=== PATIENT | male | born 1940 | race Caucasian/White ===

== ENCOUNTER 2020-01-29 08:17 | Outpatient (CLI) | payer MEDICARE, SELFPAY ==
--- NOTE | 2020-01-29 09:50 | ONC FU_ITS ---
Dr. Atwood Patient Follow-Up Note Patient: Lawson Castaneda Unit #: [id number]: 1940 Dicatated By: Mayo Atwood M.D.Date of Visit:Jan 29, 2020 Onc Med Follow-up/Prog Note Chief Complaint: Colon cancer. 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 He had seen Dr. Brown for anemia in December 2015. His laboratory studies were consistent with iron deficiency. Following parenteral iron replacement with Injectafer his hemoglobin increased from 8.8 to 11.6 g. In January 2016 he underwent GI evaluation with EGD and colonoscopy. The upper endoscopy showed evidence of reflux esophagitis, gastritis, and Lepe's esophagitis, but without dysplasia. The colonoscopy showed evidence of multiple widemouth diverticula in the mid descending colon. There was noted to be dark altered blood, but no signs of active bleeding. There were no other abnormalities noted. Subsequent to that procedure, he developed problems with abdominal pain and gas . His symptoms gradually worsened, and in June 2016 he was admitted to [facility] with evidence of distal small bowel obstruction. By CT scan, it did appear that the obstruction may have been extending into the transverse colon, but it was not well defined. He initially underwent placement of a colonic stent. On 07/02/2016 he underwent laparoscopic subtotal colectomy with stapled ileocolic anastomosis. The resection included the terminal ileum through the descending colon. He also underwent repair of an umbilical hernia. Pathology showed invasive moderately differentiated adenocarcinoma with transmural invasion into surrounding pericolonic adipose tissue. Tumor was noted to involve the serosal surface. The specimen included four additional adenomatous polyps. There was no involvement in 14 lymph nodes. The pathologic staging was pT4a, pN0. I had seen him initially on 08/09/2016 for further discussion regarding adjuvant chemotherapy. Ultimately, he opted not to take treatment, and he was then followed on observation/expectant management. His other medical illnesses include hypertension, hyperlipidemia, and GERD/peptic ulcer disease. He underwent bioprosthetic aortic valve replacement in 2001, and he has chronic atrial fibrillation. He has never smoked cigarettes, but he does chew tobacco. He also has moderate alcohol use. INTERIM HISTORY: Surveillance CT scans of the chest, abdomen, and pelvis on 06/27/2018 showed no strong evidence for metastatic disease, but the study was limited due to lack of IV contrast. As of his follow-up visit in December 2018 he appeared stable clinically with no evidence of recurrence of the colon cancer. At that point he was scheduled to see Dr. Brizuela for surveillance endoscopy studies, but he opted to cancel it because of transportation issues. He has declined to have any further surveillance CT scanning because he developed significant neck pain from lying flat on the table with his last CT. He is seen for a follow-up visit. He has been feeling pretty good generally. His energy has been good. He is still going to cardiac rehab 3 days a week and he is doing light work at home. ECOG score is 1. He has good appetite. His weight is been stable. He has no fever or night sweats. He indicates that he had been having a problem with sleepwalking, but not as much after he cut back on his alcohol intake. He still takes sips of whiskey for about an hour or so before he goes to bed at night. He says his breathing has been good. He has just occasional cough. He does not complain of shortness of breath or chest pain. He has very little nausea. He occasionally has postprandial gas. Bowel function has been good. His voiding symptoms are improved with tamsulosin, but he is now taking doxazosin instead because he felt the tamsulosin made him feel too sleepy in the morning. He currently is not having any significant joint or bone pain. He has no focal neurologic symptoms. He has had ongoing problems with his venous stasis. Medications: Aspirin 1 Tablet (of 325 mg) Oral daily, C 1000 1 Tablet (of 1000 mg) Oral daily, CVS D3 1 Tablet (of 800 Units) Capsule Oral daily, Doxazosin Mesylate 1 Tablet (of 4 mg) Oral daily, Fish Oil 1 Capsule (of 1200 mg) Oral daily, K-Tab 1 Tablet (of 20 meq) Tablet, controlled release Oral q 2 days, Lasix 1 Tablet (of 40 mg) Oral q 2 days on Every Other Day, Levothroid 1 Tablet (of 112 mcg) Oral daily, Multivitamin Adults 50+ Tablet Oral daily Allergies: No Known Allergies. Review of Systems: Constitutional - His energy is pretty good. He is still doing cardiac rehab and he is doing light work at home. His appetite is good. His weight is stable. No fever or night sweats. ECOG score is 1, ENMT - No sinus congestion/drainage. No mouth sores. No sore throat or difficulty swallowing, Hematologic/Lymphatic - He bruises easily, Respiratory - No shortness of breath. No cough. No pleuritic pain or hemoptysis, Cardiovascular - No angina pain. No palpitations, Gastrointestinal - He has very little nausea. He occasionally has post prandial gas. No heartburn or acid reflux. No diarrhea or constipation. No blood in the stool or black stools, Genitourinary (M) - His bladder function improved with tamsulosin, though he is now taking doxazocin because the tamsulosin made him too sleepy in the morning. No dysuria or hematuria. No urgency or incontinence, Musculoskeletal - No joint or bone pain, Integumentary - He has venous stasis problems with both legs and he has some drainage with it, Neurologic - No headache or dizziness. No numbness/paresthesias or other focal neurologic symptoms, Psychiatric - No anxiety or depression. He sleeps OK, but he apparently was having some issues with sleep walking. He says this has improved since he cut back on his alcohol use. Vital Signs: Performed on Jan 29, 2020 08:27 Height - 65.00 in Weight - 173.6 lbs (HIGH) BSA - 1.86 sq.m BMI - 28.89 Temperature - 98.4 F Pulse - 96 /min Respiration - 20 /min BP - 152/64 mm(hg) (HIGH) O2 Sat - 97 % Pain - 0 Physical Examination: Constitutional - He looks pretty good generally, Eyes - Sclerae nonicteric. Conjunctivae clear, ENMT - No lesions noted in the oral cavity, Hematologic/Lymphatic - No cervical, clavicular, or axillary adenopathy, Respiratory - Lungs are clear with good air movement bilaterally, Cardiovascular - Heart rhythm appears to be regular but with a premature beat fairly consistently every 4th to 5th beat. There is a II/ systolic murmur. There is no gallop or rub noted, Abdomen - Mildly distended and tympanic. Liver and spleen are not enlarged. There is no abdominal mass or ascites noted and there is no inguinal adenopathy, Extremities - There are severe venous stasis changes in both legs. There is mild lower extremity edema. There is some recent drainage which appears to be worse on the left, Neurologic - No focal neurologic deficits noted. Lab/Imaging: Test performed on Jan 25, 2020 06:50 Glucose 96 mg/dL BUN 10 mg/dL Creatinine 0.95 mg/dL Cr Clearance (Est) 67.92 mL/min Sodium 141 mmol/L Potassium 4.4 mmol/L Chloride 104 mmol/L CO2 24 mmol/L Calcium 9.1 mg/dL Protein, Total 7.1 g/dL Albumin 4.3 g/dL Bilirubin, Total 0.4 mg/dL Alkaline Phosphatase 90 IU/L AST (SGOT) 18 IU/L ALT (SGPT) 7 IU/L WBC 2.9 10^9/L RBC 3.58 10^12/L HGB 12.5 g/dL HCT 38.0 % MCV 106.1 fl MCH 34.9 pg MCHC 32.9 g/dL RDW 13.7 % Platelet Count 132 10^9/L MPV 10.0 fL Neutrophils (Gran) 1.59 10^9/L Lymphocytes 0.82 10^9/L Monocytes 0.35 10^9/L Eosinophils 0.15 10^9/L Basophils 0.02 10^9/L Manual Lymphocytes 28 % Manual Monocytes 12 % Manual Eosinophils 5 % Manual Basophils 1 % CEA 4.0 ng/mL Impression: 1. 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 2. He underwent laparoscopic subtotal colectomy (terminal ileum through the ascending colon) on 07/02/2016. 3. He had initially presented with iron deficiency anemia. 4. He has mild pancytopenia, but that does appear to be chronic. His other medical illnesses include: 5. Hypertension. 6. Hyperlipidemia. 7. He underwent porcine aortic valve replacement in 2011. 8. He has chronic atrial fibrillation. 9. He also has GERD and history of peptic ulcer disease. In addition, there was evidence of Lepe's esophagus on his EGD in January 2016. 10. He has nicotine dependence (chewing tobacco). He was offered adjuvant chemotherapy with Xeloda, which he declined. He was then followed on observation/expectant management. He had surveillance CT scans in June 2018, which showed no evidence of recurrent or metastatic neoplasm. He reported having problems afterwards related to the oral contrast. He with scheduled for surveillance colonoscopy following his visit in December 2018, but he canceled that due to transportation issues, and he also has declined to have any further surveillance CT scanning. During follow-up he has had some ongoing problems associated with venous stasis of the lower extremities. His overall clinical status, though, appears stable with no obvious recurrence of his colon cancer. Plan: He remains on observation/expectant management. I will see him again in 6 months. Signed By: Mayo Atwood M.D. <<Signature on File>>
== END 2020-01-29 08:18 | disposition home or self-care (01) ==
LOC: ONCMED 08:17
PROVIDERS: Family Provider Family Medicine; PCP Family Medicine; Visit Provider Internal Medicine Medical Oncology
DX: Z08 Encounter for follow-up examination after completed treatment for malignant neoplasm (principal); Z85.038 Personal history of other malignant neoplasm of large intestine; I10 Essential (primary) hypertension; E78.5 Hyperlipidemia, unspecified; K21.9 Gastro-esophageal reflux disease without esophagitis; I48.20 Chronic atrial fibrillation, unspecified; F17.220 Nicotine dependence, chewing tobacco, uncomplicated; F10.10 Alcohol abuse, uncomplicated; I87.8 Other specified disorders of veins; Z90.49 Acquired absence of other specified parts of digestive tract; Z95.3 Presence of xenogenic heart valve; Z87.11 Personal history of peptic ulcer disease; Z79.899 Other long term (current) drug therapy
CPT/HCPCS: G0463

== ENCOUNTER 2020-02-24 07:57 | Outpatient (RCR) | payer MEDICARE, SELFPAY | END 2020-03-01 23:59 | disposition home or self-care (01) | LOC: WOUND 07:57 | PROVIDERS: Family Provider Family Medicine; PCP Family Medicine; Visit Provider Nurse Practitioner Family | DX: I87.2 Venous insufficiency (chronic) (peripheral) (principal); L97.822 Non-pressure chronic ulcer of other part of left lower leg with fat layer exposed; L97.812 Non-pressure chronic ulcer of other part of right lower leg with fat layer exposed | CPT/HCPCS: 11042; 87070; 87077; 87176; 87184; 87186; 87205; 99203 ==

== ENCOUNTER 2020-03-02 07:58 | Outpatient (RCR) | payer MEDICARE, SELFPAY | END 2020-03-31 23:59 | disposition home or self-care (01) | LOC: WOUND 07:58 | PROVIDERS: Family Provider Family Medicine; PCP Family Medicine; Visit Provider Thoracic Surgery (Cardiothoracic Vascular Surgery) | DX: I87.2 Venous insufficiency (chronic) (peripheral) (principal); L97.822 Non-pressure chronic ulcer of other part of left lower leg with fat layer exposed | CPT/HCPCS: 11042; A6545 ==

== ENCOUNTER 2020-05-10 07:49 | Outpatient (CLI) | payer MEDICARE, SELFPAY | END 2020-05-10 07:50 | disposition home or self-care (01) | LOC: WOUND 07:50 | PROVIDERS: Family Provider Family Medicine; PCP Family Medicine; Visit Provider Thoracic Surgery (Cardiothoracic Vascular Surgery) | DX: I87.2 Venous insufficiency (chronic) (peripheral) (principal); L97.322 Non-pressure chronic ulcer of left ankle with fat layer exposed | CPT/HCPCS: 11042; G0463 ==

== ENCOUNTER 2020-05-12 07:50 | Outpatient (RCR) | payer MEDICARE, SELFPAY | END 2020-05-31 23:59 | disposition home or self-care (01) | LOC: WOUND 07:50 | PROVIDERS: Family Provider Family Medicine; PCP Family Medicine; Visit Provider Nurse Practitioner Family | DX: Z51.89 Encounter for other specified aftercare (principal) | CPT/HCPCS: 29581 ==

== ENCOUNTER 2020-05-18 08:19 | Outpatient (CLI) | payer MEDICARE, SELFPAY | END 2020-05-18 08:20 | disposition home or self-care (01) | LOC: WOUND 08:20 | PROVIDERS: Family Provider Family Medicine; PCP Family Medicine; Visit Provider Thoracic Surgery (Cardiothoracic Vascular Surgery) | DX: Z09 Encounter for follow-up examination after completed treatment for conditions other than malignant neoplasm (principal) | CPT/HCPCS: 99212; A6530 ==

== ENCOUNTER 2020-07-13 07:54 | Outpatient (CLI) | payer MEDICARE, SELFPAY | END 2020-07-13 07:55 | disposition home or self-care (01) | LOC: WOUND 07:55 | PROVIDERS: Family Provider Family Medicine; PCP Family Medicine; Visit Provider Thoracic Surgery (Cardiothoracic Vascular Surgery) | DX: I89.0 Lymphedema, not elsewhere classified (principal) | CPT/HCPCS: 29581 ==

== ENCOUNTER 2020-07-15 08:43 | Outpatient (CLI) | payer MEDICARE, SELFPAY | END 2020-07-15 08:44 | disposition home or self-care (01) | LOC: WOUND 08:45 | PROVIDERS: Family Provider Family Medicine; PCP Family Medicine; Visit Provider Surgery | DX: I89.0 Lymphedema, not elsewhere classified (principal) | CPT/HCPCS: 29581 ==

== ENCOUNTER 2020-07-20 08:10 | Outpatient (CLI) | payer MEDICARE, SELFPAY | END 2020-07-20 08:11 | disposition home or self-care (01) | LOC: WOUND 08:11 | PROVIDERS: Family Provider Family Medicine; PCP Family Medicine; Visit Provider Nurse Practitioner Family | DX: I89.0 Lymphedema, not elsewhere classified (principal) | CPT/HCPCS: 29581 ==

== ENCOUNTER 2020-07-20 09:16 | Outpatient (CLI) | payer MEDICARE, SELFPAY ==
[2020-07-20 09:55] LABS: Basophils % 0.8 %; Eosinophils # 0.3 10^3/uL (0.0-0.8); Hematocrit 37.7 % (42.0-52.0); Hemoglobin 12.4 g/dL (11.7-16.6); Lymphocytes # 0.7 10^3/uL (0.8-4.8); Lymphocytes % 19.5 %; Mean Corpuscular HGB Conc 32.9 g/dL (30.0-36.0); Mean Corpuscular Hemoglobin 35.1 pg (28.0-34.0); Mean Corpuscular Volume 106.8 fL (80-94); Mean Platelet Volume 10.2 fL (7.4-10.4); Monocytes # 0.4 10^3/uL (0.2-0.9); Monocytes % 11.3 %; Neutrophils % 60.4 %; Nucleated Red Blood Cells % 0 %; Platelet Count 144 10^3/cmm (130-400); Red Blood Count 3.53 10^6/uL (4.1-5.3); Red Cell Distribution Width 13.1 % (12.1-15.1); White Blood Count 3.6 10^3/uL (4.0-10.0)
[2020-07-20 10:26] LABS: Carcinoembryonic Antigen 5.2 ng/mL (0.0-4.7)
[2020-07-20 10:44] LABS: Alanine Aminotransferase 22 U/L (0-41); Albumin Level 4.5 g/dL (3.5-5.2); Alkaline Phosphatase 87 IU/L (40-130); Anion Gap 17.4 (5-19); Aspartate Amino Transferase 42 U/L (0-40); Blood Urea Nitrogen 9 mg/dL (8-23); Calcium 9.1 mg/dL (8.5-10.5); Carbon Dioxide 26 mmol/L (22-29); Chloride 99 mmol/L (98-107); Globulin 3.4 g/dL (1.3-4.6); Glucose 107 mg/dL (65-115); Osmolality Calculated 282 mOsm/kg (285-295); Potassium 4.4 mmol/L (3.5-5.1); Sodium 138 mmol/L (136-145); Total Bilirubin 0.7 mg/dL (0.15-1.2); Total Protein 7.9 g/dL (6.6-8.7)
== END 2020-07-20 09:17 | disposition home or self-care (01) ==
LOC: ONCMED 09:22
PROVIDERS: PCP Family Medicine; Visit Provider Internal Medicine Medical Oncology
DX: C18.4 Malignant neoplasm of transverse colon (principal); D50.0 Iron deficiency anemia secondary to blood loss (chronic); I48.91 Unspecified atrial fibrillation; I87.2 Venous insufficiency (chronic) (peripheral); E03.9 Hypothyroidism, unspecified; Z79.01 Long term (current) use of anticoagulants; Z95.3 Presence of xenogenic heart valve
CPT/HCPCS: 80053; 82378; 85025

== ENCOUNTER 2020-07-22 07:51 | Outpatient (CLI) | payer MEDICARE, SELFPAY ==
--- NOTE | 2020-07-22 09:01 | ONC FU_ITS ---
Dr. Atwood Patient Follow-Up Note Patient: Lawson Castaneda Unit #: [id number]: 1940 Dicatated By: Mayo Atwood M.D.Date of Visit:Jul 22, 2020 Onc Med Follow-up/Prog Note Chief Complaint: Colon cancer. 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 He had seen Dr. Brown for anemia in December 2015. His laboratory studies were consistent with iron deficiency. Following parenteral iron replacement with Injectafer his hemoglobin increased from 8.8 to 11.6 g. In January 2016 he underwent GI evaluation with EGD and colonoscopy. The upper endoscopy showed evidence of reflux esophagitis, gastritis, and Lepe's esophagitis, but without dysplasia. The colonoscopy showed evidence of multiple widemouth diverticula in the mid descending colon. There was noted to be dark altered blood, but no signs of active bleeding. There were no other abnormalities noted. Subsequent to that procedure, he developed problems with abdominal pain and gas . His symptoms gradually worsened, and in June 2016 he was admitted to [facility] with evidence of distal small bowel obstruction. By CT scan, it did appear that the obstruction may have been extending into the transverse colon, but it was not well defined. He initially underwent placement of a colonic stent. On 07/02/2016 he underwent laparoscopic subtotal colectomy with stapled ileocolic anastomosis. The resection included the terminal ileum through the descending colon. He also underwent repair of an umbilical hernia. Pathology showed invasive moderately differentiated adenocarcinoma with transmural invasion into surrounding pericolonic adipose tissue. Tumor was noted to involve the serosal surface. The specimen included four additional adenomatous polyps. There was no involvement in 14 lymph nodes. The pathologic staging was pT4a, pN0. I had seen him initially on 08/09/2016 for further discussion regarding adjuvant chemotherapy. Ultimately, he opted not to take treatment, and he was then followed on observation/expectant management. Surveillance CT scans of the chest, abdomen, and pelvis on 06/27/2018 showed no strong evidence for metastatic disease, but the study was limited due to lack of IV contrast. As of his follow-up visit in December 2018 he appeared stable clinically with no evidence of recurrence of the colon cancer. At that point he was scheduled to see Dr. Brizuela for surveillance endoscopy studies, but he opted to cancel it because of transportation issues. He has declined to have any further surveillance CT scanning because he developed significant neck pain from lying flat on the table with his last CT. His other medical illnesses include hypertension, hyperlipidemia, and GERD/peptic ulcer disease. He underwent bioprosthetic aortic valve replacement in 2001, and he has chronic atrial fibrillation. He has never smoked cigarettes, but he does chew tobacco. He also has moderate alcohol use. INTERIM HISTORY: He is seen for a follow-up visit. He has been feeling pretty good generally. He has been going to wound care for treatment of venous stasis ulceration on the left leg, and he says it has now pretty much healed up. His energy is pretty good, though he says he does not walk very well outside, and his activity is limited. He is able to do light work at home. ECOG score is 1. He has good appetite. His weight is down 6 pounds from his last visit. He does not have fever or night sweats. He has just occasional cough. He does not complain of shortness of breath or chest pain. He has no GI complaints. Bladder function has been adequate with medication. Lately he has been alternating tamsulosin and doxazosin. He has no significant joint or bone pain. He does not complain of headache or dizziness. He has no focal neurologic symptoms. He does have some chronic anxiety, which he manages very well with extended release alprazolam, which he takes as needed. He also occasionally takes a 0.5 mg alprazolam at bedtime for insomnia. Medications: Aspirin 1 Tablet (of 325 mg) Oral daily, C 1000 1 Tablet (of 1000 mg) Oral daily, CVS D3 1 Tablet (of 800 Units) Capsule Oral daily, Doxazosin Mesylate 1 Tablet (of 4 mg) Oral daily, Fish Oil 1 Capsule (of 1200 mg) Oral daily, K-Tab 1 Tablet (of 20 meq) Tablet, controlled release Oral q 2 days, Lasix 1 Tablet (of 40 mg) Oral q 2 days on Every Other Day, Levothroid 1 Tablet (of 112 mcg) Oral daily, Multivitamin Adults 50+ Tablet Oral daily, Pantoprazole Sodium 1 Tablet (of 40 mg) Tablet, enteric coated Oral daily, Potassium Chloride ER Tablet, controlled release Oral, Tamsulosin HCl 1 (0.4 mg) Capsule Oral daily Allergies: No Known Allergies. Review of Systems: Constitutional - He has been feeling pretty good generally. His energy is good. He can do some light walking and house work. His appetite is good and his weight is down 6 pounds from last visit. No fever, night sweats, or hot flashes. ECOG score is 1, ENMT - No sinus congestion/drainage. No mouth sores. No sore throat or difficulty swallowing, Hematologic/Lymphatic - He bruises easily, Respiratory - No shortness of breath. No cough. No pleuritic pain or hemoptysis, Cardiovascular - No angina pain. No palpitations, Gastrointestinal - No nausea or vomiting. No heartburn or acid reflux. No diarrhea or constipation. No blood in the stool or black stools, Genitourinary (M) - No dysuria or hematuria. No urinary frequency. No urgency or incontinence. He is taking Flomax and doxazosin for urinary retention, Musculoskeletal - No joint or bone pain, Integumentary - He has been going to wound care for a venous stasis ulceration on the left leg. He says it is pretty well healed now, Neurologic - No headache. No numbness or tingling. No other focal neurologic symptoms. He has some difficulty with balance. He has had occasional falls, Psychiatric - He has some anxiety, and he is taking extended release alprazolam for it. No depression. He has some insomnia. Vital Signs: Performed on Jul 22, 2020 08:20 Height - 65.00 in Weight - 167 lbs (LOW) BSA - 1.83 sq.m BMI - 27.79 Temperature - 97.9 F (LOW) Pulse - 76 /min Respiration - 16 /min BP - 128/78 mm(hg) O2 Sat - 99 % Pain - 0 Physical Examination: Constitutional - He looks pretty good generally, Eyes - Sclerae nonicteric. Conjunctivae clear, ENMT - No lesions noted in the oral cavity, Hematologic/Lymphatic - No cervical, clavicular, or axillary adenopathy, Respiratory - Lungs are clear with good air movement bilaterally, Cardiovascular - Heart rhythm is regular with occasional premature beats. There is a II/ systolic murmur. There is no gallop or rub noted, Abdomen - Mildly distended and tympanic. Liver and spleen are not enlarged. There is no abdominal mass or ascites noted and there is no inguinal adenopathy, Extremities - There are severe venous stasis changes in both legs. There is mild lower extremity edema, Neurologic - No focal neurologic deficits noted. Lab/Imaging: CBC shows hemoglobin 12.4 g, white blood cell count 3600, and platelet count 144,000. Comprehensive metabolic profile is unremarkable except for minimally elevated SGOT at 42/40 U/L. The bilirubin and other liver enzymes are normal. The CEA level is slightly elevated at 5.2 ng/mL. Impression: 1. 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 2. He underwent laparoscopic subtotal colectomy (terminal ileum through the ascending colon) on 07/02/2016. 3. He had initially presented with iron deficiency anemia. 4. He has mild pancytopenia, but that does appear to be chronic. His other medical illnesses include: 5. Hypertension. 6. Hyperlipidemia. 7. He underwent porcine aortic valve replacement in 2011. 8. He has chronic atrial fibrillation. 9. He also has GERD and history of peptic ulcer disease. In addition, there was evidence of Lepe's esophagus on his EGD in January 2016. 10. He has nicotine dependence (chewing tobacco). He was offered adjuvant chemotherapy with Xeloda, which he declined. He was then followed on observation/expectant management. He had surveillance CT scans in June 2018, which showed no evidence of recurrent or metastatic neoplasm. He reported having problems afterwards related to the oral contrast. He was scheduled for surveillance colonoscopy following his visit in December 2018, but he canceled that due to transportation issues, and he also has declined to have any further surveillance CT scanning. During subsequent follow-up he has had a slightly elevated CEA level. The significance of this is uncertain. He is otherwise been stable clinically with no obvious recurrence of the colon cancer. During follow-up he has had some ongoing problems associated with venous stasis of the lower extremities. His overall clinical status, though, appears stable with no obvious recurrence of his colon cancer. Plan: He remains on observation/expectant management for the colon cancer. I will see him again in 6 months. Signed By: Mayo Atwood M.D. <<Signature on File>>
== END 2020-07-22 07:52 | disposition home or self-care (01) ==
LOC: ONCMED 07:55
PROVIDERS: PCP Family Medicine; Visit Provider Internal Medicine Medical Oncology
DX: Z08 Encounter for follow-up examination after completed treatment for malignant neoplasm (principal); Z85.038 Personal history of other malignant neoplasm of large intestine; D61.818 Other pancytopenia; I10 Essential (primary) hypertension; E78.5 Hyperlipidemia, unspecified; I48.19 Other persistent atrial fibrillation; K21.9 Gastro-esophageal reflux disease without esophagitis; F17.220 Nicotine dependence, chewing tobacco, uncomplicated
CPT/HCPCS: G0463

== ENCOUNTER 2020-07-27 07:44 | Outpatient (CLI) | payer MEDICARE, SELFPAY | END 2020-07-27 07:45 | disposition home or self-care (01) | LOC: WOUND 07:45 | PROVIDERS: PCP Family Medicine; Visit Provider Emergency Medicine | DX: I89.0 Lymphedema, not elsewhere classified (principal) | CPT/HCPCS: 29581 ==

== ENCOUNTER 2020-08-03 08:09 | Outpatient (CLI) | payer MEDICARE, SELFPAY | END 2020-08-03 08:10 | disposition home or self-care (01) | LOC: WOUND 08:10 | PROVIDERS: PCP Family Medicine; Visit Provider Emergency Medicine | DX: I89.0 Lymphedema, not elsewhere classified (principal); Z09 Encounter for follow-up examination after completed treatment for conditions other than malignant neoplasm | CPT/HCPCS: 99212; A6545 ==

== ENCOUNTER 2020-08-16 08:24 | Outpatient (CLI) | payer MEDICARE, SELFPAY ==
--- NOTE | 2020-08-16 08:45 | USCV_ITS ---
Lawson Castaneda Age: 79 Gender: M : 1940 Exam Date: 08/16/2020 08:35 Ordering Phys: Ponce Blanchard M.D ([email or web address]) Technologist: Teja Rosario Exam Location: [facility] – [place], [place] Indication: PROS AO BP: 124 / 72 HR: 92 Rhythm: Atrial fibrillation Technical Quality: Fair MEASUREMENTS (Male / Female) Normal Values 2D ECHO LV Diastolic Diameter PLAX 4.6 cm 4.2 - 5.9 / 3.9 - 5.3 cm LV Systolic Diameter PLAX 3.0 cm IVS Diastolic Thickness 1.1 cm 0.6 - 1.0 / 0.6 - 0.9 cm IVS Systolic Thickness 1.6 cm LVPW Diastolic Thickness 1.1 cm 0.6 - 1.0 / 0.6 - 0.9 cm LVPW Systolic Thickness 1.6 cm LVOT Diameter 2.0 cm LV Ejection Fraction 2D Teich 64.5 % LV Ejection Fraction MOD 2C 60.5 % LV Ejection Fraction 2C AL 59.5 % LA Diameter 5.8 cm LA Width 4.9 cm LA Height 6.2 cm RA Width 4.2 cm RA Height 4.2 cm Aorta at Sinotubular Diameter 1.0 cm M-MODE LV Diastolic Diameter MM 5.2 cm 4.2 - 5.9 / 3.9 - 5.3 cm LV Systolic Diameter MM 3.2 cm LV Ejection Fraction MM Teich 68.6 % IVS Diastolic Thickness MM 1.1 cm 0.6 - 1.0 / 0.6 - 0.9 cm IVS Systolic Thickness MM 1.5 cm LVPW Diastolic Thickness MM 1.1 cm 0.6 - 1.0 / 0.6 - 0.9 cm LVPW Systolic Thickness MM 2.1 cm RV Diastolic Diameter MM 2.4 cm Aortic Annulus Diameter 4.0 cm LA Ao Ratio MM 1.5 MV E Point Septal Separation 1.3 cm DOPPLER AV Peak Velocity 246.0 cm/s LVOT Peak Velocity 87.0 cm/s AV Area Cont Eq vti 1.4 cm squared AV Area Cont Eq pk 1.1 cm squared MV Area PHT 5.0 cm squared Mitral E to A Ratio 2.1 MV E' Velocity 18.0 cm/s Mitral E to MV E' Ratio 13.2 Mitral E to LV E' Lateral Ratio 9.9 Mitral E to LV E' Septal Ratio 19.9 TR Peak Velocity 249.0 cm/s TR Peak Gradient 24.8 mmHg TV Peak E Velocity 147.0 cm/s Right Atrial Pressure 3.0 mmHg Pulmonary Artery Systolic Pressu 27.8 mmHg PV Peak Velocity 136.0 cm/s FINDINGS Left Ventricle Normal left ventricular size and systolic function. No regional wall motion abnormalities are noted. LV systolic function is 55 to 60%. Mild LVH is noted. Diastolic function is indeterminate because of atrial fibrillation. Right Ventricle The right ventricle is normal in size and function. Right Atrium The right atrium is normal in size. Left Atrium The left atrium is normal in size. Mitral Valve Mitral annular calcification is noted. There is no significant stenosis. Mild mitral regurgitation is present. Aortic Valve Bioprosthetic aortic valve is in place. No significant stenosis is noted. Mean gradient across the valve is 9.7 mmHg. DVI is 0.35 which is normal Tricuspid Valve Structurally normal tricuspid valve without significant stenosis or regurgitation. Insufficient TR jet to calculate RVSP. Pulmonic Valve Structurally normal pulmonic valve without significant stenosis. There is no pulmonic regurgitation. Pericardium Normal pericardium without effusion. Aorta Normal ascending aorta dimension. CONCLUSIONS LV systolic function is normal with EF of 55 to 60%. Diastolic function is indeterminate because of atrial fibrillation. Bioprosthetic aortic valve is noted. DVI is 0.35 which is normal. No stenosis present. Compared with echocardiogram from 01/03/2016, no significant changes are noted. Ponce Blanchard MD (Electronically Signed) Final Date: 17 August 2020 09:28 S
== END 2020-08-16 08:25 | disposition home or self-care (01) ==
LOC: US 08:26
PROVIDERS: PCP Family Medicine; Visit Provider Internal Medicine
DX: R06.00 Dyspnea, unspecified (principal); I48.91 Unspecified atrial fibrillation; Z95.2 Presence of prosthetic heart valve
CPT/HCPCS: 93306

== ENCOUNTER 2021-01-27 08:01 | Outpatient (CLI) | payer MEDICARE, SELFPAY ==
--- NOTE | 2021-01-27 14:59 | ONC FU_ITS ---
Dr. Atwood Patient Follow-Up Note Patient: Lawson Castaneda Unit #: [id number]: 1940 Dicatated By: Mayo Atwood M.D.Date of Visit:Jan 27, 2021 Onc Med Follow-up/Prog Note Chief Complaint: Colon cancer. 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 He had seen Dr. Brown for anemia in December 2015. His laboratory studies were consistent with iron deficiency. Following parenteral iron replacement with Injectafer his hemoglobin increased from 8.8 to 11.6 g. In January 2016 he underwent GI evaluation with EGD and colonoscopy. The upper endoscopy showed evidence of reflux esophagitis, gastritis, and Lepe's esophagitis, but without dysplasia. The colonoscopy showed evidence of multiple widemouth diverticula in the mid descending colon. There was noted to be dark altered blood, but no signs of active bleeding. There were no other abnormalities noted. Subsequent to that procedure, he developed problems with abdominal pain and gas . His symptoms gradually worsened, and in June 2016 he was admitted to [facility] with evidence of distal small bowel obstruction. By CT scan, it did appear that the obstruction may have been extending into the transverse colon, but it was not well defined. He initially underwent placement of a colonic stent. On 07/02/2016 he underwent laparoscopic subtotal colectomy with stapled ileocolic anastomosis. The resection included the terminal ileum through the descending colon. He also underwent repair of an umbilical hernia. Pathology showed invasive moderately differentiated adenocarcinoma with transmural invasion into surrounding pericolonic adipose tissue. Tumor was noted to involve the serosal surface. The specimen included four additional adenomatous polyps. There was no involvement in 14 lymph nodes. The pathologic staging was pT4a, pN0. I had seen him initially on 08/09/2016 for further discussion regarding adjuvant chemotherapy. Ultimately, he opted not to take treatment, and he was then followed on observation/expectant management. Surveillance CT scans of the chest, abdomen, and pelvis on 06/27/2018 showed no strong evidence for metastatic disease, but the study was limited due to lack of IV contrast. As of his follow-up visit in December 2018 he appeared stable clinically with no evidence of recurrence of the colon cancer. At that point he was scheduled to see Dr. Brizuela for surveillance endoscopy studies, but he opted to cancel it because of transportation issues. He has declined to have any further surveillance CT scanning because he developed significant neck pain from lying flat on the table with his last CT. His other medical illnesses include hypertension, hyperlipidemia, and GERD/peptic ulcer disease. He underwent bioprosthetic aortic valve replacement in 2001, and he has chronic atrial fibrillation. He has never smoked cigarettes, but he does chew tobacco. He also has moderate alcohol use. INTERIM HISTORY: He is seen for a follow-up visit. He has been feeling pretty good generally. He does have somewhat limited activity, but he is able to do light work. ECOG score is 1. He has good appetite. He has no fever or night sweats. He does not complain of shortness of breath, cough, or chest pain. He has no GI complaints. Bladder function with medication. He now prefers to take doxazosin and tamsulosin on an alternating day schedule. He has no significant joint or bone pain. He does not complain of headache or dizziness. He has no focal neurologic symptoms. Medications: Aspirin 1 Tablet (of 325 mg) Oral daily, C 1000 1 Tablet (of 1000 mg) Oral daily, CVS D3 1 Tablet (of 800 Units) Capsule Oral daily, Doxazosin Mesylate 1 Tablet (of 4 mg) Oral daily, Fish Oil 1 Capsule (of 1200 mg) Oral daily, K-Tab 1 Tablet (of 20 meq) Tablet, controlled release Oral q 2 days, Lasix 1 Tablet (of 40 mg) Oral daily, Levothroid 1 Tablet (of 112 mcg) Oral daily, Multivitamin Adults 50+ Tablet Oral daily, Pantoprazole Sodium 1 Tablet (of 40 mg) Tablet, enteric coated Oral daily, Potassium Chloride ER Tablet, controlled release Oral, Tamsulosin HCl 1 (0.4 mg) Capsule Oral daily Allergies: No Known Allergies. Vital Signs: Performed on Jan 27, 2021 08:17 Height - 65.00 in Weight - 175.4 lbs (HIGH) BSA - 1.87 sq.m BMI - 29.19 Temperature - 97.5 F (LOW) Pulse - 71 /min Respiration - 18 /min BP - 140/80 mm(hg) O2 Sat - 97 % Pain - 0 Physical Examination: Constitutional - He looks pretty good generally, Eyes - Sclerae nonicteric. Conjunctivae clear, ENMT - No lesions noted in the oral cavity, Hematologic/Lymphatic - No cervical, clavicular, or axillary adenopathy, Respiratory - Lungs are clear with good air movement bilaterally, Cardiovascular - Heart rhythm is regular. There is a II/ systolic murmur. There is no gallop or rub noted, Abdomen - Mildly distended and tympanic. Liver and spleen are not enlarged. There is no abdominal mass or ascites noted and there is no inguinal adenopathy, Extremities - There are severe venous stasis changes in both legs. There is mild lower extremity edema, Neurologic - No focal neurologic deficits noted. Lab/Imaging: Test performed on Jan 24, 2021 08:06 Glucose 93 mg/dL BUN 9 mg/dL Creatinine 0.77 mg/dL Cr Clearance (Est) 79.25 mL/min Sodium 134 mmol/L Potassium 4.1 mmol/L Chloride 95 mmol/L CO2 25 mmol/L Calcium 9.7 mg/dL Protein, Total 7.4 g/dL Albumin 4.2 g/dL Bilirubin, Total 0.9 mg/dL Alkaline Phosphatase 88 IU/L AST (SGOT) 48 IU/L ALT (SGPT) 26 IU/L WBC 3.5 10^9/L RBC 3.67 10^12/L HGB 12.7 g/dL HCT 37.0 % MCV 100.8 fl MCH 34.6 pg MCHC 34.3 g/dL RDW 12.5 % Platelet Count 134 10^9/L MPV 10.2 fL Neutrophils (Gran) 2.06 10^9/L Lymphocytes 0.83 10^9/L Monocytes 0.47 10^9/L Eosinophils 0.12 10^9/L Basophils 0.03 10^9/L Manual Lymphocytes 24 % Manual Monocytes 13 % Manual Eosinophils 3 % Manual Basophils 1 % Problem List: 1. 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 He underwent laparoscopic subtotal colectomy (terminal ileum through the ascending colon) on 07/02/2016. 2. He has mild pancytopenia, but that does appear to be chronic. 3. Hypertension. 4. Hyperlipidemia. 5. He underwent porcine aortic valve replacement in 2011. 6. He has chronic atrial fibrillation. 7. He also has GERD and history of peptic ulcer disease. In addition, there was evidence of Lepe's esophagus on his EGD in January 2016. 8. He has nicotine dependence (chewing tobacco). Problems Addressed with this Encounter and Plan: 1. 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 He had iron deficiency anemia at initial presentation. He underwent laparoscopic subtotal colectomy (terminal ileum through the ascending colon) on 07/02/2016. He declined adjuvant chemotherapy. He has been monitored on observation/expectant management. He has had somewhat limited follow-up, as he refused to have further CT scans following the surveillance study in June 2018. He is also refused to have surveillance colonoscopy. His clinical status, though, appears stable. Thus far there has been no evidence of recurrence of the colon cancer. His current CEA level is still not available. Assuming it is stable, I will just plan to see him again in 6 months. 2. He has mild pancytopenia. A specific cause has not been determined, but it does appear to be chronic, and his blood counts have remained stable. Signed By: Mayo Atwood M.D. <<Signature on File>>
== END 2021-01-27 08:02 | disposition home or self-care (01) ==
LOC: ONCMED 08:04
PROVIDERS: PCP Family Medicine; Visit Provider Internal Medicine Medical Oncology
DX: Z08 Encounter for follow-up examination after completed treatment for malignant neoplasm (principal); Z85.038 Personal history of other malignant neoplasm of large intestine; D61.818 Other pancytopenia; Z90.49 Acquired absence of other specified parts of digestive tract
CPT/HCPCS: 99214

== ENCOUNTER 2021-07-28 08:01 | Outpatient (CLI) | payer MEDICARE, SELFPAY ==
[2021-07-28 08:51] LABS: Eosinophils # 0.2 10^3/uL (0.0-0.8); Eosinophils % 6.1 %; Hematocrit 38.7 % (42.0-52.0); Hemoglobin 13.1 g/dL (11.7-16.6); Lymphocytes % 32.8 %; Mean Corpuscular HGB Conc 33.9 g/dL (30.0-36.0); Mean Corpuscular Hemoglobin 35.1 pg (28.0-34.0); Mean Corpuscular Volume 103.8 fl (80-94); Mean Platelet Volume 10.5 fL (7.4-10.4); Monocytes # 0.4 10^3/uL (0.2-0.9); Monocytes % 14.1 %; Neutrophils # 1.41 10^3/uL (1.8-7.7); Neutrophils % 45.4 %; Nucleated Red Blood Cells % 0 %; Platelet Count 123 10^3/cmm (130-400); Red Blood Count 3.73 10^6/uL (4.1-5.3); Red Cell Distribution Width 12.8 % (12.1-15.1); White Blood Count 3.1 10^3/uL (4.0-10.0)
[2021-07-28 09:20] LABS: Alanine Aminotransferase 22 U/L (0-41); Albumin Level 4.4 g/dL (3.5-5.2); Alkaline Phosphatase 107 IU/L (40-130); Anion Gap 16.2 (5-19); Aspartate Amino Transferase 45 U/L (0-40); Blood Urea Nitrogen 6 mg/dL (8-23); Calcium 9.2 mg/dL (8.5-10.5); Carbon Dioxide 28 mmol/L (22-29); Chloride 96 mmol/L (98-107); Globulin 3.2 g/dL (1.3-4.6); Glucose 93 mg/dL (65-115); Osmolality Calculated 279 mOsm/kg (285-295); Potassium 4.2 mmol/L (3.5-5.1); Sodium 136 mmol/L (136-145); Total Bilirubin 0.9 mg/dL (0.15-1.2); Total Protein 7.6 g/dL (6.6-8.7)
[2021-07-28 13:01] LABS: Carcinoembryonic Antigen 3.9 ng/mL (0.0-4.7)
== END 2021-07-28 08:02 | disposition home or self-care (01) ==
LOC: ONCMED 08:05
PROVIDERS: PCP Family Medicine; Visit Provider Internal Medicine Medical Oncology
DX: C18.4 Malignant neoplasm of transverse colon (principal); R97.8 Other abnormal tumor markers; Z79.899 Other long term (current) drug therapy
CPT/HCPCS: 36415; 80053; 82378; 85025

== ENCOUNTER 2021-08-04 06:04 | Outpatient (CLI) | payer MEDICARE, SELFPAY ==
--- NOTE | 2021-08-04 08:29 | ONC FU_ITS ---
Dr. Atwood Patient Follow-Up Note Patient: Lawson Castaneda Unit #: [id number]: 1940 Dicatated By: Mayo Atwood M.D.Date of Visit:Aug 04, 2021 Onc Med Follow-up/Prog Note Chief Complaint: Colon cancer. 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 He had seen Dr. Brown for anemia in December 2015. His laboratory studies were consistent with iron deficiency. Following parenteral iron replacement with Injectafer his hemoglobin increased from 8.8 to 11.6 g. In January 2016 he underwent GI evaluation with EGD and colonoscopy. The upper endoscopy showed evidence of reflux esophagitis, gastritis, and Lepe's esophagitis, but without dysplasia. The colonoscopy showed evidence of multiple widemouth diverticula in the mid descending colon. There was noted to be dark altered blood, but no signs of active bleeding. There were no other abnormalities noted. Subsequent to that procedure, he developed problems with abdominal pain and gas . His symptoms gradually worsened, and in June 2016 he was admitted to [facility] with evidence of distal small bowel obstruction. By CT scan, it did appear that the obstruction may have been extending into the transverse colon, but it was not well defined. He initially underwent placement of a colonic stent. On 07/02/2016 he underwent laparoscopic subtotal colectomy with stapled ileocolic anastomosis. The resection included the terminal ileum through the descending colon. He also underwent repair of an umbilical hernia. Pathology showed invasive moderately differentiated adenocarcinoma with transmural invasion into surrounding pericolonic adipose tissue. Tumor was noted to involve the serosal surface. The specimen included four additional adenomatous polyps. There was no involvement in 14 lymph nodes. The pathologic staging was pT4a, pN0. I had seen him initially on 08/09/2016 for further discussion regarding adjuvant chemotherapy. Ultimately, he opted not to take treatment, and he was then followed on observation/expectant management. Surveillance CT scans of the chest, abdomen, and pelvis on 06/27/2018 showed no strong evidence for metastatic disease, but the study was limited due to lack of IV contrast. As of his follow-up visit in December 2018 he appeared stable clinically with no evidence of recurrence of the colon cancer. At that point he was scheduled to see Dr. Brizuela for surveillance endoscopy studies, but he opted to cancel it because of transportation issues. He then declined to have any further surveillance CT scanning because he developed significant neck pain from lying flat on the table with his last CT. His other medical illnesses include hypertension, hyperlipidemia, and GERD/peptic ulcer disease. He underwent bioprosthetic aortic valve replacement in 2001, and he has chronic atrial fibrillation. He has never smoked cigarettes, but he does chew tobacco. He also has moderate alcohol use. INTERIM HISTORY: He is seen for a follow-up visit. He has been feeling pretty good generally. His leg swelling had increased when he tried cutting his furosemide back to every other day. He is now taking it daily again, and the swelling is getting better. He says his energy is good. He does have limited mobility and activity, but he is able to do light work. ECOG score is 1. He has good appetite. He has no fever or night sweats. He has no shortness of breath, cough, or chest pain. He currently has no GI or complaints. He reports no significant joint or bone pain. He does not complain of headache or dizziness. He has no numbness/paresthesia or other focal neurologic symptoms. Medications: Aspirin 1 Tablet (of 325 mg) Oral daily, C 1000 1 Tablet (of 1000 mg) Oral daily, CVS D3 1 Tablet (of 800 Units) Capsule Oral daily, Doxazosin Mesylate 1 Tablet (of 4 mg) Oral daily, Fish Oil 1 Capsule (of 1200 mg) Oral daily, K-Tab 1 Tablet (of 20 meq) Tablet, controlled release Oral q 2 days, Lasix 1 Tablet (of 40 mg) Oral daily, Levothroid 1 Tablet (of 112 mcg) Oral daily, Multivitamin Adults 50+ Tablet Oral daily, Pantoprazole Sodium 1 Tablet (of 40 mg) Tablet, enteric coated Oral daily, Potassium Chloride ER Tablet, controlled release Oral, Tamsulosin HCl 1 (0.4 mg) Capsule Oral daily Allergies: No Known Allergies. Vital Signs: Performed on Aug 04, 2021 08:11 Height - 65.00 in Weight - 170.6 lbs (LOW) BSA - 1.85 sq.m BMI - 28.39 Temperature - 98.6 F Pulse - 87 /min Respiration - 18 /min BP - 170/78 mm(hg) (HIGH) O2 Sat - 96 % Pain - 0 Fatigue - 0 Physical Examination: Constitutional - He looks pretty good generally, Eyes - Sclerae nonicteric. Conjunctivae clear, ENMT - No lesions noted in the oral cavity, Hematologic/Lymphatic - No cervical, clavicular, or axillary adenopathy, Respiratory - Lungs are clear with good air movement bilaterally, Cardiovascular - Heart rhythm is regular. There is a II/ systolic murmur. There is no gallop or rub noted, Abdomen - Mildly distended and tympanic. Liver and spleen are not enlarged. There is no abdominal mass or ascites noted and there is no inguinal adenopathy, Extremities - There are venous stasis changes in both legs. There is mild lower extremity edema, worse on the right, Neurologic - No focal neurologic deficits noted. Lab/Imaging: Test performed on Jul 28, 2021 08:17 Sodium 136 mmol/L Potassium 4.2 mmol/L Chloride 96 mmol/L CO2 28 mmol/L Anion Gap 16.2 BUN 6 mg/dL Creatinine 0.6 mg/dL Cr Clearance (Est) 106.8200 mL/min Glucose 93 mg/dL Osmolality - Calculated 279 mOsm/kg Calcium 9.2 mg/dL Protein, Total 7.6 g/dL Albumin 4.4 g/dL Globulin 3.2 g/dL Bilirubin, Total 0.9 mg/dL ALT (SGPT) 22 U/L AST (SGOT) 45 U/L Alkaline Phosphatase 107 IU/L WBC 3.1 10 3/uL RBC 3.73 10 6/uL HGB 13.1 g/dL HCT 38.7 % MCV 103.8 fl MCH 35.1 pg MCHC 33.9 g/dL RDW 12.8 % Platelet Count 123 10 3/cmm MPV 10.5 fL Neutrophils 1.41 10 3/uL Lymphocytes 1.0 10 3/uL Monocytes 0.4 10 3/uL Eosinophils 0.2 10 3/uL Basophils 0.0 10 3/uL Neutrophil % 45.4 % Lymphocyte % 32.8 % Monocyte % 14.1 % Eosinophil % 6.1 % Basophils % 1.0 % NRBC % 0 % CEA 3.9 ng/mL Problem List: 1. 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 He underwent laparoscopic subtotal colectomy (terminal ileum through the ascending colon) on 07/02/2016. 2. He has mild pancytopenia, but that does appear to be chronic. 3. Hypertension. 4. Hyperlipidemia. 5. He underwent porcine aortic valve replacement in 2011. 6. He has chronic atrial fibrillation. 7. He also has GERD and history of peptic ulcer disease. In addition, there was evidence of Lepe's esophagus on his EGD in January 2016. 8. He has nicotine dependence (chewing tobacco). Problems Addressed with this Encounter and Plan: 1. 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 He had iron deficiency anemia at initial presentation. He underwent laparoscopic subtotal colectomy (terminal ileum through the ascending colon) on 07/02/2016. He declined adjuvant chemotherapy. He has been monitored on observation/expectant management. He has had somewhat limited follow-up, as he refused to have further CT scans following the surveillance study in June 2018. He also refused to have surveillance colonoscopy. His clinical status, though, has remained stable. He has had some ongoing issues associated with lower extremity venous stasis and edema, but there has been no evidence of recurrence of his colon cancer. He is now 5 years out from surgery. I will plan to see him again only as needed. 2. He has mild pancytopenia. A specific cause has not been determined, but it appears to be chronic, and his blood counts have remained stable. Signed By: Mayo Atwood M.D. <<Signature on File>>
== END 2021-08-04 06:05 | disposition home or self-care (01) ==
LOC: ONCMED 06:04
PROVIDERS: PCP Family Medicine; Visit Provider Internal Medicine Medical Oncology
DX: Z08 Encounter for follow-up examination after completed treatment for malignant neoplasm (principal); Z85.038 Personal history of other malignant neoplasm of large intestine; D61.818 Other pancytopenia; Z79.82 Long term (current) use of aspirin; Z79.899 Other long term (current) drug therapy
CPT/HCPCS: G0463

== ENCOUNTER 2021-08-28 07:53 | Outpatient (CLI) | payer MEDICARE, SELFPAY ==
--- NOTE | 2021-08-28 08:00 | CT_ITS ---
WS: [id number] CTA THORACIC TECHNIQUE: Contrast enhanced CTA of the thoracic aorta with coronal and sagittal reformatted images a nd maximum intensity projection (MIP) images. CLINICAL INFORMATION: thoracic aneurysm COMPARISON: CTA chest 2019 DLP: 932.[address] scans at [facility] use at least one of these dose optimization techniques: automated e xposure control; mA and/or kV adjustment per patient size (includes targeted exams where dose is matc hed to clinical indication); or iterative reconstruction. FINDINGS: Dilatation of the aortic root with ascending thoracic aorta measuring 4.4 CM. This is unchanged from July 08, 2020 by my measurements. No outside report available. Normal caliber descending thoracic aorta. Celiac and SMA are patent with moderate calcification at th e SMA origin. Adrenal glands are normal. Small esophageal hiatal hernia. Cardiomegaly. Coronary calcification. Ster notomy with CABG. Moderate thoracic kyphosis with ankylosis. No mediastinal or hilar lymphadenopathy. Subsegmental atelectasis in the lung bases. No focal pneumonia or pleural fluid. Lungs are well aera haley. CT/CT angio chest 21999 IMPRESSION: 1. Dilatation of the aortic root with descending thoracic aortic aneurysm nicholas uring 4.4 cm unchanged. 2. Cardiomegaly with sternotomy and coronary calcification. 3. Small esophageal hiatal hernia. 4. Both lungs are well aerated. No acute pulmonary infiltrates. 5. Moderate thoracic kyphosis with ankylosis.
[2021-08-28] MEDS: iohexol 350 mg/mL 100 mL Btl IV (08:39)
== END 2021-08-28 07:54 | disposition home or self-care (01) ==
PROVIDERS: PCP Family Medicine; Visit Provider Thoracic Surgery (Cardiothoracic Vascular Surgery)
DX: I71.2 Thoracic aortic aneurysm, without rupture (principal); I51.7 Cardiomegaly; I25.10 Atherosclerotic heart disease of native coronary artery without angina pectoris; K44.9 Diaphragmatic hernia without obstruction or gangrene; M40.204 Unspecified kyphosis, thoracic region; M43.24 Fusion of spine, thoracic region
CPT/HCPCS: 71275; Q9967

== ENCOUNTER → 2022-03-30 09:14 | Outpatient (BNVA) | payer MEDICARE, SELFPAY | PROVIDERS: PCP Family Medicine; Visit Provider Internal Medicine | DX: I48.91 Unspecified atrial fibrillation (principal); I87.8 Other specified disorders of veins; Z95.2 Presence of prosthetic heart valve | CPT/HCPCS: 99214 ==

== ENCOUNTER 2022-05-27 12:03 | Inpatient (IN) | payer MEDICARE, SELFPAY ==
[2022-05-27 12:58] VITALS: BP 169/79; PULSE 53; RESP 16; TEMP 36.7; O2SAT 95
--- NOTE | 2022-05-27 16:28 | ED_ITS ---
HPI - Fall General: Chief Complaint: Fall Stated Complaint: BACK PAIN Time Seen by Provider: 05[facility]27/22 16:05 [facility]: Medical History Aortic stenosis Ascending aortic aneurysm Atrial fibrillation Colon cancer Hypothyroidism Prostatic hypertrophy Pulmonary HTN Venous stasis Surgical History S/P AVR (aortic valve replacement) Bioprosthesis Family History Mother Cancer Father CAD (coronary artery disease) Myocardial infarction Brother Diabetes Social History Smoking and tobacco status: never smoked Alcohol intake: current Alcohol intake frequency: 3 or more drinks per day Alcohol type: beer and hard liquor Household members: spouse Marital status: Course Vital Signs: Vital signs: Vital Signs Temperature 98.0 F 05/27/22 12:58 Pulse Rate 53 L 05/27/22 12:58 Respiratory Rate 16 05/27/22 12:58 Blood Pressure 169/79 05/27/22 12:58 Pulse Oximetry 95 05/27/22 12:58 Discharge Plan Discharge Condition: Stable Prescriptions: No Action omega-3 fatty acids [Fish Oil Concentrate] 1,000 mg capsule 1,000 mg PO BID 0RF aspirin 325 mg tablet 325 mg PO DAILY 0RF tamsulosin 0.4 mg capsule 0.4 mg PO DAILY Qty: 90 2RF potassium chloride [Klor-Con M20] 20 mEq tablet,ER particles/crystals 20 meq PO DAILY Qty: 90 3RF furosemide 40 mg tablet 40 mg PO DAILY Qty: 90 3RF doxazosin 4 mg tablet 4 mg PO DAILY 90 Days Qty: 90 3RF metoprolol tartrate 25 mg tablet 25 mg PO BID Qty: 180 3RF pantoprazole 40 mg tablet,delayed release (DR/EC) 40 mg PO DAILY 0RF Xanax 0.5 mg Tablet 0.5 mg PO DAILY PRN (Reason: Anxiety) 0RF levothyroxine 125 mcg tablet 125 mcg PO DAILY 0RF Referrals: Sky Ramos [Primary Care Provider] - Coding Level of Care Code ED Cushion Assembler for Chg Fwd
--- NOTE | 2022-05-27 16:29 | ECG_ITS ---
[facility] Test Date: 2022-05-27 Pat Name: Lawson Castaneda Department: Room: Gender: Male [employer]: : 1940 Requested By: Ingrid Byers Order Number: [id number] Weston MD: Ponce Blanchard M.D. Measurements Intervals [place] Rate: 60 P: MA: QRS: 83 QRSD: 162 T: 42 QT: 450 QTc: 453 Interpretive Statements ATRIAL FIBRILLATION RIGHT BUNDLE BRANCH BLOCK [120+ ms QRS DURATION, UPRIGHT V1, 40+ ms S IN I/aVL/V4/V5/V6] Compared to ECG 05/04/2016 05:09:16 Sinus bradycardia no longer present First degree AV block no longer present Electronically Signed On 05-28-2022 17:35:07 CDT by Ponce Blanchard M.D. [email or web address]
--- NOTE | 2022-05-27 16:47 | PC.PHAR ---
pt unable to verify medications - verified by ext med history; [facility] - Xanax 0.5mg once daily PRN Anxiety added to home med list filled on 04/09/22 x 90 days
--- NOTE | 2022-05-27 17:11 | ED_ITS ---
HPI - General Adult General: Chief complaint: Fall Stated complaint: BACK PAIN Time Seen by Provider: 05/27/22 16:05 History of Present Illness: Patient is an 81-year-old male with a history of hypothyroidism, hypertension, atrial fibrillation not on anticoagulation, aortic aneurysm, pulmonary hypertension, AVR who presents the emergency room today for concerns of altered mental status after he was seen and evaluated 2 days ago was at [facility] from [facility]. Patient tells me that he had a CT scan that was done at that point time. Per patient's , she cannot take care of him at home. Patient has become increasingly more confused in the last few days. Patient was found aimlessly driving on streets. 2 days, patient was admitted to [facility] awaiting placement. However patient left AMA at [place]. He denies nauesea/vomiting, fever/chill, chest pain, shortness of breath, abdominal pain, dysuria/hematuria/polyuria, diarrhea/melena/hematochez ia. Onset:3 weeks Duration: ongoing Location: home Severity:moderate Associated symptoms: Deny chest pain, dyspnea, nausea, rash, palpitations or vomiting Review of Systems Const: Denies: fever(s) or chills Eyes: Denies: change in vision ENMT: Denies: mouth pain Card: Denies: chest pain or palpitations Resp: Denies: dyspnea or non-productive cough GI: Denies: abdominal pain, nausea, vomiting or diarrhea : Denies: dysuria Musc: Denies: extremity pain Skin/Breast: Denies: rash or new lesions Neuro: Reports: other (AMS); Denies: weakness in extremities Psych: Reports: other (Normal mood) Hung/Lymph: Denies: easy bruising PFSH ED PFSH: Medical History Aortic stenosis Ascending aortic aneurysm Atrial fibrillation Colon cancer Hypothyroidism Prostatic hypertrophy Pulmonary HTN Venous stasis Surgical History S/P AVR (aortic valve replacement) Bioprosthesis Family History Mother Cancer Father CAD (coronary artery disease) Myocardial infarction Brother Diabetes Social History Smoking and tobacco status: never smoked Alcohol intake: current Alcohol intake frequency: 3 or more drinks per day [place] type: beer and hard liquor Household members: spouse Marital status: Physical Exam Const: COMMON NORMALS: alert HENMT: COMMON NORMALS: atraumatic HEAD & SCALP: atraumatic MOUTH: moist mucous membranes not abnormal Eye: COMMON NORMALS: EOMs intact bilaterally and conjunctivae normal CONJUNCTIVA: Yes conjunctivae normal Neck/C-Spine: COMMON NORMALS: full ROM and supple Resp: COMMON NORMALS: normal respiratory effort and clear to auscultation bilaterally AUSCULTATION: clear to auscultation bilaterally Cardio: COMMON NORMALS: regular rate RATE: regular rate GI: COMMON NORMALS: Soft to palpation and non-tender PALPATION: Yes Soft to palpation OTHER: No focal TTP. NO guarding rebound, guarding, rigidity. No CVA tenderness to percussion. Neg Pérez/Neg McBurney's point tenderness, no suprabupic tenderness to palpation. Extremity: COMMON NORMALS: full ROM Neuro: SENSORIUM/ORIENTATION: Yes alert MOTOR EXAM: No Abnormal motor strength present and Other motor observations present (no focal motor deficits) OTHER: AAOx2 with mild confusion, moving all extremities, cranial nerves II to XII grossly intact Psych: COMMON NORMALS: speech normal SPEECH: Yes normal speech MOOD & AFFECT: Yes euthymic mood Course Vital Signs: Vital signs: Vital Signs Temperature 98.0 F 05/27/22 12:58 Pulse Rate 53 L 05/27/22 12:58 Respiratory Rate 16 05/27/22 12:58 Blood Pressure 169/79 05/27/22 12:58 Pulse Oximetry 95 05/27/22 12:58 [facility] - General Adult Medical Decision Making Patient is an 81-year-old male with a history of hypothyroidism, hypertension, atrial fibrillation not on anticoagulation, aortic aneurysm, pulmonary hypertension, AVR who presents the emergency room today for concerns for altered mental status. On physical dam, patient is AAO x2, moving all extremity, with no focal neurological deficits. Lab work-up largely within normal limit. UA pending. CT head negative for any acute findings. I discussed case with patient's who would like patient to be placed in she tells me that she is not able to take care of him. Patient has been noted to be driving aimlessly on the road in the last few days. Patient's is concerned about his safety and tells me she cannot take care of him at home. I discussed case with Dr. Garrett who recommend observation and placement at care home. Disposition: observation Lab Data : 05/27/22 17:20 05/27/22 17:20 Laboratory Results WBC 6.7 10^3/uL (4.0-10.0) 05/27/22 17:20 RBC 3.29 10^6/uL (4.1-5.3) L 05/27/22 17:20 Hgb 11.3 g/dL (11.7-16.6) L 05/27/22 17:20 Hct 32.6 % (42.0-52.0) L 05/27/22 17:20 MCV 99.1 fl (80-94) H 05/27/22 17:20 MCH 34.3 pg (28.0-34.0) H 05/27/22 17:20 MCHC 34.7 g/dL (30.0-36.0) 05/27/22 17:20 RDW 13.5 % (12.1-15.1) 05/27/22 17:20 Plt Count 129 10^3/cmm (130-400) L 05/27/22 17:20 MPV 10.2 fL (7.4-10.4) 05/27/22 17:20 Neut % (Auto) 76.7 % 05/27/22 17:20 Lymph % (Auto) 9.5 % 05/27/22 17:20 [place] % (Auto) 12.5 % 05/27/22 17:20 Eos % (Auto) 0.6 % 05/27/22 17:20 Baso % (Auto) 0.3 % 05/27/22 17:20 Neut # (Auto) 5.15 10^3/uL (1.8-7.7) 05/27/22 17:20 Lymph # (Auto) 0.6 10^3/uL (0.8-4.8) L 05/27/22 17:20 [place] # (Auto) 0.8 10^3/uL (0.2-0.9) 05/27/22 17:20 Eos # (Auto) 0.0 10^3/uL (0.0-0.8) 05/27/22 17:20 Baso # (Auto) 0.0 10^3/uL (0.0-0.1) 05/27/22 17:20 Nucleated RBC % (auto) 0 % 05/27/22 17:20 Nucleated RBCs # 0.0 /100WBC 05/27/22 17:20 Sodium 128 mmol/L (136-145) L 05/27/22 17:20 Potassium 4.3 mmol/L (3.5-5.1) 05/27/22 17:20 Chloride 91 mmol/L (98-107) L 05/27/22 17:20 Carbon Dioxide 21 mmol/L (22-29) L 05/27/22 17:20 Anion Gap 20.3 (5-19) H 05/27/22 17:20 BUN 11 mg/dL (8-23) 05/27/22 17:20 Creatinine 0.8 mg/dL (0.7-1.2) 05/27/22 17:20 GFR Calculation Not Reportable 05/27/22 17:20 Glucose 89 mg/dL (65-115) 05/27/22 17:20 Calculated Osmolality 265 mOsm/kg (285-295) L 05/27/22 17:20 Calcium 9.1 mg/dL (8.5-10.5) 05/27/22 17:20 Total Bilirubin 1.5 mg/dL (0.15-1.2) H 05/27/22 17:20 AST 128 U/L (0-40) H 05/27/22 17:20 ALT 42 U/L (0-41) H 05/27/22 17:20 Alkaline Phosphatase 137 IU/L (40-130) H 05/27/22 17:20 Ammonia 11 umol/L (16-60) L 05/27/22 17:20 Troponin T Baseline 26 ng/L (0-15) H 05/27/22 17:20 Total Protein 6.9 g/dL (6.6-8.7) 05/27/22 17:20 Albumin 3.9 g/dL (3.5-5.2) 05/27/22 17:20 Globulin 3.0 g/dL (1.3-4.6) 05/27/22 17:20 Lipase 27 U/L (13-60) 05/27/22 17:20 TSH 3.30 uIU/mL (0.27-4.20) 05/27/22 17:20 Salicylates < 0.3 mg/dL (3-10) L 05/27/22 17:20 Acetaminophen < 5.0 ug/mL (10-30) L 05/27/22 17:20 Discharge Plan Discharge Patient Disposition: Admitted As Inpatient Clinical Impression: Altered mental status Condition: Stable Discharge Diet: Advance as tolerated Discharge Activity: Increase activity as tolerated Coding Level of Care Code ED Trans Router for Sophia Fwd Exam Comprehensive
[2022-05-27 17:35] LABS: Basophils % 0.3 %; Eosinophils % 0.6 %; Hematocrit 32.6 % (42.0-52.0); Hemoglobin 11.3 g/dL (11.7-16.6); Lymphocytes # 0.6 10^3/uL (0.8-4.8); Lymphocytes % 9.5 %; Mean Corpuscular HGB Conc 34.7 g/dL (30.0-36.0); Mean Corpuscular Hemoglobin 34.3 pg (28.0-34.0); Mean Corpuscular Volume 99.1 fl (80-94); Mean Platelet Volume 10.2 fL (7.4-10.4); Monocytes # 0.8 10^3/uL (0.2-0.9); Monocytes % 12.5 %; Neutrophils # 5.15 10^3/uL (1.8-7.7); Neutrophils % 76.7 %; Nucleated Red Blood Cells % 0 %; Platelet Count 129 10^3/cmm (130-400); Red Blood Count 3.29 10^6/uL (4.1-5.3); Red Cell Distribution Width 13.5 % (12.1-15.1); White Blood Count 6.7 10^3/uL (4.0-10.0)
--- NOTE | 2022-05-27 18:02 | CTR_ITS ---
PROCEDURE INFORMATION: Exam: CT Head Without Contrast Exam date and time: 05/27/2022 6:30 PM Age: 81 years old Clinical indication: Altered mental status/memory loss; Confusion or disorientation; Patient HX: Confusion. Reported history of dementia. TECHNIQUE: Imaging protocol: Computed tomography of the head without contrast. Radiation optimization: All CT scans at this facility use at least one of these dose optimization techniques: automated exposure control; mA and/or kV adjustment per patient size (includes targeted exams where dose is matched to clinical indication); or iterative reconstruction. COMPARISON: No relevant prior studies available. RADIATION DOSE METRICS: Total DLP (mGy-cm): 683.96 FINDINGS: Brain: There is diffuse cerebral atrophy and chronic microvascular white matter disease. There is no acute intracranial hemorrhage. Cerebral ventricles: There is moderate ex vacuo dilation of the lateral ventricles. Basal cisterns are unremarkable. Paranasal sinuses: Right frontal sinus is opacified. Paranasal sinuses otherwise clear. Mastoid air cells: The mastoid air cells are clear. Bones/joints: The calvarium is intact. Soft tissues: The visible extracranial soft tissues are unremarkable. CT/CT head wo con* [id number] IMPRESSION: 1. No acute intracranial abnormality. 2. Opacification of the right frontal sinus. Probable chronic sinusitis.
[2022-05-27 18:05] LABS: Ammonia 11 umol/L (16-60)
[2022-05-27 18:10] LABS: Troponin(5th) Baseline 26 ng/L (0-15)
[2022-05-27 18:17] LABS: Alanine Aminotransferase 42 U/L (0-41); Albumin Level 3.9 g/dL (3.5-5.2); Alkaline Phosphatase 137 IU/L (40-130); Anion Gap 20.3 (5-19); Aspartate Amino Transferase 128 U/L (0-40); Blood Urea Nitrogen 11 mg/dL (8-23); Calcium 9.1 mg/dL (8.5-10.5); Carbon Dioxide 21 mmol/L (22-29); Chloride 91 mmol/L (98-107); Glucose 89 mg/dL (65-115); Lipase 27 U/L (13-60); Osmolality Calculated 265 mOsm/kg (285-295); Potassium 4.3 mmol/L (3.5-5.1); Sodium 128 mmol/L (136-145); Total Bilirubin 1.5 mg/dL (0.15-1.2); Total Protein 6.9 g/dL (6.6-8.7)
[2022-05-27 18:22] LABS: Acetaminophen < 5.0 ug/mL (10-30); Salicylate < 0.3 mg/dL (3-10)
--- NOTE | 2022-05-27 18:29 | ECG_ITS ---
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 Measurements Intervals [place] Rate: 78 P: MA: QRS: 92 QRSD: 146 T: 19 QT: 385 QTc: 441 Interpretive Statements ATRIAL FIBRILLATION RIGHT BUNDLE BRANCH BLOCK [120+ ms QRS DURATION, UPRIGHT V1, 40+ ms S IN I/aVL/V4/V5/V6] Compared to ECG 05/27/2022 16:54:31 Atrial flutter no longer present Electronically Signed On 05-28-2022 17:37:24 CDT by Ponce Blanchard M.D. [id number]
--- NOTE | 2022-05-27 20:00 | PM.HP ---
Providers/Chief Complaint Primary Care Provider: Sky Ramos Chief Complaint: BACK PAIN History of Present Illness 81-year-old gentleman with alcohol use disorder, history of colon cancer treated with palliative treatment, subsequent to monitoring, but with poor adherence with follow-up, bioprosthetic aortic valve, atrial fibrillation, pulmonary hypertension, hyponatremia, GERD, gait instability, senile debility and dementia, recently admitted at [facility] due to hyponatremia, alcohol intoxication with delirium, dehydration, admitted on 05/26, but was released AGAINST MEDICAL ADVICE after 23 hours of hospitalization, has been confused, per ER report driving around aimlessly, and per his confused and not amenable to taking directions, although did listen to her and called EMS. She states that he otherwise drinks heavily, he has had memory lapses for a while now, before hospitalization at [facility] as well. States that he is unable to take care of himself at home, but able to drive himself to the liquor store to get alcohol. She states she cannot take care of him at home. In ER here currently he tells me nothing is bothering him, when asked if he has recollection from the last several days says that he had fallen and broke his leg, hit his head, was just at [facility] but they fixed it . He says knows where he is, but asked where, states this place , I have been here before . When asked about what the year is tells me I forgot . When asked about his medical problems he tells me nothing major . Says he is doing pretty well, and as to use the phone to call for a ride because I do not have a car here . When asked if he has history of cancer, states no. When asked if he drinks alcohol he says no, tells me he chews tobacco. When asked if he drinks beer, states yes, 3 beers but has not done so in a while. When asked if he drinks whiskey, also says yes at night. Discussed with him regarding hyponatremia, liver primary abnormalities, discussed with him regarding additional work-up and management to which he is agreeable. Discussed recent memory issues. Not long after he asks again about getting home tonight. When reminded about medical problems including persistent metabolic abnormalities, needing additional assessment and management, says but you have done quite a bit today, and everything is good now . Discussed with him again regarding metabolic abnormalities and memory issues. In ER he felt like he needed to pee, but cannot urinate trying to go into the urinal. Review of Systems General: Reports: ROS unobtainable due to mental status Medications/Allergies Home Medications Medication Instructions Recorded Confirmed Last Taken Type aspirin 325 mg tablet 325 mg PO DAILY 01/27/20 05/27/22 Unknown History omega-3 fatty acids 1,000 mg 1,000 mg PO BID 01/27/20 05/27/22 Unknown History capsule (Fish Oil Concentrate) pantoprazole 40 mg tablet,delayed 40 mg PO DAILY 07/22/20 05/27/22 Unknown History release doxazosin 4 mg tablet 4 mg PO DAILY 90 Days #90 tab 03/30/22 05/27/22 Unknown Rx furosemide 40 mg tablet 40 mg PO DAILY #90 tab 03/30/22 05/27/22 Unknown Rx metoprolol tartrate 25 mg tablet 25 mg PO BID #180 tab 03/30/22 05/27/22 Unknown Rx potassium chloride 20 mEq 20 meq PO DAILY #90 tab 03/30/22 05/27/22 Unknown Rx tablet,extended release(part/cryst) (Klor-Con M) tamsulosin 0.4 mg capsule 0.4 mg PO DAILY #90 cap 03/30/22 05/27/22 Unknown Rx alprazolam 0.5 mg tablet (Xanax) 0.5 mg PO DAILY PRN 05/27/22 05/27/22 Unknown History levothyroxine 125 mcg tablet 125 mcg PO DAILY 05/27/22 05/27/22 Unknown History Allergies Allergy/AdvReac Type Severity Reaction Status Date / Time No Known Allergies Allergy Verified 03/30/22 09:37 PFSH Acute PFSH: Medical History (Updated 05/27/22 @ 20:09 by Fredi Caballero MD) Alcoholism Aortic stenosis Ascending aortic aneurysm Atrial fibrillation Colon cancer Hypothyroidism Prostatic hypertrophy Pulmonary HTN Venous stasis Surgical History S/P AVR (aortic valve replacement) Bioprosthesis Family History Mother Cancer Father CAD (coronary artery disease) Myocardial infarction Brother Diabetes Social History (Updated 05/27/22 @ 20:04 by Fredi Caballero MD) Smoking and tobacco status: never smoked Alcohol intake: current Alcohol intake frequency: 3 or more drinks per day Alcohol type: beer and hard liquor Alcohol use comment: Per drinks heavily every day. Household members: spouse Marital status: Vitals/I&O/Wt Last Vital Signs Temp 98.0 F 05/27/22 12:58 Pulse 53 L 05/27/22 12:58 Resp 16 05/27/22 12:58 BP 169/79 05/27/22 12:58 Pulse Ox 95 05/27/22 12:58 Weight last 48 hrs Weight 77.111 kg Physical Exam Const: COMMON NORMALS: alert GENERAL APPEARANCE: cooperative ORIENTATION/CONSCIOUSNESS: Yes awake and Yes oriented to person; not oriented to place and not oriented to time HENMT: COMMON NORMALS: normocephalic, EAC's normal, Normal external nose present and moist oral mucous membranes HEAD & SCALP: normocephalic NOSE: Normal external nose present EXTERNAL AUDITORY CANAL: EAC's normal OTHER: Bruise with some petechial ecchymosis over right side forehead. Neck/C-Spine: COMMON NORMALS: no meningeal signs Chest: CHEST: Yes Symmetrical chest wall rise Resp: COMMON NORMALS: clear to auscultation bilaterally AUSCULTATION: clear to auscultation bilaterally Cardio: COMMON NORMALS: regular rate, regular rhythm and No murmurs present (Cardio) RHYTHM: abnormal rhythm irregularly irregular GI: COMMON NORMALS: Normal to inspection, nondistended, normoactive bowel sounds present, Soft to palpation and non-tender PALPATION: Yes Soft to palpation Extremity: COMMON NORMALS: no pedal edema OTHER: Bilateral compression wraps and hose. 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 Discussed with his . He states that he drinks quite heavily, and otherwise functional decline, with frequent memory lapses, but has been able to drive himself to the hospital, although recently he been more confused. Per ER report driving aimlessly around town. At the current time he is not able to make safe decisions regarding his care or decision to leave the hospital. Will request one-to-one sitter as he is at risk of wandering or leaving in his confused state, with risk to himself and others if he leaves the hospital including getting lost or injured, or driving again with risk of MVA. Thiamine, folic acid, and VT replacement. Benzodiazepines with CICO protocol for possibility of withdrawal. PT, OT assessment Case management consultation. Status: Acute (2) Hyponatremia: Received IV hydration at [facility]. Here sodium is 128. Continue with NaCl tablets. Regular diet. Monitor sodium. Possible progression to liver cirrhosis. Assess hepatobiliary ultrasound. INR. TSH is normal. Status: Acute (3) Cholestasis: Possible progression to liver cirrhosis. Possible alcoholic hepatitis. Will check INR to allow Madrey discriminant calculation. Additional assessment by hepatobiliary ultrasound. No abdominal pain. He is afebrile, without leukocytosis or sign of infection. Status: Acute (4) Alcoholic hepatitis: With transaminitis into the 1 pattern. Hyperbilirubinemia, alk phos elevation. Per his drinks heavily. Check EtOH. Check INR to allow for calculation of MDF. Status: Acute (5) Alcoholism: With concern for progression to Warnicke encephalopathy. Status: Acute (6) Atrial fibrillation: Continue aspirin. Metoprolol. Status: Acute (7) S/P AVR (aortic valve replacement): Continue aspirin. Status: Acute (8) Hypothyroidism: TSH is normal. Levothyroxine. Status: Acute Plan Right forehead contusion: Denies pain. No acute intracranial abnormality on CT head. Opacification of the right frontal sinus. Probable chronic sinusitis. Lower extremity chronic venous stasis: Compression wraps bilateral lower extremities. He apparently goes to wound care clinic where these are managed for him. We do not have time at this time to unwrap them to more closely examine, please do so at next opportunity. History of colon cancer, previously on palliative treatment, then with just monitoring due to refusal of follow-up surveillance colonoscopy. BPH GERD Senile debility Gait instability Attestations Medical Necessity Statement*: Admission of over 2 midnights is anticipated for assessment of management of encephalopathy, acute on chronic versus progression of Warnicke encephalopathy, possible alcohol withdrawal, hyponatremia, alcoholic hepatitis. Coding Level of Care Code Acute Clerk Carrier for g Fwd Diagnoses Atrial fibrillation I48.91 S/P AVR (aortic valve replacement) Z95.2 Hypothyroidism E03.9 Wernickes encephalopathy E51.2 Hyponatremia E87.1 Cholestasis K83.1 Alcoholic hepatitis K70.10 Alcoholism F10.20
[2022-05-27 20:37] LABS: Bilirubin Urine 1+ (Negative); Blood Urine 2+ (Negative); Glucose Urine UA Norm (Normal); Ketones Urine 2+ (Negative); Leukocyte Esterase Urine Negative (Negative); Nitrate Urine Negative (Negative); Protein Urine Neg (Negative); Specific Gravity, Urine 1.015 (1.005-1.030); Urine Appearance Clear (CLEAR); Urine Color Yellow (Yellow); Urobilinogen Urine 1 mg/dL (Negative); pH Urine 5 (5-7)
[2022-05-27 20:38] LABS: Add Urine Microscopic? YES
[2022-05-27 20:57] VITALS: BP 176/83; PULSE 79; RESP 18; TEMP 36.7; O2SAT 99
--- NOTE | 2022-05-27 20:57 | USR_ITS ---
PROCEDURE INFORMATION: Exam: US Abdomen, Limited; Right Upper Quadrant Exam date and time: 05/27/2022 9:24 PM Age: 81 years old Clinical indication: Abnormal findings; Abnormal lab test; Abnormal function test of other organs/systems; Additional info: Hepatobiliary - abn labs. HX colon cancer TECHNIQUE: Imaging protocol: Real time ultrasound of the abdomen with image documentation. Limited exam focused on the right upper quadrant. COMPARISON: US Abdomen* [id number] 01/03/2016 7:34 AM FINDINGS: Liver: The liver is unremarkable. Gallbladder: The gallbladder is decompressed, preventing meaningful evaluation of wall thickness. No gallstones. Sonographic Pérez sign is negative. Biliary ducts: The common bile duct is nondilated measuring 5 mm. Pancreas: The pancreas is unremarkable. Right kidney: The right kidney is unremarkable. Aorta: The upper abdominal aorta is unremarkable. Inferior vena cava: The IVC is unremarkable. Portal venous: The portal vein is patent. US/US abdomen limited [id number] IMPRESSION: 1. No pathologic findings. 2. Decompressed gallbladder. No sign of cholecystitis.
[2022-05-27 21:00] LABS: Troponin 5 2HR 24.57 ng/L (0-15)
[2022-05-27 21:04] LABS: Alcohol Level < 10 mg/dL (0-10); Troponin 5 2HR Delta -1.43 ABS# (0-10)
[2022-05-27 21:08] LABS: Add Urine Culture? No; Amorphous Sediment Urine TRACE /hpf; Bacteria Urine TRACE /hpf; Mucus Urine 2+ /hpf; RBC Urine 0-4 /hpf (0-2); Squamous Epithelial Cell Urine 0-4 /hpf (0-5); WBC Urine 0-4 /hpf (0-5)
[2022-05-27 21:12] LABS: INR 1.13 (0.8-1.2)
[2022-05-27 21:20] VITALS: BMI 26.6
[2022-05-27 21:34] VITALS: BP 152/80; PULSE 101; RESP 18; TEMP 36.7; O2SAT 94
[2022-05-27] MEDS: nicotine 21 mg Patch 1 PATCH TRANSDERMA (22:03)
[2022-05-28 04:00] VITALS: BP 174/77; PULSE 91; RESP 19; TEMP 36.9; O2SAT 96
[2022-05-28 05:37] LABS: Basophils % 0.4 %; Eosinophils # 0.1 10^3/uL (0.0-0.8); Eosinophils % 0.9 %; Hemoglobin 10.9 g/dL (11.7-16.6); Lymphocytes # 0.4 10^3/uL (0.8-4.8); Lymphocytes % 5.5 %; Mean Corpuscular HGB Conc 36.3 g/dL (30.0-36.0); Mean Corpuscular Hemoglobin 34.9 pg (28.0-34.0); Mean Corpuscular Volume 96.2 fl (80-94); Mean Platelet Volume 10.2 fL (7.4-10.4); Monocytes # 0.8 10^3/uL (0.2-0.9); Monocytes % 9.9 %; Neutrophils % 82.7 %; Nucleated Red Blood Cells % 0 %; Platelet Count 130 10^3/cmm (130-400); Red Blood Count 3.12 10^6/uL (4.1-5.3); Red Cell Distribution Width 13.3 % (12.1-15.1); White Blood Count 7.9 10^3/uL (4.0-10.0)
[2022-05-28 06:02] LABS: Alanine Aminotransferase 39 U/L (0-41); Albumin Level 3.3 g/dL (3.5-5.2); Alkaline Phosphatase 123 IU/L (40-130); Anion Gap 25.4 (5-19); Aspartate Amino Transferase 110 U/L (0-40); Blood Urea Nitrogen 8 mg/dL (8-23); Calcium 8.8 mg/dL (8.5-10.5); Carbon Dioxide 16 mmol/L (22-29); Chloride 94 mmol/L (98-107); Globulin 2.9 g/dL (1.3-4.6); Glucose 79 mg/dL (65-115); Magnesium 1.7 mg/dL (1.7-2.3); Osmolality Calculated 269 mOsm/kg (285-295); Potassium 4.4 mmol/L (3.5-5.1); Sodium 131 mmol/L (136-145); Total Bilirubin 1.2 mg/dL (0.15-1.2); Total Protein 6.2 g/dL (6.6-8.7)
[2022-05-28 08:00] VITALS: BP 177/81; PULSE 84; RESP 14; TEMP 37.5; O2SAT 98
[2022-05-28] MEDS: levothyroxine 125 mcg Tablet PO (08:49)
[2022-05-28] MEDS: folic acid 1 mg Tablet PO (08:49)
[2022-05-28] MEDS: thiamine 100 mg Tablet PO (08:49)
[2022-05-28] MEDS: pantoprazole DR 40 mg Tablet PO (08:49)
[2022-05-28] MEDS: aspirin 325 mg Tablet PO (08:49)
[2022-05-28] MEDS: sodium chloride 1 gm Tablet PO ×2 (08:49→17:23)
[2022-05-28] MEDS: nicotine 21 mg Patch 1 PATCH TRANSDERMA (08:49)
[2022-05-28] MEDS: tamsulosin 0.4 mg Capsule PO (08:49)
--- NOTE | 2022-05-28 10:36 | PC.CHAP ---
Pastoral Care Encounter/Spiritual Assessment Type of Contact [] Declined digital asset coordinator visit [] Patient/Family/Request visit [] Outpatient visit [] Follow-up visit [] Physician referral [] Code/Alert [x] Routine visit [] Staff referral [] Actively dying [] Patient sleeping [] Family support [] [] Out of room [] Palliative care [] [x] Receiving care in room [] Pre-surgical visit [] Trauma [] Long length of stay [] ICU visit [] Other: Relational/Emotional Strength [] Patient feels connected with others/family/visitors/staff [] Distress [] Loneliness/isolation [] Abandonment Spirituality of Patient [] Person of Joyce [] Attends Denominational of their Joyce [] Believes in Prayer [] Reads Bible or Nondenominational materials [] There are Spiritual issues to be addressed Building Insulation Supervisor Interventions [] Prayer [] Active listening [] Non-anxious presence [] Spiritual/emotional support [] Crisis/trauma care [] Spiritual counseling [] Bereavement support [] Provided bereavement packet [] Provided Bible/devotional materials [] Provided toy/stuffed animal, coloring book to patient or family member [] Provided Communion [] Anointing/[place] [] Salvation [] Completed spiritual assessment [] Other: Impact on Illness or Injury [] Angry [] Fearful [] Anxious [] Often cries [] Exhaustion [] Unable to work [] Unable to attend hindu [] Unable to walk/stand [] Unable to read [] Unable to drive [] Unable to eat/drink [] Unable to sleep [] Unable to be with family [] Patient intubated [] Other: Summary Time spent with patient
[2022-05-28 12:00] VITALS: BP 170/81; PULSE 83; RESP 17; TEMP 36.3; O2SAT 97
[2022-05-28] MEDS: haloperidol inj 5 mg/mL INJ 1 mL 1 MG IVP (12:28)
--- NOTE | 2022-05-28 12:30 | PC.NURSE ---
Patient being uncooperative and more combative, refusing to get in bed and refusing medications. Remains disoriented and confused and impulsive. Continues to try and pull out catheter and demanding to go home. Physician notified and orders placed will revaluate again in half hour.
[2022-05-28] MEDS: LORazepam 2 mg/mL INJ 1 mL IVP ×3 (12:38→23:26)
--- NOTE | 2022-05-28 14:07 | P.PN_ITS ---
Subjective Subjective: Patient was seen this morning, he sitting up to the side of the bed, in a chair, he keeps pulling on his Asencio catheter, telling me that he wants it out, he tells me he is absolutely good to go home today, he is alert to person, not to place, not to time, he can follow commands, he has no complaints, he tells me that he will not drink alcohol, he has no pain complaints, no chest pain, no shortness of breath Vitals/I&O/Wt Last Vital Signs Temp 97.4 F L 05/28/22 12:00 Pulse 83 05/28/22 12:00 Resp 17 05/28/22 12:00 BP 170/81 05/28/22 12:00 Pulse Ox 97 05/28/22 12:00 05/27/22 05/28/22 05/28/22 22:59 06:59 14:59 Intake Total 120 / 120 240 / 240 Output Total 225 / 225 Balance 120 / 120 -225 / -105 240 / 240 Weight last 48 hrs Weight 77.111 kg Weight 77.111 kg Physical Exam Const: COMMON NORMALS: no acute distress OTHER: Alert to person, not to place, not to time, requires frequent redirection, is forgetful Resp: COMMON NORMALS: normal respiratory effort, No retractions, No use of accessory muscles and clear to auscultation bilaterally AUSCULTATION: clear to auscultation bilaterally Cardio: COMMON NORMALS: regular rate, regular rhythm, S1 normal heart sound present and S2 normal heart sound present RATE: regular rate RHYTHM: regular rhythm HEART SOUNDS: S1 normal heart sound present and S2 normal heart sound present GI: COMMON NORMALS: Normal to inspection, nondistended, normoactive bowel sounds present, Soft to palpation and non-tender PALPATION: Yes Soft to palpation Extremity: COMMON NORMALS: no pedal edema Urinary Catheter Management: Asencio: Cath Placed During This Visit: yes Reason for Continuing Indwelling Catheter: Acute Urinary Retention or Obstruction Urinary Catheter Date of Insertion: 05/27/22 Urinary Catheter Time of Insertion: 21:00 Data : 05/28/22 04:49 05/28/22 04:49 A&P Assessment and plan (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 Discussed with his . He states that he drinks quite heavily, and otherwise functional decline, with frequent memory lapses, b ut has been able to drive himself to the hospital, although recently he been more confused. Per ER report driving aimlessly around town. At the current time he is not able to make safe decisions regarding his care or decision to leave the hospital. Will request one-to-one sitter as he is at risk of wandering or leaving in his confused state, with risk to himself and others if he leaves the hospital including getting lost or injured, or driving again with risk of MVA. Thiamine, folic acid, and VT replacement. Benzodiazepines with CIVT protocol for possibility of withdrawal. PT, OT assessment Case management consultation. Status: Acute (2) Hyponatremia: Received IV hydration at [facility]. Here sodium is 131. Continue with NaCl tablets. Regular diet. Monitor sodium. Possible progression to liver cirrhosis. Assess hepatobiliary ultrasound. INR. TSH is normal. Status: Acute (3) Cholestasis: Possible progression to liver cirrhosis. Possible alcoholic hepatitis. Will check INR to allow Madrey discriminant calculation. Additional assessment by hepatobiliary ultrasound. No abdominal pain. He is afebrile, without leukocytosis or sign of infection. Status: Acute (4) Alcoholic hepatitis: With transaminitis into the 1 pattern. Hyperbilirubinemia, alk phos elevation. Per his drinks heavily. INR within normal limits Status: Acute (5) Alcoholism: With concern for progression to Warnicke encephalopathy. Status: Acute (6) Atrial fibrillation: Continue aspirin. Metoprolol. Status: Acute (7) S/P AVR (aortic valve replacement): Continue aspirin. Status: Acute (8) Hypothyroidism: TSH is normal. Levothyroxine. Status: Acute Plan Right forehead contusion: Denies pain. No acute intracranial abnormality on CT head. Opacification of the right frontal sinus. Probable chronic sinusitis. Lower extremity chronic venous stasis: Compression wraps bilateral lower extremities. He apparently goes to wound care clinic where these are managed for him. We do not have time at this time to unwrap them to more closely examine, please do so at next opportunity. History of colon cancer, previously on palliative treatment, then with just monitoring due to refusal of follow-up surveillance colonoscopy. Hematuria, likely traumatic, Asencio catheter in place, will start continuous bladder irrigation, needs 22 Pashto Asencio catheter, fix Asencio catheter to leg, precautions to avoid traumatic removal BPH GERD Senile debility Gait instability Attestations 2 Medical Necessity Statement*: Patient requires hospitalization for alcohol withdrawal, Warnicke encephalopathy, hematuria Coding Level of Care Code Acute Buying Intern for Chg Fwd Diagnoses Wernickes encephalopathy E51.2 Hyponatremia E87.1 Cholestasis K83.1 Alcoholic hepatitis K70.10 Alcoholism F10.20 Atrial fibrillation I48.91 S/P AVR (aortic valve replacement) Z95.2 Hypothyroidism E03.9
[2022-05-28 15:50] VITALS: BP 178/85; PULSE 73; RESP 16; TEMP 36.6; O2SAT 92
[2022-05-28 15:57] LABS: Hemoglobin 11.1 g/dL (11.7-16.6)
--- NOTE | 2022-05-28 18:10 | PC.NURSE ---
Patient oriented to self, uncooperative and impulsive pulling at light. Continues to require sitter and CIWA. Patient is currently resting. CBI started during shift with manual irrigation frequently and q15min rounding. Patient has very dark bloody hematuria and clots being irrigated. Physician aware. Patient turns self when needed, room clean and clutter free with call light in reach. Willl report to oncoming nurse at shift change at bedside.
[2022-05-28 19:19] LABS: Hematocrit 28.1 % (42.0-52.0); Hemoglobin 9.7 g/dL (11.7-16.6)
[2022-05-28 20:00] VITALS: BP 169/81; PULSE 81; RESP 18; TEMP 37; O2SAT 97
[2022-05-28] MEDS: chlordiazePOXIDE 10 mg Capsule PO (20:57)
[2022-05-29] VITALS (16 sets, daily range): BP systolic 137–181; BP diastolic 60–100; PULSE 62–112; RESP 12–20; TEMP 36.1–37.5; O2SAT 94–100
[2022-05-29] MEDS: metoprolol tartrate 25 mg Tablet PO (01:23)
[2022-05-29 05:00] LABS: Basophils % 0.4 %; Hematocrit 22.3 % (42.0-52.0); Hemoglobin 8.1 g/dL (11.7-16.6); Lymphocytes # 0.5 10^3/uL (0.8-4.8); Lymphocytes % 4.7 %; Mean Corpuscular HGB Conc 36.3 g/dL (30.0-36.0); Mean Corpuscular Hemoglobin 34.8 pg (28.0-34.0); Mean Corpuscular Volume 95.7 fl (80-94); Mean Platelet Volume 10.1 fL (7.4-10.4); Monocytes # 0.8 10^3/uL (0.2-0.9); Monocytes % 7.6 %; Neutrophils # 9.33 10^3/uL (1.8-7.7); Neutrophils % 86.4 %; Nucleated Red Blood Cells % 0 %; Platelet Count 124 10^3/cmm (130-400); Red Blood Count 2.33 10^6/uL (4.1-5.3); Red Cell Distribution Width 13.2 % (12.1-15.1); White Blood Count 10.8 10^3/uL (4.0-10.0)
[2022-05-29 05:05] LABS: INR 1.17 (0.8-1.2)
[2022-05-29 05:16] LABS: Alanine Aminotransferase 34 U/L (0-41); Alkaline Phosphatase 102 IU/L (40-130); Anion Gap 21.6 (5-19); Aspartate Amino Transferase 82 U/L (0-40); Blood Urea Nitrogen 7 mg/dL (8-23); C Reactive Protein 92.8 mg/L (0.0-4.9); Calcium 8.3 mg/dL (8.5-10.5); Carbon Dioxide 19 mmol/L (22-29); Chloride 98 mmol/L (98-107); Globulin 2.7 g/dL (1.3-4.6); Glucose 118 mg/dL (65-115); Magnesium 1.6 mg/dL (1.7-2.3); Osmolality Calculated 277 mOsm/kg (285-295); Phosphorus 3.7 mg/dL (2.5-4.5); Potassium 4.6 mmol/L (3.5-5.1); Sodium 134 mmol/L (136-145); Total Bilirubin 1.2 mg/dL (0.15-1.2); Total Protein 5.7 g/dL (6.6-8.7)
[2022-05-29 05:20] LABS: Creatine Phosphokinase 1174 U/L (39-308)
--- NOTE | 2022-05-29 06:36 | PM.CONSULT ---
Providers/Reason For Consult Consulting Physician/Specialty*: Urology/Carvalho Reason for Consult*: gross hematuria Requesting Physician: Dr. Wiggins Attending Physician: Gene Wiggins MD Primary Care Provider: Sky Ramos History of Present Illness History of Present Illness Lawson Castaneda is a 81 year old male with a history of alcohol abuse and apparently liver dysfunction related to that. Was hospitalized because of progressive debilitation confusion and poor performance at home. See H&P for details regarding that. Patient had a catheter placed upon admission and reportedly had no immediate gross blood. Later he apparently pulled the catheter out and tugged on it and since that time has experienced significant hematuria. Larger catheter replaced, aggressive manual irrigation instituted, and CBI running at a brisk pace was initiated. He has had a corresponding drop in his hemoglobin hematocrit from 11.3 at admission Down to 9.7 last night and 8.1 this morning. Overnight his urine cleared with manual and CBI irrigation has maintained that way this morning. CBI rate has been turned down substantially. He does not appear to be actively bleeding at this point catheter is functioning well. Patient was sedated when I examined him this morning. Given lack of his ability to relate significant medical details I think it is good to be important to work him up for hematuria even though apparently he has not had reports of it previously. Most likely this is related to the catheter trauma. Does have a history of colon cancer and at some point stop allowing CT scans. I did review Dr. Atwood's notes regarding his colon cancer in the past in the record. Also based on his liver function I am concerned about underlying coagulopathy although at this point with the conservative management alone of significant bleeding he is no longer bleeding which is good news. Follow-up: CT scan showed that the balloon was inflated in the bulbar urethra. Bladder was distended. PROCEDURE: Bedside flexible cystoscopy I recommended catheter removal under controlled circumstances with bedside flexible cystoscopy at the same time. Patient was prepped and draped in the usual sterile fashion. Asencio catheter was removed after prepping. 2% lidocaine jelly was gently infused into the urethra and then a flexible cystoscope was advanced into the urethra. As anticipated in the deep bulbar urethra there was a large cavity false passage posteriorly and the true lumen could not be clearly identified. Large amount of blood clot in this position. A significant amount of time was spent trying to look for the true lumen but it was unsuccessful. Recommended taking him to the operating room for suprapubic tube placement if reattempted cystoscopy under more controlled circumstances failed to show the appropriate path into the bladder. I reviewed with the patient's the findings and the recommendations for suprapubic tube placement if I could not find the true lumen. This still would be hazardous given his propensity to pull on tubes. It would unfortunately be necessary though given the condition of his urethra. Likely will be a permanent tube. I explained the benefits and risks. He is clearly not very healthy, anemic, has hepatic dysfunction and multiple other medical problems as outlined in the chart. He is receiving blood transfusion currently. She was able to give informed consent. She asked appropriate questions and seemed content with my answers. Consent was witnessed by nursing staff and consent form filled out. We will proceed emergently to the operating room tonight for the above cystoscopy suprapubic tube placement Review of Systems Narrative: I have reviewed his prior review of systems. Patient not able to contribute to that currently. Nursing staff test devices varying levels of confusion but apparently when not sedated he is responsive and correctly can recite a lot of details regarding his life but speaking in error on other details. Const: Reports: malaise; Denies: fever(s) or chills Eyes: Denies: eye discharge ENMT: Denies: hoarseness Card: Denies: chest pain or palpitations Resp: Denies: stridor or hemoptysis GI: Denies: nausea or hematemesis : Reports: hematuria; Denies: flank pain Musc: Reports: muscle weakness and decrease in muscle mass; Denies: joint redness Skin/Breast: Denies: skin tenderness or sores Neuro: Reports: confusion, behavioral changes and difficulty communicating thoughts; Denies: seizure-like activity Psych: Reports: anxiety and memory loss Hung/Lymph: Reports: easy bruising All/Imm: Reports: acute wheezing Medications/Allergies Home Medications Medication Instructions Recorded Confirmed Last Taken Type aspirin 325 mg tablet 325 mg PO DAILY 01/27/20 05/27/22 Unknown History omega-3 fatty acids 1,000 mg 1,000 mg PO BID 01/27/20 05/27/22 Unknown History capsule (Fish Oil Concentrate) pantoprazole 40 mg tablet,delayed 40 mg PO DAILY 07/22/20 05/27/22 Unknown History release doxazosin 4 mg tablet 4 mg PO DAILY 90 Days #90 tab 03/30/22 05/27/22 Unknown Rx furosemide 40 mg tablet 40 mg PO DAILY #90 tab 03/30/22 05/27/22 Unknown Rx metoprolol tartrate 25 mg tablet 25 mg PO BID #180 tab 03/30/22 05/27/22 Unknown Rx potassium chloride 20 mEq 20 meq PO DAILY #90 tab 03/30/22 05/27/22 Unknown Rx tablet,extended release(part/cryst) (Klor-Con M) tamsulosin 0.4 mg capsule 0.4 mg PO DAILY #90 cap 03/30/22 05/27/22 Unknown Rx alprazolam 0.5 mg tablet (Xanax) 0.5 mg PO DAILY PRN 05/27/22 05/27/22 Unknown History levothyroxine 125 mcg tablet 125 mcg PO DAILY 05/27/22 05/27/22 Unknown History Allergies Allergy/AdvReac Type Severity Reaction Status Date / Time No Known Allergies Allergy Verified 03/30/22 09:37 Current Medications Generic Name Dose Route Start Last Admin Trade Name Freq PRN Reason Stop Dose Admin Aspirin 325 mg 05/28/22 09:00 05/28/22 08:49 Aspirin 325 Mg Tablet PO 325 mg DAILY ABBY Administration Chlordiazepoxide 10 mg 05/28/22 15:30 05/29/22 04:50 Chlordiazepoxide 10 Mg Capsule PO Not Given Q6H ABBY Folic Acid 1 mg 05/28/22 09:00 05/28/22 08:49 Folic Acid 1 Mg Tablet PO 1 mg DAILY ABBY Administration Levothyroxine Sodium 125 mcg 05/28/22 09:00 05/28/22 08:49 Levothyroxine 125 Mcg Tablet PO 125 mcg DAILY ABBY Administration Lorazepam 2 mg 05/27/22 20:57 05/28/22 23:26 Lorazepam 2 Mg/Ml Inj 1 Ml IVP 2 mg PRN PRN Administration WITHDRAWAL Protocol Metoprolol Tartrate 25 mg 05/29/22 01:07 05/29/22 01:23 Metoprolol Tartrate 25 Mg Tablet PO 25 mg BID@0900,2100 ABBY Administration Multivitamins Therapeutic 1 tab 05/28/22 09:00 05/28/22 08:57 Multivitamin Therapeutic Tablet PO Not Given DAILY ABBY Nicotine 1 patch 05/27/22 20:57 05/28/22 08:49 Nicotine 21 Mg Patch TRANSDERMA 1 patch DAILY ABBY Administration Pantoprazole Sodium 40 mg 05/28/22 09:00 05/28/22 08:[address] 40 Mg Tablet PO 40 mg DAILY ABBY Administration Sodium Chloride 1 gm 05/28/22 09:00 05/28/22 17:23 Sodium Chloride 1 Gm Tablet PO 1 gm BID ABBY Administration Tamsulosin HCl 0.4 mg 05/28/22 09:00 05/28/22 08:49 Tamsulosin 0.4 Mg Capsule PO 0.4 mg DAILY ABBY Administration Thiamine Mononitrate 100 mg 05/28/22 09:00 05/28/22 08:49 Thiamine 100 Mg Tablet PO 100 mg DAILY ABBY Administration PFSH Acute PFSH: Medical History Alcoholism Aortic stenosis Ascending aortic aneurysm Atrial fibrillation Colon cancer Hypothyroidism Prostatic hypertrophy Pulmonary HTN Venous stasis Surgical History S/P AVR (aortic valve replacement) Bioprosthesis Family History Mother Cancer Father CAD (coronary artery disease) Myocardial infarction Brother Diabetes Social History Smoking and tobacco status: never smoked Alcohol intake: current Alcohol intake frequency: 3 or more drinks per day Alcohol type: beer and hard liquor Alcohol use comment: Per drinks heavily every day. Household members: spouse Marital status: Vitals/I&O/Wt Last Vital Signs Temp 98.3 F 05/29/22 04:00 Pulse 92 05/29/22 04:00 Resp 18 05/29/22 04:00 BP 148/95 05/29/22 04:00 Pulse Ox 95 05/29/22 04:00 05/28/22 05/28/22 05/29/22 14:59 22:59 06:59 Intake Total 240 / 240 200 / 440 Output Total 1100 / 1100 Balance 240 / 240 -900 / -660 Weight last 48 hrs Weight 170 lb Weight 170 lb Physical Exam Narrative: Arousable. Not completely lucid. No acute distress. Respiratory: No labored respiration or audible wheezes Cardiovascular: Irregular rhythm Abdomen is soft. No lower abdominal incisions. Skin multiple bruises Neck and range of motion Eyes, no discharge Psychiatric: Confusion Normal male genitalia. Normal meatus except for blood. Scrotum grossly normal. Testicles descended bilaterally. Neurologic: Confusion. Could not elicit unilateral or local deficit No palpable lymphadenopathy Chest status post median sternotomy well-healed Urinary Catheter Management: Asencio: Cath Placed During This Visit: yes Reason for Continuing Indwelling Catheter: Acute Urinary Retention or Obstruction Urinary Catheter Date of Insertion: 05/27/22 Urinary Catheter Time of Insertion: 21:00 Data : 05/29/22 12:55 05/29/22 04:42 Other Labs: PT 15.2, INR 1.17 CT Abd/Pel: My impression: Bulbar urethral location of Asencio catheter balloon. Bladder is distended. No bowel malpositioned over the bladder A&P Assessment and plan (1) Urethral trauma: Inability to bypass bulbar urethral false passage with bedside flexible cystoscopy. Original injury from catheter being pulled out by patient. Status: Acute (2) Alcoholic hepatitis: Status: Acute (3) Alcoholism: Status: Acute (4) Urine retention: Status: Acute (5) Wernickes encephalopathy: Status: Acute (6) S/P AVR (aortic valve replacement): Status: Acute (7) Altered mental status: Status: Acute (8) Atrial fibrillation: Chronic Status: Acute (9) Anemia: Acute blood loss anemia on chronic anemia Status: Acute Plan To the operating room tonight for reattempt at cystoscopy to establish continuity of urethra to bladder. If unsuccessful then suprapubic tube, open placement Consult Attestations Medical Necessity Statement: See attending Coding Level of Care Code Acute Social Work Assistant for [facility] Fwd Diagnoses Alcoholic hepatitis K70.10 Alcoholism F10.20 Urethral trauma S37.30XA Urine retention R33.9 Wernickes encephalopathy E51.2 S/P AVR (aortic valve replacement) Z95.2 Altered mental status R41.82 Atrial fibrillation I48.91 Anemia D64.9 Time Spent (min) 70 Comment Film and chart review, interview, physical exam, documentation, discussion with physician
--- NOTE | 2022-05-29 06:47 | CT_ITS ---
WS: [id number] CT ABDOMEN AND PELVIS WITH AND WITHOUT CONTRAST HISTORY: Severe gross hematuria TECHNIQUE: Unenhanced 5 mm axial imaging first performed through the abdomen. Post contrast imaging t hrough the abdomen and pelvis. Oral contrast has not been provided. Sagittal and coronal reformats a re submitted. All CT scans at [facility] use at least one of these dose optimization techniqu es: automated exposure control; mA and/or kV adjustment per patient size (includes targeted exams whe re dose is matched to clinical indication); or iterative reconstruction. CONTRAST: Omnipaque 350; 85 mL IV. DLP: 3267.0 mGy.cm COMPARISON: 07/08/2020 Very small bilateral pleural effusions. Mild cardiomegaly. RIGHT kidney: Mild diffuse perinephric stranding with no obstruction. No stone or enhancing masses. N o uroepithelial filling defect. LEFT kidney: Mild diffuse perinephric stranding with no obstruction. No calcification or mass. No uro epithelial filling defect. Motion beam hardening artifact through the abdomen and pelvis. The liver, spleen, pancreas, adrenals and gallbladder are negative for acute abnormalities. No bile duct dilatation. No ascites or adenopat hy. Mild distention of the colon with air. No colonic obstruction. No ascites or adenopathy. Ventral abdo rick wall hernia. Urinary bladder is moderately well distended. There is air in the urinary bladder. No enhancing sujatha s. There is a Asencio catheter present but is abnormally positioned. The balloon of the Asencio catheter is distended at the junction of the bulbous and penile urethra. Asencio catheter balloon is distended t o 3.8 x 3.2 cm and needs to be repositioned. Bilateral inguinal canals are patent with fat only. Osteoblastic and osteolytic bone disease. CT/CT abdomen pelvis wo/w [id number] IMPRESSION: 1. Abnormally positioned Asencio catheter. Asencio catheter balloon is distended a t the junction of the bulbous and penile urethra. Recommend decompression of th e balloon before repositioning. Asencio catheter needs to be advanced into the ur inary bladder. 2. Urinary bladder continues to be distended with urine and now has air which is probably related to the insertion of the Asencio catheter. 3. Perinephric renal stranding with no renal obstruction, calcification or mas s. 4. Atherosclerosis aorta.
[2022-05-29] MEDS: nicotine 21 mg Patch 1 PATCH TRANSDERMA (08:33)
[2022-05-29] MEDS: sodium chloride 1 gm Tablet PO (08:39)
[2022-05-29] MEDS: sodium chloride 0.9% 1,000 ML 125 ML IV ×2 (08:43→17:32)
[2022-05-29] MEDS: magnesium sulfate premix 4 GM/100 ML PREMIX IV (08:52)
[2022-05-29 08:53] LABS: Lactate Dehydrogenase 288 U/L (135-225)
[2022-05-29] MEDS: iohexol 350 mg/mL 100 mL Btl IV (09:27)
[2022-05-29] MEDS: piperacillin-tazobactam 3.375 GM in sodium chloride 0.9% (plus) 50 ML IV (11:30)
[2022-05-29 13:43] LABS: Hemoglobin 7.5 g/dL (11.7-16.6)
[2022-05-29 13:47] LABS: Hematocrit 20.6 % (42.0-52.0)
--- NOTE | 2022-05-29 14:35 | PC.OT ---
HOLD OT TREATMENT PER NURSING DUE TO DROWSINESS AT THIS TIME. WILL ATTEMPT AGAIN TOMORROW.
[2022-05-29] MEDS: sodium chloride 0.9% (100 ml) 100 ML 75 ML (15:49)
[2022-05-29] MEDS: LORazepam 2 mg/mL INJ 1 mL IVP (17:10)
[2022-05-29] MEDS: sodium chloride 0.9% 1,000 ML 50 ML IV (17:38)
--- NOTE | 2022-05-29 18:02 | P.PN_ITS ---
Subjective Subjective: Patient was seen this morning, he was seen right after CT scan, he does awaken, alert to his name, but falls back asleep, he remains confused, does not follow commands, according to nursing staff he had episodes of agitation overnight, he did have episodes of bradycardia heart rates as low as 30, but was asymptomatic, lasting for a few seconds, now in A. fib, 70s to 80s, he is bloody urine output has significantly declined Vitals/I&O/Wt Last Vital Signs Temp 98.6 F 05/29/22 17:29 Pulse 66 05/29/22 17:29 Resp 20 H 05/29/22 17:29 BP 143/66 05/29/22 17:29 Pulse Ox 96 05/29/22 17:29 05/29/22 05/29/22 05/29/22 06:59 14:59 22:59 Intake Total 200 / 200 1157.917 / 1357.917 Output Total 550 / 550 750 / 1300 Balance -350 / -350 407.917 / 57.917 Weight last 48 hrs Weight 77.111 kg Physical Exam Const: COMMON NORMALS: no acute distress OTHER: Alert to person, not to place, not to time, falls back asleep Resp: COMMON NORMALS: normal respiratory effort, No retractions, No use of a ccessory muscles and clear to auscultation bilaterally AUSCULTATION: clear to auscultation bilaterally Cardio: COMMON NORMALS: regular rate, S1 normal heart sound present and S2 normal heart sound present RATE: regular rate RHYTHM: abnormal rhythm irregularly irregular HEART SOUNDS: S1 normal heart sound present and S2 normal heart sound present GI: COMMON NORMALS: Normal to inspection, nondistended, normoactive bowel sounds present, Soft to palpation, non-tender and No hepatosplenomegaly present PALPATION: Yes Soft to palpation and Yes No hepatosplenomegaly present Extremity: COMMON NORMALS: no pedal edema Urinary Catheter Management: Asencio: Cath Placed During This Visit: yes Reason for Continuing Indwelling Catheter: Acute Urinary Retention or Obstruction Urinary Catheter Date of Insertion: 05/27/22 Urinary Catheter Time of Insertion: 21:00 Data : 05/29/22 12:55 05/29/22 04:42 A&P Assessment and plan (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 Discussed with his . He states that he drinks quite heavily, and otherwise functional decline, with frequent memory lapses, but has been able to drive himself to the hospital, although recently he been more confused. Per ER report driving aimlessly around town. At the current time he is not able to make safe decisions regarding his care or decision to leave the hospital. Will request one-to-one sitter as he is at risk of wandering or leaving in his confused state, with risk to himself and others if he leaves the hospital including getting lost or injured, or driving again with risk of MVA. Thiamine, folic acid, and VT replacement. Benzodiazepines with CIMI protocol for possibility of withdrawal. Monitor mentation, currently alert to person, not to place, not to time PT, OT assessment Case management consultation. Status: Acute (2) Hyponatremia: Received IV hydration at [facility]. Here sodium is 134. Continue with NaCl tablets. Regular diet. Monitor sodium. Possible progression to liver cirrhosis. TSH is normal. Status: Acute (3) Cholestasis: Possible progression to liver cirrhosis. Possible alcoholic hepatitis. Will check INR to allow Madrey discriminant calculation. Additional assessment by hepatobiliary ultrasound. No abdominal pain. He is afebrile, without leukocytosis or sign of infection. Status: Acute (4) Alcoholic hepatitis: Hyperbilirubinemia, alk phos elevation. Per his drinks heavily. INR within normal limits Status: Acute (5) Alcoholism: With concern for progression to Warnicke encephalopathy. Status: Acute (6) Atrial fibrillation: Continue metoprolol metoprolol. Status: Acute (7) S/P AVR (aortic valve replacement): Aspirin currently on hold Status: Acute (8) Hypothyroidism: TSH is normal. Levothyroxine. Status: Acute (9) Hematuria: Status: Acute (10) Bradycardia: Status: Acute (11) Alcohol withdrawal delirium: - CIWA protocol as above Status: Acute Plan Hematuria -Patient was pulling on his Asencio catheter 05/28/2022 -Developed hematuria, aspirin held, has not received anticoagulants, INR within normal limits -Started on continuous bladder irrigation -Continue to have bloody urine output -ct scan shows -1.? Abnormally positioned Asencio catheter. Asencio catheter balloon is distended at the junction of the bulbous and penile urethra. Recommend decompression of the balloon before repositioning. Asencio catheter needs to be advanced into the urinary bladder. 2.? Urinary bladder continues to be distended with urine and now has air which is probably related to the insertion of the Asencio catheter. 3.? Perinephric renal stranding with no renal obstruction, calcification or mass. 4.? Atherosclerosis aorta. -Asencio catheter was repositioned by nursing staff -Urology on consult Bradycardia -Has atrial fibrillation -Beta-shayne held -Serial EKGs, serial troponins, telemetry monitoring -Possible sinus node dysfunction related to alcoholism -We will continue to monitor Right forehead contusion: Denies pain. No acute intracranial abnormality on CT head. Opacification of the right frontal sinus. Probable chronic sinusitis. Lower extremity chronic venous stasis: Compression wraps bilateral lower extremities. He apparently goes to wound care clinic where these are managed for him. We do not have time at this time to unwrap them to more closely examin e, please do so at next opportunity. History of colon cancer, previously on palliative treatment, then with just monitoring due to refusal of follow-up surveillance colonoscopy. Hematuria, likely traumatic, Asencio catheter in place, will start continuous bladder irrigation, needs 22 Ukrainian Asencio catheter, fix Asencio catheter to leg, precautions to avoid traumatic removal BPH GERD Senile debility Gait instability Attestations Medical Necessity Statement*: Patient requires hospitalization due to alcohol withdrawal, hematuria, Warnicke's encephalopathy, bradycardia, Coding Level of Care Code Acute Server Service Assistant for g Fwd Diagnoses Wernickes encephalopathy E51.2 Hyponatremia E87.1 Cholestasis K83.1 Alcoholic hepatitis K70.10 Alcoholism F10.20 Atrial fibrillation I48.91 S/P AVR (aortic valve replacement) Z95.2 Hypothyroidism E03.9 Hematuria R31.9 Bradycardia R00.1 Alcohol withdrawal delirium F10.231
--- NOTE | 2022-05-29 18:09 | PC.NURSE ---
Patient resting in bed, CIWA conditions better during shift, continues to pull on tubes and sitter at bedside. Adament on leaving and going home, had beed AAOx1 in the AM but in afternoon was able to answer all orientation questions accurately even knowing the date. Patient still wants lines out of him. I want those scissors on you to cut this off my domingo. Patient educated on importance of tubes and lines. Was agreeable and understanding of need for blood. Asked questions about blood and blood products, how much he was receiving and how much it will help. Patient has wet lungs during auscultation and physician notified with orders given and placed and performed. HR has been low and high throughout shift with physician notified of those heart rates. Remaining VSS, family updated, patient prepped for OR, transfusion running. Will report to oncoming nurse at bedside at shift change. Room clean and clutter free with call light in reach and sitter at bedside.
--- NOTE | 2022-05-29 18:20 | P.ANESASSM_ITS ---
Pre-Anesthetic Assessment Height/Weight: Height 1.7 m Weight 77.111 kg Temp Pulse Resp BP Pulse Ox 98.6 F 66 20 H 143/66 96 05/29/22 17:29 05/29/22 17:29 05/29/22 17:29 05/29/22 17:29 05/29/22 17:29 Operation Date: 05/29/22 18:30 Proposed Procedures s Cystoscopy(Not Applicable) - Konrad Carvalho MD p Suprapubic Catheter Placement(Not Applicable) - Konrad Carvalho MD Familial anesthetic complications: Hx per patient's . No complications with anesthesia. Social Alcohol (Hx of DTs) Exam alert, clear to auscultation bilaterally and regular rate & rhythm follows commands CV/HEM Atrial Fibrillation, Anemia, Myocardial Infarction and Murmur () Hx of ascending aortic aneurysm Pulmonary HTN hx S/P AVR Hx of venous stasis Thrombocytopenia TTE 2019 ?CONCLUSIONS ?LV systolic function is normal with EF of 55 to 60%. ?Diastolic function is indeterminate because of atrial ?fibrillation. ?Bioprosthetic aortic valve is noted.? DVI is 0.35 which is ?normal.? No stenosis present. ?Compared with echocardiogram from 01/03/2016, no significant ?changes are noted. Chest CTA 08/2021 CT/CT angio chest [id number] IMPRESSION: ? 1.? Dilatation of the aortic root with descending thoracic aortic aneurysm measuring 4.4 cm unchanged. 2.? Cardiomegaly with sternotomy and coronary calcification. 3.? Small esophageal hiatal hernia. 4.? Both lungs are well aerated. No acute pulmonary infiltrates. 5.? Moderate thoracic kyphosis with ankylosis. ? Hyponatremia hematuria Hepatic Hepatitis GI CT abd/pelvis CT/CT abdomen pelvis wo/w [id number] IMPRESSION: ? 1.? Abnormally positioned Asencio catheter. Asencio catheter balloon is distended at the junction of the bulbous and penile urethra. Recommend decompression of the balloon before repositioning. Asencio catheter needs to be advanced into the urinary bladder. 2.? Urinary bladder continues to be distended with urine and now has air which is probably related to the insertion of the Asencio catheter. 3.? Perinephric renal stranding with no renal obstruction, calcification or mass. 4.? Atherosclerosis aorta. ? Metabolic Thyroid Disease Neuropsych Hx of wernickes encephalpathy Head CT negative Anesthetic Plan ASA status: 4E (81 year old w/ hx of ETOH with w/drawl DTs, wernicke's encephalopathy, s/p AVR, afib, htn, pulm htn, alcholic liver disease now with acute urethral trauma, hematuria w/ anemia) Anesthesia: Anesthesia Evaluation and General Other: Consent obtained from . We discussed risk and benefits of general anesthesia including PONV, sore throat (sometimes severe), corneal abrasion, positioning and peripheral nerve injuries, life threatening allergic reaction, post operative ICU admission requiring prolonged intubation, aspiration, stroke, heart attack, , and rare incidences of recall. Spouse consents to proceed with general anesthesia. Risk of > 500 ml blood loss (7ml/kg in children): No Other Pertinent Information Refusing oral meds on floor today. Medications/Allergies Home Medications Medication Instructions Recorded Confirmed Last Taken Type aspirin 325 mg tablet 325 mg PO DAILY 01/27/20 05/27/22 Unknown History omega-3 fatty acids 1,000 mg 1,000 mg PO BID 01/27/20 05/27/22 Unknown History capsule (Fish Oil Concentrate) pantoprazole 40 mg tablet,delayed 40 mg PO DAILY 07/22/20 05/27/22 Unknown History release doxazosin 4 mg tablet 4 mg PO DAILY 90 Days #90 tab 03/30/22 05/27/22 Unknown Rx furosemide 40 mg tablet 40 mg PO DAILY #90 tab 03/30/22 05/27/22 Unknown Rx metoprolol tartrate 25 mg tablet 25 mg PO BID #180 tab 03/30/22 05/27/22 Unknown Rx potassium chloride 20 mEq 20 meq PO DAILY #90 tab 03/30/22 05/27/22 Unknown Rx tablet,extended release(part/cryst) (Klor-Con M) tamsulosin 0.4 mg capsule 0.4 mg PO DAILY #90 cap 03/30/22 05/27/22 Unknown Rx alprazolam 0.5 mg tablet (Xanax) 0.5 mg PO DAILY PRN 05/27/22 05/27/22 Unknown History levothyroxine 125 mcg tablet 125 mcg PO DAILY 05/27/22 05/27/22 Unknown History Allergies Allergy/AdvReac Type Severity Reaction Status Date / Time No Known Allergies Allergy Verified 03/30/22 09:37 Current Medications Generic Name Dose Route Start Last Admin Trade Name Abel PRN Reason Stop Dose Admin Aspirin 325 mg 05/28/22 09:00 05/28/22 08:49 Aspirin 325 Mg Tablet PO 325 mg DAILY ABBY Administration Chlordiazepoxide 10 mg 05/28/22 15:30 05/29/22 14:35 Chlordiazepoxide 10 Mg Capsule PO Not Given Q6H ABBY Folic Acid 1 mg 05/28/22 09:00 05/29/22 08:39 Folic Acid 1 Mg Tablet PO Not Given DAILY ABBY Piperacillin Sod/Tazobactam 50 mls @ 12.5 mls/hr 05/29/22 11:30 05/29/22 15:47 Sod 3.375 gm/ Sodium Chloride IV Infused Q8H ABBY Infusion Protocol Sodium Chloride 1,000 mls @ 50 mls/hr 05/29/22 17:45 05/29/22 17:38 Sodium Chloride 0.9% IV 50 mls/hr .Q20H ABBY Administration Levothyroxine Sodium 125 mcg 05/28/22 09:00 05/29/22 08:39 Levothyroxine 125 Mcg Tablet PO Not Given DAILY ABBY Lorazepam 2 mg 05/27/22 20:57 05/29/22 17:10 Lorazepam 2 Mg/Ml Inj 1 Ml IVP 2 mg PRN PRN Administration WITHDRAWAL Protocol Multivitamins Therapeutic 1 tab 05/28/22 09:00 05/29/22 08:39 Multivitamin Therapeutic Tablet PO Not Given DAILY ABBY Nicotine 1 patch 05/27/22 20:57 05/29/22 08:33 Nicotine 21 Mg Patch TRANSDERMA 1 patch DAILY ABBY Administration Pantoprazole Sodium 40 mg 05/28/22 09:00 05/29/22 08:[address] 40 Mg Tablet PO Not Given DAILY ABBY Sodium Chloride 1 gm 05/28/22 09:00 05/29/22 17:35 Sodium Chloride 1 Gm Tablet PO Not Given BID ABBY Tamsulosin HCl 0.4 mg 05/28/22 09:00 05/29/22 08:40 Tamsulosin 0.4 Mg Capsule PO Not Given DAILY ABBY Thiamine Mononitrate 100 mg 05/28/22 09:00 05/29/22 08:40 Thiamine 100 Mg Tablet PO Not Given DAILY ABBY PFSH Anesthesia Medical History Alcoholism Aortic stenosis Ascending aortic aneurysm Atrial fibrillation Colon cancer Hypothyroidism Prostatic hypertrophy Pulmonary HTN Venous stasis Surgical History S/P AVR (aortic valve replacement) Bioprosthesis Family History Mother Cancer Father CAD (coronary artery disease) Myocardial infarction Brother Diabetes Social History Smoking and tobacco status: never smoked Alcohol intake: current Alcohol intake frequency: 3 or more drinks per day Alcohol type: beer and hard liquor Alcohol use comment: Per drinks heavily every day. Household members: spouse Marital status: Data Anesthesia : 05/29/22 12:55 05/29/22 04:42 Short CBC 05/28/22 05/28/22 05/28/22 Range/Units 04:49 15:45 19:08 WBC 7.9 (4.0-10.0) 10^3/uL Hgb 10.9 L 11.1 L 9.7 L (11.7-16.6) g/dL Hct 30.0 L 31.0 L 28.1 L (42.0-52.0) % MCV 96.2 H (80-94) fl Plt Count 130 (130-400) 10^3/cmm Neut % (Auto) 82.7 % Neut # (Auto) 6.50 (1.8-7.7) 10^3/uL 05/29/22 05/29/22 Range/Units 04:42 12:55 WBC 10.8 H (4.0-10.0) 10^3/uL Hgb 8.1 L 7.5 L (11.7-16.6) g/dL Hct 22.3 L 20.6 L* (42.0-52.0) % MCV 95.7 H (80-94) fl Plt Count 124 L (130-400) 10^3/cmm Neut % (Auto) 86.4 % Neut # (Auto) 9.33 H (1.8-7.7) 10^3/uL BMP 05/27/22 05/28/22 05/29/22 17:20 04:49 04:42 Sodium 128 L 131 L 134 L Potassium 4.4 4.6 Chloride 91 L 94 L 98 Carbon Dioxide 21 L 16 L 19 L BUN 8 7 L Creatinine 0.6 L 0.8 Glucose 79 118 H Calcium 8.8 8.3 L Cardiac Enzymes 05/27/22 05/27/22 05/29/22 Range/Units 17:20 20:20 04:42 Creatine Kinase 1174 H* (39-308) U/L Troponin T Baseline 26 H (0-15) ng/L Troponin T 120 Minute 24.57 H (0-15) ng/L Delta Troponin T -1.43 L (0-10) ABS# Liver Function 05/27/22 05/28/22 05/29/22 Range/Units 17:20 04:49 04:42 Total Bilirubin 1.5 H 1.2 1.2 (0.15-1.2) mg/dL AST 128 H 110 H 82 H (0-40) U/L ALT 42 H 39 34 (0-41) U/L Alkaline Phosphatase 137 H 123 102 (40-130) IU/L Albumin 3.3 L 3.0 L (3.5-5.2) g/dL Urine 05/27/22 Range/Units 20:22 Urine Color Yellow (Yellow) Urine Appearance Clear (CLEAR) Urine pH 5 (5-7) Ur Specific [place] 1.015 (1.005-1.030) Urine Protein Neg (Negative) Urine Glucose (UA) Norm (Normal) Urine Ketones 2+ H (Negative) Urine Nitrate Negative (Negative) Urine Bilirubin 1+ H (Negative) Ur Leukocyte Esterase Negative (Negative) Urine RBC 0-4 H (0-2) /hpf Urine WBC 0-4 H (0-5) /hpf Blood Bank 05/29/22 12:55 Blood Type AB Negative Rho(D) Type Negative Antibody Screen Negative Coags 05/27/22 05/29/22 05/29/22 20:20 04:42 04:42 PT 14.80 15.20 H INR 1.13 1.17 C-Reactive Protein 92.8 H Cardiac Studies: Echocardiogram Ultrasound 08/16/20
--- NOTE | 2022-05-29 19:52 | PM.OP ---
Operative Report Date of procedure: May 29, 2022 Pre-op diagnosis: Catheter related urethral trauma Post-op diagnosis: Same Procedure done: 1. Cystoscopy 2. Open cystotomy with suprapubic tube placement Implants: Asencio catheter (24 [place] two-way with 30 cc balloon as suprapubic catheter) Specimens removed/disposition: None Pathology: None Surgeon: Deven Anesthesia: General Estimated blood loss: Less than 10 cc Urine output: Not measured Complications: None Findings: Bladder easily identified Tube with good function at completion of procedure Brief History: Mr. Grimm is an 81-year-old white male admitted for generalized deterioration and increasing confusion related to alcoholism and alcoholic liver dysfunction. He pulled out his Asencio catheter with significant trauma. Attempts at catheter replacement ultimately were proven to be unsuccessful with CT scan demonstrating catheter in the bulbar urethra. Bedside cystoscopy earlier today showed impassable urethral trauma with at least 1 significant posterior false passage. It was decided to take him to the operating room emergently for suprapubic tube placement if brief cystoscopy failed to show the true lumen. Procedure: After emergent evaluation examination and obtaining of informed consent he was taken to the operating suite on 05/29/2022 where general anesthesia was administered without difficulty after appropriate timeout was performed, SCDs confirmed to be functioning, preoperative antibiotics administered, beta-shayne protocol confirmed. Prepped and draped in usual sterile fashion in dorsolithotomy position paying careful attention to avoiding pressure points. The abdomen was prepped well above the umbilicus. The suprapubic area was prepped and draped into the field A 17 [place]'s cystoscope was advanced into the urethra and into the proximal urethra where a large clot was identified. The posterior false passage had been seen at bedside was identified. Careful inspection failed to reveal a true lumen or a flap of mucosa that could be possibly true lumen. This was a brief procedure and it was abandoned quickly when it was clear that there was no easy pathway into the bladder. Attention was then directed to the suprapubic operative field. A horizontal lower abdominal incision was made several fingerbreadths above the crease. Incision was taken down to the rectus fascia which was then opened in a vertical fashion down to the symphysis pubis. The peritoneum was swept in a cephalad direction exposing the bladder. Confirmation of bladder was made with a spinal needle and aspiration of urine. A puncture incision was made on the distal flap below the incision but above the horizontal crease. A 24 [place] two-way 30 cc balloon catheter was then advanced into the puncture incision into the wound and set aside. Allis clamps were used to secure the anterior bladder wall and a incision was made into the bladder with electrocautery. A pursestring suture was then placed circumferentially around the bladder perforation and the catheter was advanced into the bladder and the balloon was inflated with 30 cc. A couple more superficial sutures in the adventitial muscularis layers were made to further secure the catheter to the bladder wall. The wound was then copiously irrigated with normal saline solution. Hemostasis was visually confirmed. The fascia was then closed with a running 0 PDS suture. Fascia was confirmed to be tightly closed. The subcutaneous tissue was then loosely approximated with running 3-0 Vicryl and then frank were applied to the skin. Irrigation was conducted at each layer of closure. The suprapubic tube was then secured to the skin with 2 heavy nylon sutures. Catheter was then irrigated and confirmed good function. Sterile dressings were applied. The catheter secured with a StatLock. He tolerated the procedure well without complications and was awakened in the operating room and returned to the recovery room in stable condition.
--- NOTE | 2022-05-29 20:02 | ECG_ITS ---
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 Measurements Intervals [place] Rate: 90 P: CT: QRS: 82 QRSD: 149 T: -38 QT: 403 QTc: 496 Interpretive Statements ATRIAL FIBRILLATION RIGHT BUNDLE BRANCH BLOCK [120+ ms QRS DURATION, UPRIGHT V1, 40+ ms S IN I/aVL/V4/V5/V6] MODERATE T-WAVE ABNORMALITY, CONSIDER LATERAL ISCHEMIA [-0.1+ mV T WAVE IN I/aVL/V5/V6] MODERATE T-WAVE ABNORMALITY, CONSIDER INFERIOR ISCHEMIA [-0.1+ mV T WAVE IN II/aVF] Compared to ECG 05/27/2022 21:16:49 T-wave abnormality now present Possible ischemia now present Electronically Signed On 05-30-2022 10:26:42 CDT by Dhiraj Laura M.D. [id number]
--- NOTE | 2022-05-29 20:36 | ANE.PACU2 ---
Inpatient post-anesthesia follow up: Airway intact: Yes Vital signs: Temperature 97.0 F Pulse Rate 91 Respiratory Rate 18 Blood Pressure 175/75 Pulse Oximetry 94 Oxygen Delivery Me thod Room Air Oxygen Flow Rate 6 Fraction of Inspir ed Oxygen Hydration adequate: Yes Nausea and vomiting: No Pain level: 1 Mental status: Baseline
[2022-05-29 21:22] LABS: Hematocrit 26.7 % (42.0-52.0); Hemoglobin 9.3 g/dL (11.7-16.6); Reticulocyte % 2.5 % (0.5-2.0)
[2022-05-29] MEDS: pantoprazole 40 mg SDV IVP (21:30)
[2022-05-29 21:39] LABS: Troponin(5th) Baseline 19 ng/L (0-15)
[2022-05-29 22:09] LABS: LAB Peripheral Smear Sent for Review
[2022-05-29 23:21] LABS: Troponin 5 2HR 18.36 ng/L (0-15)
[2022-05-29 23:25] LABS: Troponin 5 2HR Delta -0.64 ABS# (0-10)
[2022-05-29 23:51] LABS: Ferritin 329 ng/mL (30-400); Iron 194 ug/dL (59-158)
[2022-05-30] VITALS (9 sets, daily range): BP systolic 129–169; BP diastolic 68–78; PULSE 74–97; RESP 17–18; TEMP 36.7–37.6; O2SAT 89–94
--- NOTE | 2022-05-30 00:02 | ECG_ITS ---
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 Measurements Intervals [place] Rate: 92 P: 88 MA: 166 QRS: 83 QRSD: 152 T: 21 QT: 382 QTc: 475 Interpretive Statements Atrial fibrillation WITH OCCASIONAL VENTRICULAR PREMATURE COMPLEXES RIGHT BUNDLE BRANCH BLOCK [120+ ms QRS DURATION, UPRIGHT V1, 40+ ms S IN I/aVL/V4/V5/V6] MODERATE T-WAVE ABNORMALITY, CONSIDER LATERAL ISCHEMIA [-0.1+ mV T WAVE IN I/aVL/V5/V6] MODERATE T-WAVE ABNORMALITY, CONSIDER INFERIOR ISCHEMIA [-0.1+ mV T WAVE IN II/aVF] Compared to ECG 05/29/2022 20:46:11 Ventricular premature complex(es) now present T-wave abnormality still present Possible ischemia still present Electronically Signed On 05-30-2022 10:28:21 CDT by Dhiraj Laura M.D. [email or web address] Networkturning point mature adult care unitPya Analyticskettering health [facility].[id number]
[2022-05-30] MEDS: haloperidol inj 5 mg/mL INJ 1 mL 1 MG IVP (00:27)
[2022-05-30] MEDS: piperacillin-tazobactam 3.375 GM in sodium chloride 0.9% (plus) 50 ML IV ×3 (04:03→21:22)
[2022-05-30 04:29] LABS: Basophils % 0.2 %; Hemoglobin 8.3 g/dL (11.7-16.6); Lymphocytes # 0.2 10^3/uL (0.8-4.8); Lymphocytes % 2.1 %; Mean Corpuscular HGB Conc 34.6 g/dL (30.0-36.0); Mean Corpuscular Hemoglobin 33.6 pg (28.0-34.0); Mean Corpuscular Volume 97.2 fl (80-94); Mean Platelet Volume 10.4 fL (7.4-10.4); Monocytes # 0.3 10^3/uL (0.2-0.9); Monocytes % 2.6 %; Neutrophils # 10.26 10^3/uL (1.8-7.7); Neutrophils % 93.5 %; Nucleated Red Blood Cells % 0 %; Platelet Count 137 10^3/cmm (130-400); Red Blood Count 2.47 10^6/uL (4.1-5.3); Red Cell Distribution Width 16.3 % (12.1-15.1)
[2022-05-30 04:42] LABS: INR 1.13 (0.8-1.2)
[2022-05-30 04:52] LABS: Ammonia 18 umol/L (16-60)
[2022-05-30 04:55] LABS: Alanine Aminotransferase 33 U/L (0-41); Alkaline Phosphatase 103 IU/L (40-130); Anion Gap 17.7 (5-19); Aspartate Amino Transferase 61 U/L (0-40); Blood Urea Nitrogen 10 mg/dL (8-23); C Reactive Protein 117.2 mg/L (0.0-4.9); Calcium 8.3 mg/dL (8.5-10.5); Carbon Dioxide 23 mmol/L (22-29); Chloride 104 mmol/L (98-107); Ferritin 336 ng/mL (30-400); Globulin 2.7 g/dL (1.3-4.6); Glucose 154 mg/dL (65-115); Osmolality Calculated 292 mOsm/kg (285-295); Potassium 4.7 mmol/L (3.5-5.1); Sodium 140 mmol/L (136-145); Total Bilirubin 1.1 mg/dL (0.15-1.2); Total Protein 5.7 g/dL (6.6-8.7); Troponin 5 6HR 18.24 ng/L (0-15)
[2022-05-30 04:58] LABS: Troponin 5 6HR Delta -0.76 ng/L (0-12)
[2022-05-30 05:01] LABS: Creatine Phosphokinase 706 U/L (39-308)
[2022-05-30] MEDS: pantoprazole 40 mg SDV IVP ×2 (09:19→17:43)
[2022-05-30] MEDS: folic acid 1 mg Tablet PO (09:20)
[2022-05-30] MEDS: levothyroxine 125 mcg Tablet PO (09:20)
[2022-05-30] MEDS: sucralfate 1 gm Tablet PO ×4 (09:20→21:22)
[2022-05-30] MEDS: thiamine 100 mg Tablet PO (09:20)
[2022-05-30] MEDS: aspirin 325 mg Tablet PO (09:20)
[2022-05-30] MEDS: multivitamin therapeutic Tablet 1 TAB PO (09:20)
[2022-05-30] MEDS: sodium chloride 1 gm Tablet PO (09:20)
[2022-05-30] MEDS: nicotine 21 mg Patch 1 PATCH TRANSDERMA (09:21)
--- NOTE | 2022-05-30 09:25 | PC.SOCIAL ---
IMM update IMM updated with patient. Copy Pg 2 provided. Initialled, dated, timed, and placed in chart.
[2022-05-30] MEDS: FUROsemide 10 mg/mL SDV 4mL 40 MG IVP (10:53)
--- NOTE | 2022-05-30 15:06 | PM.PN ---
Subjective Subjective: Patient was seen this morning he is much more alert and awake, alert to person, to place, not to time, follows commands, he did have 1 episode of agitation overnight requiring Haldol, afebrile overnight, normotensive, on room air, Vitals/I&O/Wt Last Vital Signs Temp 98.1 F 05/30/22 11:49 Pulse 74 05/30/22 11:49 Resp 17 05/30/22 11:49 BP 132/68 05/30/22 11:49 Pulse Ox 93 05/30/22 11:49 05/30/22 05/30/22 05/30/22 06:59 14:59 22:59 Intake Total 170 / 170 Output Total 430 / 2690 150 / 150 Balance -430 / -982.083 Physical Exam Const: COMMON NORMALS: no acute distress and patient oriented x3 Neck/C-Spine: COMMON NORMALS: no JVD Resp: COMMON NORMALS: normal respiratory effort, No retractions, No use of accessory muscles and clear to auscultation bilaterally AUSCULTATION: clear to auscultation bilaterally OTHER: Crackles in lung de [place] present Cardio: COMMON NORMALS: no JVD, regular rate, regular rhythm, S1 normal heart sound present and S2 normal heart sound present RATE: regular rate RHYTHM: regular rhythm HEART SOUNDS: S1 normal heart sound present and S2 normal heart sound present GI: COMMON NORMALS: Normal to inspection, nondistended, normoactive bowel sounds present, Soft to palpation, non-tender and No hepatosplenomegaly present PALPATION: Yes Soft to palpation and Yes No hepatosplenomegaly present Extremity: COMMON NORMALS: no pedal edema Neuro: COMMON NORMALS: patient oriented x3 Psych: COMMON NORMALS: mental status grossly normal Urinary Catheter Management: Asencio: Cath Placed During This Visit: yes, but has since been removed by the nurse Reason for Continuing Indwelling Catheter: Acute Urinary Retention or Obstruction Urinary Catheter Date of Insertion: 05/27/22 Urinary Catheter Time of Insertion: 21:00 Date Urinary Catheter Removed: 05/29/22 Time Urinary Catheter Discontinued: 17:35 Suprapubic: Cath Placed During This Visit: yes Reason for Continuing Indwelling Catheter: Acute Urinary Retention or Obstruction Urinary Catheter Date of Insertion: 05/29/22 Data : 05/30/22 03:44 06/29/22 03:44 A&P Assessment and plan (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 Discussed with his . He states that he drinks quite heavily, and otherwise functional decline, with frequent memory lapses, but has been able to drive himself to the hospital, although recently he been more confused. Per ER report driving aimlessly around town. At the current time he is not able to make safe decisions regarding his care or decision to leave the hospital. Will request one-to-one sitter as he is at risk of wandering or leaving in his confused state, with risk to himself and others if he leaves the hospital including getting lost or injured, or driving again with risk of MVA. Thiamine, folic acid, and VT replacement. Benzodiazepines with CIWA protocol for possibility of withdrawal. Monitor mentation, currently alert to person, not to place, not to time PT, OT assessment Case management consultation. Status: Acute (2) Hyponatremia: Received IV hydration at [facility]. Here sodium is 134. Continue with NaCl tablets. Regular diet. Monitor sodium. Possible progression to liver cirrhosis. TSH is normal. Status: Acute (3) Cholestasis: Possible progression to liver cirrhosis. Possible alcoholic hepatitis. Will check INR to allow Madrey discriminant calculation. Additional assessment by hepatobiliary ultrasound. No abdominal pain. He is afebrile, without leukocytosis or sign of infection. Status: Acute (4) Alcoholic hepatitis: Hyperbilirubinemia, alk phos elevation. Per his drinks heavily. INR within normal limits Status: Acute (5) Alcoholism: With concern for progression to Warnicke encephalopathy. Status: Acute (6) Atrial fibrillation: Metoprolol held Status: Acute (7) S/P AVR (aortic valve replacement): Aspirin currently on hold Status: Acute (8) Hypothyroidism: TSH is normal. Levothyroxine. Status: Acute (9) Hematuria: Status: Acute (10) Bradycardia: Status: Acute (11) Alcohol withdrawal delirium: - CIWA protocol as above Status: Acute Plan Hematuria -Patient was pulling on his Asencio catheter 05/28/2022 -Developed hematuria, aspirin held, has not received anticoagulants, INR within normal limits -Started on continuous bladder irrigation, continue to have bloody urine output -Status post suprapubic catheter placement -ct scan shows -1.? Abnormally positioned Asencio catheter. Asencio catheter balloon is distended at the junction of the bulbous and penile urethra. Recommend decompression of the balloon before repositioning. Asencio catheter needs to be advanced into the urinary bladder. 2.? Urinary bladder continues to be distended with urine and now has air which is probably related to the insertion of the Asencio catheter. 3.? Perinephric renal stranding with no renal obstruction, calcification or mass. 4.? Atherosclerosis aorta. -Monitor suprapubic catheter -Urology on consult Bradycardia -Has atrial fibrillation -Beta-shayne held -Serial EKGs, serial troponins, telemetry monitoring -Possible sinus node dysfunction related to alcoholism -We will continue to monitor Right forehead contusion: Denies pain. No acute intracranial abnormality on CT head. Opacification of the right frontal sinus. Probable chronic sinusitis. Lower extremity chronic venous stasis: Compression wraps bilateral lower extremities. He apparently goes to wound care clinic where these are managed for him. We do not have time at this time to unwrap them to more closely examine, please do so at next opportunity. History of colon cancer, previously on palliative treatment, then with just monitoring due to refusal of follow-up surveillance colonoscopy. 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
[2022-05-31] VITALS (10 sets, daily range): BP systolic 152–178; BP diastolic 54–83; PULSE 63–95; RESP 16–20; TEMP 36.6–37.9; O2SAT 90–97; BMI 26.6
--- NOTE | 2022-05-31 00:58 | PC.NURSE ---
i reported high temp 100.2 to nurse
[2022-05-31] MEDS: piperacillin-tazobactam 3.375 GM in sodium chloride 0.9% (plus) 50 ML IV ×3 (03:29→21:13)
[2022-05-31 03:43] LABS: Basophils % 0.1 %; Hemoglobin 7.5 g/dL (11.7-16.6); Lymphocytes # 0.6 10^3/uL (0.8-4.8); Lymphocytes % 6.3 %; Mean Corpuscular HGB Conc 35.7 g/dL (30.0-36.0); Mean Corpuscular Hemoglobin 34.2 pg (28.0-34.0); Mean Corpuscular Volume 95.9 fl (80-94); Mean Platelet Volume 10.2 fL (7.4-10.4); Monocytes # 1.1 10^3/uL (0.2-0.9); Monocytes % 10.9 %; Neutrophils # 8.22 10^3/uL (1.8-7.7); Neutrophils % 81.1 %; Nucleated Red Blood Cells % 0.3 %; Platelet Count 156 10^3/cmm (130-400); Red Blood Count 2.19 10^6/uL (4.1-5.3); Red Cell Distribution Width 15.9 % (12.1-15.1); White Blood Count 10.1 10^3/uL (4.0-10.0)
[2022-05-31 03:52] LABS: INR 1.14 (0.8-1.2)
[2022-05-31 03:58] LABS: Ammonia 24 umol/L (16-60); Lactate (Lactic Acid level) 0.8 mmol/L (0.5-2.2)
[2022-05-31 04:02] LABS: Alanine Aminotransferase 28 U/L (0-41); Albumin Level 2.9 g/dL (3.5-5.2); Alkaline Phosphatase 91 IU/L (40-130); Anion Gap 13.2 (5-19); Aspartate Amino Transferase 41 U/L (0-40); Blood Urea Nitrogen 15 mg/dL (8-23); C Reactive Protein 78.5 mg/L (0.0-4.9); Calcium 8.4 mg/dL (8.5-10.5); Carbon Dioxide 26 mmol/L (22-29); Chloride 107 mmol/L (98-107); Ferritin 309 ng/mL (30-400); Globulin 2.7 g/dL (1.3-4.6); Glucose 135 mg/dL (65-115); Osmolality Calculated 297 mOsm/kg (285-295); Potassium 4.2 mmol/L (3.5-5.1); Sodium 142 mmol/L (136-145); Total Bilirubin 0.7 mg/dL (0.15-1.2); Total Protein 5.6 g/dL (6.6-8.7)
[2022-05-31 04:12] LABS: Creatine Phosphokinase 360 U/L (39-308)
[2022-05-31] MEDS: pantoprazole 40 mg SDV IVP ×2 (05:59→18:35)
[2022-05-31] MEDS: sucralfate 1 gm Tablet PO ×3 (06:22→21:13)
[2022-05-31] MEDS: aspirin 325 mg Tablet PO (09:17)
[2022-05-31] MEDS: folic acid 1 mg Tablet PO (09:17)
[2022-05-31] MEDS: levothyroxine 125 mcg Tablet PO (09:17)
[2022-05-31] MEDS: thiamine 100 mg Tablet PO (09:18)
[2022-05-31] MEDS: nicotine 21 mg Patch 1 PATCH TRANSDERMA (09:18)
[2022-05-31] MEDS: multivitamin therapeutic Tablet 1 TAB PO (09:18)
--- NOTE | 2022-05-31 15:32 | PM.PN ---
Subjective Subjective: Patient was seen this morning, according to nursing staff, he has been asking for me the entire morning, he asked me if I am the doctor, he is seeing me for the entire week, he does not remember me, he is alert to person, but does not remember his birthdate, does not remember where he was born, he does not remember where he lives, does not he has a , tells me his son is somewhere in somewhere [facility], does not know the year, does not know the president, does not know the month, he can follow commands, he is primary concerns that he needs to go home, as tomorrow he needs to have lymphedema wraps at [facility], he can follow commands, remains quite weak, generalized weakness Vitals/I&O/Wt Last Vital Signs Temp 97.8 F 05/31/22 11:40 Pulse 63 05/31/22 11:40 Resp 20 H 05/31/22 11:40 BP 168/63 05/31/22 11:40 Pulse Ox 96 05/31/22 11:40 05/31/22 05/31/22 05/31/22 06:59 14:59 22:59 Intake Total 50 / 1510 290 / 290 Output Total 880 / 1030 350 / 350 Balance -830 / 480 -60 / -60 Physical Exam Const: COMMON NORMALS: no acute distress OTHER: Alert to person, not to place, not to time, can follow commands, Does seem to be quite forgetful, has evidence of short-term memory loss, long-term memory loss Does seem to confabulate, make up stories due to losses of timeframe of his memory, Resp: COMMON NORMALS: normal respiratory effort, No retractions, No use of accessory muscles and clear to auscultation bilaterally AUSCULTATION: clear to auscultation bilaterally Cardio: COMMON NORMALS: regular rate, regular rhythm, S1 normal heart sound present and S2 normal heart sound present RATE: regular rate RHYTHM: regular rhythm HEART SOUNDS: S1 normal heart sound present and S2 normal heart sound present GI: COMMON NORMALS: Normal to inspection, nondistended, normoactive bowel sounds present, Soft to palpation and non-tender PALPATION: Yes Soft to palpation Extremity: COMMON NORMALS: no pedal edema Urinary Catheter Management: Asencio: Cath Placed During This Visit: yes, but has since been removed by the nurse Reason for Continuing Indwelling Catheter: Acute Urinary Retention or Obstruction Urinary Catheter Date of Insertion: 05/27/22 Urinary Catheter Time of Insertion: 21:00 Date Urinary Catheter Removed: 05/29/22 Time Urinary Catheter Discontinued: 17:35 Suprapubic: Cath Placed During This Visit: yes Reason for Continuing Indwelling Catheter: Required Immobilization for Trauma or Surgery or Anesthesia Urinary Catheter Date of Insertion: 05/29/22 Data : 05/31/22 03:09 05/31/22 03:09 A&P Assessment and plan (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 Discussed with his . He states that he drinks quite heavily, and otherwise functional decline, with frequent memory lapses, but has been able to drive himself to the hospital, although recently he been more confused. Per ER report driving aimlessly around town. At the current time he is not able to make safe decisions regarding his care or decision to leave the hospital. Will request one-to-one sitter as he is at risk of wandering or leaving in his confused state, with risk to himself and others if he leaves the hospital including getting lost or injured, or driving again with risk of MVA. Thiamine, folic acid, and VT replacement. Benzodiazepines with CIWA protocol for possibility of withdrawal. Monitor mentation, currently alert to person, not to place, not to time PT, OT assessment Case management consultation. Status: Acute (2) Hyponatremia: Received IV hydration at [facility]. Here sodium is 134. Continue with NaCl tablets. Regular diet. Monitor sodium. Possible progression to liver cirrhosis. TSH is normal. Status: Acute (3) Cholestasis: Possible progression to liver cirrhosis. Possible alcoholic hepatitis. Will check INR to allow Madrey discriminant calculation. Additional assessment by hepatobiliary ultrasound. No abdominal pain. He is afebrile, without leukocytosis or sign of infection. Status: Acute (4) Alcoholic hepatitis: Hyperbilirubinemia, alk phos elevation. Per his drinks heavily. INR within normal limits Status: Acute (5) Alcoholism: With concern for progression to Warnicke encephalopathy. Status: Acute (6) Atrial fibrillation: Metoprolol held Status: Acute (7) S/P AVR (aortic valve replacement): Aspirin currently on hold Status: Acute (8) Hypothyroidism: TSH is normal. Levothyroxine. Status: Acute (9) Hematuria: Status: Acute (10) Bradycardia: Status: Acute (11) Alcohol withdrawal delirium: - [facility] protocol as above Status: Acute Plan Alcohol withdrawal, with delirium, out of alcohol withdrawal window Warnicke's encephalopathy/Korsakoff syndrome -Alert to person, not to place, not to time, does not know his birthdate, does not know where he was born, -Has short-term memory loss, long-term memory loss -Also seems to confabulate, coming up with stories due to gaps in his memory -Given his current condition, I am concerned about him going home without appropriate assistance -Patient wants to go home -He has a history of leaving AGAINST MEDICAL ADVICE -Patient's wants him at a usp, they want to pursue guardianship if possible -Currently on concerned that he does not have capacity to make decisions -I Have Consulted Psychiatry, to aid in capacity decision evaluation Acute anemia -Hemoglobin 7.5 -Has received 1 unit PRBC -He does not have any blood or black stools, does have some left flank, and left thigh bruising from fall -Abdominal CT negative for any significant retroperitoneal bleed -Likely multifactorial from alcoholism, hematuria from pulling his Asencio catheter, possible slow GI bleed -We will transfuse 1 unit PRBC -Protonix, Carafate -Monitor hemoglobin Hematuria -Patient was pulling on his Asencio catheter 05/28/2022 -Developed hematuria, aspirin held, has not received anticoagulants, INR within normal limits -Started on continuous bladder irrigation, continue to have bloody urine output -Status post suprapubic catheter placement -ct scan shows -1.? Abnormally positioned Asencio catheter. Asencio catheter balloon is distended at the junction of the bulbous and penile urethra. Recommend decompression of the balloon before repositioning. Asencio catheter needs to be advanced into the urinary bladder. 2.? Urinary bladder continues to be distended with urine and now has air which is probably related to the insertion of the Asencio catheter. 3.? Perinephric renal stranding with no renal obstruction, calcification or mass. 4.? Atherosclerosis aorta. -Monitor suprapubic catheter -Urology on consult Bradycardia -Has atrial fibrillation -Beta-shayne held -Serial EKGs, serial troponins, telemetry monitoring -Possible sinus node dysfunction related to alcoholism -We will continue to monitor Right forehead contusion: Denies pain. No acute intracranial abnormality on CT head. Opacification of the right frontal sinus. Probable chronic sinusitis. Lower extremity chronic venous stasis: Compression wraps bilateral lower extremities. He apparently goes to wound care clinic where these are managed for him. We do not have time at this time to unwrap them to more closely examine, please do so at next opportunity. History of colon cancer, previously on palliative treatment, then with just monitoring due to refusal of follow-up surveillance colonoscopy. BPH GERD Senile debility Gait instability DVT prophylaxis held due to hematuria, anemia Full code Attestations Medical Necessity Statement*: Patient requires hospitalization due to Wernicke's encephalopathy, acute anemia, bradycardia, Coding Level of Care Code Acute [employer] Head for [facility] Diagnoses Wernickes encephalopathy E51.2 Hyponatremia E87.1 Cholestasis K83.1 Alcoholic hepatitis K70.10 Alcoholism F10.20 Atrial fibrillation I48.91 S/P AVR (aortic valve replacement) Z95.2 Hypothyroidism E03.9 Hematuria R31.9 Bradycardia R00.1 Alcohol withdrawal delirium F10.231
[2022-05-31] MEDS: sodium chloride 0.9% (100 ml) 100 ML (16:11)
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
[2022-06-01] VITALS: BP 157/70; PULSE 48; RESP 16; TEMP 37.2; O2SAT 94
[2022-06-01 04:00] VITALS: BP 170/67; PULSE 73; RESP 16; TEMP 36.8; O2SAT 92
[2022-06-01] MEDS: piperacillin-tazobactam 3.375 GM in sodium chloride 0.9% (plus) 50 ML IV ×3 (04:02→21:59)
[2022-06-01 05:19] LABS: Basophils % 0.3 %; Eosinophils % 0.5 %; Hematocrit 23.2 % (42.0-52.0); Hemoglobin 8.4 g/dL (11.7-16.6); Lymphocytes # 0.6 10^3/uL (0.8-4.8); Mean Corpuscular HGB Conc 36.2 g/dL (30.0-36.0); Mean Corpuscular Hemoglobin 34.1 pg (28.0-34.0); Mean Corpuscular Volume 94.3 fl (80-94); Monocytes # 0.7 10^3/uL (0.2-0.9); Monocytes % 10.9 %; Neutrophils # 4.86 10^3/uL (1.8-7.7); Neutrophils % 75.8 %; Nucleated Red Blood Cells # 0.1 /100WBC; Nucleated Red Blood Cells % 1.2 %; Platelet Count 156 10^3/cmm (130-400); Red Blood Count 2.46 10^6/uL (4.1-5.3); Red Cell Distribution Width 15.1 % (12.1-15.1); White Blood Count 6.4 10^3/uL (4.0-10.0)
[2022-06-01 05:31] LABS: Alanine Aminotransferase 26 U/L (0-41); Albumin Level 2.8 g/dL (3.5-5.2); Alkaline Phosphatase 88 IU/L (40-130); Anion Gap 12.7 (5-19); Aspartate Amino Transferase 42 U/L (0-40); Blood Urea Nitrogen 14 mg/dL (8-23); Calcium 8.4 mg/dL (8.5-10.5); Carbon Dioxide 26 mmol/L (22-29); Chloride 107 mmol/L (98-107); Globulin 2.8 g/dL (1.3-4.6); Glucose 104 mg/dL (65-115); Magnesium 1.9 mg/dL (1.7-2.3); Osmolality Calculated 295 mOsm/kg (285-295); Phosphorus 2.6 mg/dL (2.5-4.5); Potassium 3.7 mmol/L (3.5-5.1); Sodium 142 mmol/L (136-145); Total Bilirubin 0.9 mg/dL (0.15-1.2); Total Protein 5.6 g/dL (6.6-8.7)
[2022-06-01] MEDS: sucralfate 1 gm Tablet PO ×4 (06:32→21:59)
[2022-06-01] MEDS: pantoprazole 40 mg SDV IVP ×2 (06:53→17:54)
[2022-06-01 07:16] VITALS: BP 169/69; PULSE 56; RESP 17; TEMP 36.6; O2SAT 96
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
[2022-06-01] MEDS: nicotine 21 mg Patch 1 PATCH TRANSDERMA (10:33)
[2022-06-01] MEDS: folic acid 1 mg Tablet PO (10:34)
[2022-06-01] MEDS: levothyroxine 125 mcg Tablet PO (10:34)
[2022-06-01] MEDS: thiamine 100 mg Tablet PO (10:34)
[2022-06-01] MEDS: aspirin 325 mg Tablet PO (10:34)
[2022-06-01] MEDS: multivitamin therapeutic Tablet 1 TAB PO (10:34)
[2022-06-01 11:12] VITALS: BP 173/69; PULSE 65; RESP 16; TEMP 36.7; O2SAT 97
--- NOTE | 2022-06-01 11:39 | PC.SOCIAL ---
IMM update IMM updated with patient. Copy Pg 2 provided. Initialled, dated, timed, and placed in chart.
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
[2022-06-01 15:30] VITALS: BP 158/63; PULSE 49; RESP 16; O2SAT 96
[2022-06-01 20:00] VITALS: BP 143/64; PULSE 85; RESP 19; TEMP 36.9; O2SAT 97
[2022-06-02] VITALS (8 sets, daily range): BP systolic 147–192; BP diastolic 59–78; PULSE 63–75; RESP 16–18; TEMP 36.6–36.8; O2SAT 91–98
[2022-06-02] MEDS: piperacillin-tazobactam 3.375 GM in sodium chloride 0.9% (plus) 50 ML IV (04:07)
[2022-06-02 05:34] LABS: Basophils % 0.2 %; Eosinophils # 0.1 10^3/uL (0.0-0.8); Eosinophils % 2.5 %; Hematocrit 24.5 % (42.0-52.0); Hemoglobin 8.7 g/dL (11.7-16.6); Lymphocytes # 0.7 10^3/uL (0.8-4.8); Lymphocytes % 13.9 %; Mean Corpuscular HGB Conc 35.5 g/dL (30.0-36.0); Mean Corpuscular Hemoglobin 34.5 pg (28.0-34.0); Mean Corpuscular Volume 97.2 fl (80-94); Mean Platelet Volume 10.2 fL (7.4-10.4); Monocytes # 0.7 10^3/uL (0.2-0.9); Monocytes % 12.9 %; Neutrophils # 3.46 10^3/uL (1.8-7.7); Neutrophils % 67.6 %; Nucleated Red Blood Cells % 0.4 %; Platelet Count 170 10^3/cmm (130-400); Red Blood Count 2.52 10^6/uL (4.1-5.3); Red Cell Distribution Width 15.7 % (12.1-15.1); White Blood Count 5.1 10^3/uL (4.0-10.0)
[2022-06-02 05:54] LABS: Alanine Aminotransferase 25 U/L (0-41); Alkaline Phosphatase 85 IU/L (40-130); Anion Gap 11.8 (5-19); Aspartate Amino Transferase 37 U/L (0-40); Blood Urea Nitrogen 13 mg/dL (8-23); Calcium 8.7 mg/dL (8.5-10.5); Carbon Dioxide 28 mmol/L (22-29); Chloride 109 mmol/L (98-107); Globulin 2.5 g/dL (1.3-4.6); Glucose 97 mg/dL (65-115); Magnesium 1.9 mg/dL (1.7-2.3); Osmolality Calculated 300 mOsm/kg (285-295); Phosphorus 3.3 mg/dL (2.5-4.5); Potassium 3.8 mmol/L (3.5-5.1); Sodium 145 mmol/L (136-145); Total Bilirubin 0.8 mg/dL (0.15-1.2); Total Protein 5.5 g/dL (6.6-8.7)
[2022-06-02] MEDS: pantoprazole 40 mg SDV IVP ×2 (06:26→18:14)
[2022-06-02] MEDS: sucralfate 1 gm Tablet PO ×4 (07:14→20:17)
[2022-06-02] MEDS: cloNIDine 0.1 mg Tablet PO ×2 (09:13→18:14)
[2022-06-02] MEDS: levothyroxine 125 mcg Tablet PO (09:13)
[2022-06-02] MEDS: nicotine 21 mg Patch 1 PATCH TRANSDERMA (09:13)
[2022-06-02] MEDS: folic acid 1 mg Tablet PO (09:13)
[2022-06-02] MEDS: multivitamin therapeutic Tablet 1 TAB PO (09:14)
[2022-06-02] MEDS: thiamine 100 mg Tablet PO (09:14)
[2022-06-02] MEDS: aspirin 325 mg Tablet PO (09:14)
--- NOTE | 2022-06-02 14:04 | P.PN_ITS ---
Subjective Subjective: Patient was seen this morning he is alert to person, not to place, not to time, he wants to get up out of bed, nursing staff have advised that he did not eat much of his breakfast this morning, nor did eat breakfast yesterday, he did have dinner Vitals/I&O/Wt Last Vital Signs Temp 97.9 F 06/02/22 12:00 Pulse 67 06/02/22 12:00 Resp 17 06/02/22 12:00 BP 189/68 06/02/22 12:00 Pulse Ox 95 06/02/22 12:00 06/01/22 06/02/22 06/02/22 22:59 06:59 14:59 Intake Total 50 / 100 50 / 150 50 / 50 Balance 50 / 100 50 / 150 50 / 50 Physical Exam Const: COMMON NORMALS: no acute distress EXAM LIMITATIONS: altered mental status ORIENTATION/CONSCIOUSNESS: Yes awake and Yes oriented to person; not oriented to place and not oriented to time Resp: COMMON NORMALS: normal respiratory effort, No retractions, No use of accessory muscles and clear to auscultation bilaterally AUSCULTATION: clear to auscultation bilaterally Cardio: COMMON NORMALS: regular rate, regular rhythm, S1 normal heart sound present and S2 normal heart sound present RATE: regular rate RHYTHM: regular rhythm HEART SOUNDS: S1 normal heart sound present and S2 normal heart sound present GI: COMMON NORMALS: Normal to inspection, nondistended, normoactive bowel so unds present, Soft to palpation and non-tender PALPATION: Yes Soft to pal pation Extremity: COMMON NORMALS: no pedal edema Neuro: SENSORIUM/ORIENTATION: Yes oriented to person, No oriented to place and No oriented to time Psych: COMMON NORMALS: mental status grossly normal Urinary Catheter Management: Asencio: Cath Placed During This Visit: yes, but has since been removed by the nurse Reason for Continuing Indwelling Catheter: Acute Urinary Retention or Obstruction Urinary Catheter Date of Insertion: 05/27/22 Urinary Catheter Time of Insertion: 21:00 Date Urinary Catheter Removed: 05/29/22 Time Urinary Catheter Discontinued: 17:35 Suprapubic: Cath Placed During This Visit: yes Reason for Continuing Indwelling Catheter: Required Immobilization for Trauma or Surgery or Anesthesia Urinary Catheter Date of Insertion: 05/29/22 Data : 06/02/22 04:26 07/02/22 04:26 A&P Assessment and plan (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 Discussed with his . He states that he drinks quite heavily, and otherwise functional decline, with frequent memory lapses, but has been able to drive himself to the hospital, although recently he been more confused. Per ER report driving aimlessly around town. At the current time he is not able to make safe decisions regarding his care or decision to leave the hospital. Will request one-to-one sitter as he is at risk of wandering or leaving in his confused state, with risk to himself and others if he leaves the hospital including getting lost or injured, or driving again with risk of MVA. Thiamine, folic acid, and VT replacement. Benzodiazepines with [facility] protocol for possibility of withdrawal. Monitor mentation, currently alert to person, not to place, not to time PT, OT assessment Case management consultation. Status: Acute (2) Hyponatremia: Received IV hydration at [facility]. Here sodium is 134. Continue with NaCl tablets. Regular diet. Monitor sodium. Possible progression to liver cirrhosis. TSH is normal. Status: Acute (3) Cholestasis: Possible progression to liver cirrhosis. Possible alcoholic hepatitis. Will check INR to allow Madrey discriminant calculation. Additional assessment by hepatobiliary ultrasound. No abdominal pain. He is afebrile, without leukocytosis or sign of infection. Status: Acute (4) Alcoholic hepatitis: Hyperbilirubinemia, alk phos elevation. Per his drinks heavily. INR within normal limits Status: Acute (5) Alcoholism: With concern for progression to Warnicke encephalopathy. Status: Acute (6) Atrial fibrillation: Metoprolol held Status: Acute (7) S/P AVR (aortic valve replacement): Aspirin currently on hold Status: Acute (8) Hypothyroidism: TSH is normal. Levothyroxine. Status: Acute (9) Hematuria: Status: Acute (10) Bradycardia: Status: Acute (11) Alcohol withdrawal delirium: - [facility] protocol as above Status: Acute Plan Alcohol withdrawal, with delirium, out of alcohol withdrawal window Warnicke's encephalopathy/Korsakoff syndrome CT of the head shows -Brain: There is diffuse cerebral atrophy and chronic microvascular white matter disease. There is no acute intracranial hemorrhage. Cerebral ventricles: There is moderate ex vacuo dilation of the lateral ventricles. Basal cisterns are unremarkable. Paranasal sinuses: Right frontal sinus is opacified. Paranasal sinuses otherwise clear. Mastoid air cells: The mastoid air cells are clear. Bones/joints: The calvarium is intact. Soft tissues: The visible extracranial soft tissues are unremarkable. -MRI brain ordered -Alert to person, not to place, not to time, does not know his birthdate, does not know where he was born, -Has short-term memory loss, long-term memory loss -Also seems to confabulate, coming up with stories due to gaps in his memory -Given his current condition, I am concerned about him going home without appropriate assistance -Patient wants to go home -He has a history of leaving AGAINST MEDICAL ADVICE -Patient's wants him at a [facility], they want to pursue guardianship if possible -Currently on concerned that he does not have capacity to make decisions -I Have Consulted Psychiatry, 96-hour hold ordered -Family is working on guardianship through external vice president of talent management Acute anemia -Hemoglobin 8.7 -Has received 2 unit PRBC -He does not have any blood or black stools, does have some left flank, and left thigh bruising from fall -Abdominal CT negative for any significant retroperitoneal bleed -Likely multifactorial from alcoholism, hematuria from pulling his Asencio catheter, possible slow GI bleed -Protonix, Carafate -Monitor hemoglobin Hematuria -Patient was pulling on his Asencio catheter 05/28/2022 -Developed hematuria, aspirin held, has not received anticoagulants, INR within normal limits -Started on continuous bladder irrigation, continue to have bloody urine output -Traumatic hematuria, urethral trauma -Status post suprapubic catheter placement for urethral trauma -ct scan shows -1.? Abnormally positioned Asencio catheter. Asencio catheter balloon is distended at the junction of the bulbous and penile urethra. Recommend decompression of the balloon before repositioning. Asencio catheter needs to be advanced into the urinary bladder. 2.? Urinary bladder continues to be distended with urine and now has air which is probably related to the insertion of the Asencio catheter. 3.? Perinephric renal stranding with no renal obstruction, calcification or mass. 4.? Atherosclerosis aorta. -Monitor suprapubic catheter -Urology on consult Bradycardia -Has atrial fibrillation -Beta-shayne held -Serial EKGs, serial troponins, telemetry monitoring -Possible sinus node dysfunction related to alcoholism -We will continue to monitor Right forehead contusion: Denies pain. No acute intracranial abnormality on CT head. Opacification of the right frontal sinus. Probable chronic sinusitis. Lower extremity chronic venous stasis: Compression wraps bilateral lower extremities. He apparently goes to wound care clinic where these are managed for him. We do not have time at this time to unwrap them to more closely exami ne, please do so at next opportunity. History of colon cancer, previously on palliative treatment, then with just monitoring due to refusal of follow-up surveillance colonoscopy. 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
[2022-06-02] MEDS: dextrose 5%-sod chloride 0.9% 1,000 ML 75 ML IV (16:16)
[2022-06-03] VITALS (9 sets, daily range): BP systolic 111–169; BP diastolic 58–77; PULSE 51–70; RESP 14–17; TEMP 36.6–37.3; O2SAT 93–97
[2022-06-03 05:28] LABS: Basophils % 0.4 %; Eosinophils # 0.2 10^3/uL (0.0-0.8); Eosinophils % 3.5 %; Hematocrit 24.6 % (42.0-52.0); Hemoglobin 8.5 g/dL (11.7-16.6); Lymphocytes # 0.9 10^3/uL (0.8-4.8); Lymphocytes % 15.7 %; Mean Corpuscular HGB Conc 34.6 g/dL (30.0-36.0); Mean Corpuscular Hemoglobin 33.9 pg (28.0-34.0); Mean Platelet Volume 10.6 fL (7.4-10.4); Monocytes # 0.6 10^3/uL (0.2-0.9); Monocytes % 10.4 %; Neutrophils # 3.71 10^3/uL (1.8-7.7); Neutrophils % 67.6 %; Nucleated Red Blood Cells % 0 %; Platelet Count 179 10^3/cmm (130-400); Red Blood Count 2.51 10^6/uL (4.1-5.3); Red Cell Distribution Width 15.8 % (12.1-15.1); White Blood Count 5.5 10^3/uL (4.0-10.0)
[2022-06-03 05:53] LABS: Alanine Aminotransferase 23 U/L (0-41); Albumin Level 3.1 g/dL (3.5-5.2); Alkaline Phosphatase 77 IU/L (40-130); Anion Gap 13.4 (5-19); Aspartate Amino Transferase 31 U/L (0-40); Blood Urea Nitrogen 12 mg/dL (8-23); Calcium 8.6 mg/dL (8.5-10.5); Carbon Dioxide 25 mmol/L (22-29); Chloride 109 mmol/L (98-107); Globulin 2.4 g/dL (1.3-4.6); Glucose 121 mg/dL (65-115); Magnesium 1.7 mg/dL (1.7-2.3); Osmolality Calculated 299 mOsm/kg (285-295); Phosphorus 3.2 mg/dL (2.5-4.5); Potassium 3.4 mmol/L (3.5-5.1); Sodium 144 mmol/L (136-145); Total Bilirubin 0.5 mg/dL (0.15-1.2); Total Protein 5.5 g/dL (6.6-8.7)
[2022-06-03] MEDS: sucralfate 1 gm Tablet PO ×3 (06:36→20:55)
[2022-06-03] MEDS: pantoprazole 40 mg SDV IVP ×2 (06:36→17:59)
[2022-06-03] MEDS: dextrose 5%-sod chloride 0.9% 1,000 ML 75 ML IV ×2 (06:37→20:55)
[2022-06-03] MEDS: nicotine 21 mg Patch 1 PATCH TRANSDERMA (09:49)
[2022-06-03] MEDS: cloNIDine 0.1 mg Tablet PO ×2 (09:49→17:58)
[2022-06-03] MEDS: multivitamin therapeutic Tablet 1 TAB PO (09:49)
[2022-06-03] MEDS: thiamine 100 mg Tablet PO (09:50)
[2022-06-03] MEDS: folic acid 1 mg Tablet PO (09:50)
[2022-06-03] MEDS: levothyroxine 125 mcg Tablet PO (09:51)
[2022-06-03] MEDS: potassium chloride ER 20 mEq Tablet 40 MEQ PO (09:51)
[2022-06-03] MEDS: magnesium sulfate premix 2 GM/50 ML PIGGYBACK IV (09:51)
[2022-06-03] MEDS: phosphorus 250 mg Tablet PO ×2 (09:51→17:59)
[2022-06-03] MEDS: lisinopril 10 mg Tablet PO (09:51)
[2022-06-03] MEDS: aspirin 81 mg EC Tablet PO (09:51)
--- NOTE | 2022-06-03 14:55 | PM.PN ---
Subjective Subjective: Patient was seen this morning, he is much more alert, awake, is alert to person, to place, not to time, he is able to follow commands, he according to nursing staff he did eat dinner last night, had breakfast this morning, his appetite is improving Vitals/I&O/Wt Last Vital Signs Temp 99.2 F 06/03/22 11:45 Pulse 70 06/03/22 11:45 Resp 14 06/03/22 11:45 BP 111/58 06/03/22 11:45 Pulse Ox 95 06/03/22 11:45 06/02/22 06/03/22 06/03/22 22:59 06:59 14:59 Intake Total 480 / 850 1000 / 1850 410 / 410 Output Total 300 / 300 250 / 550 Balance 180 / 550 750 / 1300 410 / 410 Physical Exam Const: COMMON NORMALS: no acute distress OTHER: Alert to person, to place, not to time Resp: COMMON NORMALS: normal respiratory effort, No retractions, No use of accessory muscles and clear to auscultation bilaterally AUSCULTATION: clear to auscultation bilaterally Cardio: COMMON NORMALS: regular rate, regular rhythm, S1 normal heart sound present and S2 normal heart sound present RATE: regular rate RHYTHM: regular rhythm HEART SOUNDS: S1 normal heart sound present and S2 normal heart sound present GI: COMMON NORMALS: Normal to inspection, nondistended, normoactive bowel sounds present, Soft to palpation and non-tender PALPATION: Yes Soft to palpation Extremity: COMMON NORMALS: no clubbing, cyanosis or edema and no pedal edema Urinary Catheter Management: Asencio: Cath Placed During This Visit: yes, but has since been removed by the nurse Reason for Continuing Indwelling Catheter: Acute Urinary Retention or Obstruction Urinary Catheter Date of Insertion: 05/27/22 Urinary Catheter Time of Insertion: 21:00 Date Urinary Catheter Removed: 05/29/22 Time Urinary Catheter Discontinued: 17:35 Suprapubic: Cath Placed During This Visit: yes Reason for Continuing Indwelling Catheter: Other Urinary Catheter Date of Insertion: 05/29/22 Data : 06/03/22 04:22 06/03/22 04:22 A&P Assessment and plan (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 Discussed with his . He states that he drinks quite heavily, and otherwise functional decline, with frequent memory lapses, but has been able to drive himself to the hospital, although recently he been more confused. Per ER report driving aimlessly around town. At the current time he is not able to make safe decisions regarding his care or decision to leave the hospital. Will request one-to-one sitter as he is at risk of wandering or leaving in his confused state, with risk to himself and others if he leaves the hospital including getting lost or injured, or driving again with risk of MVA. Thiamine, folic acid, and VT replacement. Benzodiazepines with [facility] protocol for possibility of withdrawal. Monitor mentation, currently alert to person, not to place, not to time PT, OT assessment Case management consultation. Status: Acute (2) Hyponatremia: Received IV hydration at [facility]. Here sodium is 134. Continue with NaCl tablets. Regular diet. Monitor sodium. Possible progression to liver cirrhosis. TSH is normal. Status: Acute (3) Cholestasis: Possible progression to liver cirrhosis. Possible alcoholic hepatitis. Will check INR to allow Madrey discriminant calculation. Additional assessment by hepatobiliary ultrasound. No abdominal pain. He is afebrile, without leukocytosis or sign of infection. Status: Acute (4) Alcoholic hepatitis: Hyperbilirubinemia, alk phos elevation. Per his drinks heavily. INR within normal limits Status: Acute (5) Alcoholism: With concern for progression to Warnicke encephalopathy. Status: Acute (6) Atrial fibrillation: Metoprolol held Status: Acute (7) S/P AVR (aortic valve replacement): Aspirin currently on hold Status: Acute (8) Hypothyroidism: TSH is normal. Levothyroxine. Status: Acute (9) Hematuria: Status: Acute (10) Bradycardia: Status: Acute (11) Alcohol withdrawal delirium: - [facility] protocol as above Status: Acute Plan Alcohol withdrawal, with delirium, out of alcohol withdrawal window Warnicke's encephalopathy/Korsakoff syndrome CT of the head shows -Brain: There is diffuse cerebral atrophy and chronic microvascular white matter disease. There is no acute intracranial hemorrhage. Cerebral ventricles: There is moderate ex vacuo dilation of the lateral ventricles. Basal cisterns are unremarkable. Paranasal sinuses: Right frontal sinus is opacified. Paranasal sinuses otherwise clear. Mastoid air cells: The mastoid air cells are clear. Bones/joints: The calvarium is intact. Soft tissues: The visible extracranial soft tissues are unremarkable. -MRI brain ordered -Alert to person, not to place, not to time, does not know his birthdate, does not know where he was born, -Has short-term memory loss, long-term memory loss -Also seems to confabulate, coming up with stories due to gaps in his memory -Given his current condition, I am concerned about him going home without appropriate assistance -Patient wants to go home -He has a history of leaving AGAINST MEDICAL ADVICE -Patient's wants him at a intermediate, they want to pursue guardianship if possible -Currently on concerned that he does not have capacity to make decisions -I Have Consulted Psychiatry, 96-hour hold ordered -Family is working on guardianship through external broommaking supervisor Acute anemia -Hemoglobin 8.5 -Has received 2 unit PRBC -He does not have any blood or black stools, does have some left flank, and left thigh bruising from fall -Abdominal CT negative for any significant retroperitoneal bleed -Likely multifactorial from alcoholism, hematuria from pulling his Asencio catheter, possible slow GI bleed -Protonix, Carafate -Monitor hemoglobin Hematuria -Patient was pulling on his Asencio catheter 05/28/2022 -Developed hematuria, aspirin held, has not received anticoagulants, INR within normal limits -Started on continuous bladder irrigation, continue to have bloody urine output -Traumatic hematuria, urethral trauma -Status post suprapubic catheter placement for urethral trauma -ct scan shows -1.? Abnormally positioned Asencio catheter. Asencio catheter balloon is distended at the junction of the bulbous and penile urethra. Recommend decompression of the balloon before repositioning. Asencio catheter needs to be advanced into the urinary bladder. 2.? Urinary bladder continues to be distended with urine and now has air which is probably related to the insertion of the Asencio catheter. 3.? Perinephric renal stranding with no renal obstruction, calcification or mass. 4.? Atherosclerosis aorta. -Monitor suprapubic catheter -Urology on consult Bradycardia -Has atrial fibrillation -Beta-shayne held -Serial EKGs, serial troponins, telemetry monitoring -Possible sinus node dysfunction related to alcoholism -We will continue to monitor Right forehead contusion: Denies pain. No acute intracranial abnormality on CT head. Opacification of the right frontal sinus. Probable chronic sinusitis. Lower extremity chronic venous stasis: Compression wraps bilateral lower extremities. He apparently goes to wound care clinic where these are managed for him. We will unwrap History of colon cancer, previously on palliative treatment, then with just monitoring due to refusal of follow-up surveillance colonoscopy. Poor appetite, consult nutrition, dysphagia diet, protein shakes BPH GERD Senile debility Gait instability DVT prophylaxis held due to hematuria, anemia Full code Will replace electrolytes today, encourage p.o. 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
--- NOTE | 2022-06-03 15:42 | PC.SOCIAL ---
IMM UPDATED IMM dated and initialed and copy left in patients room
[2022-06-04 04:00] VITALS: BP 150/70; PULSE 60; RESP 17; TEMP 37; O2SAT 97
[2022-06-04 04:34] LABS: Basophils % 0.2 %; Eosinophils # 0.2 10^3/uL (0.0-0.8); Eosinophils % 2.7 %; Hematocrit 26.1 % (42.0-52.0); Hemoglobin 8.8 g/dL (11.7-16.6); Lymphocytes # 0.9 10^3/uL (0.8-4.8); Lymphocytes % 14.2 %; Mean Corpuscular HGB Conc 33.7 g/dL (30.0-36.0); Mean Corpuscular Hemoglobin 34.6 pg (28.0-34.0); Mean Corpuscular Volume 102.8 fl (80-94); Mean Platelet Volume 10.6 fL (7.4-10.4); Monocytes # 0.7 10^3/uL (0.2-0.9); Monocytes % 11.8 %; Neutrophils # 4.34 10^3/uL (1.8-7.7); Neutrophils % 69.8 %; Nucleated Red Blood Cells % 0 %; Platelet Count 172 10^3/cmm (130-400); Red Blood Count 2.54 10^6/uL (4.1-5.3); Red Cell Distribution Width 16.6 % (12.1-15.1); White Blood Count 6.2 10^3/uL (4.0-10.0)
[2022-06-04 05:04] LABS: Alanine Aminotransferase 18 U/L (0-41); Albumin Level 2.9 g/dL (3.5-5.2); Alkaline Phosphatase 76 IU/L (40-130); Anion Gap 9.9 (5-19); Aspartate Amino Transferase 24 U/L (0-40); Blood Urea Nitrogen 10 mg/dL (8-23); Calcium 8.5 mg/dL (8.5-10.5); Carbon Dioxide 27 mmol/L (22-29); Chloride 113 mmol/L (98-107); Globulin 2.5 g/dL (1.3-4.6); Glucose 125 mg/dL (65-115); Magnesium 1.9 mg/dL (1.7-2.3); Osmolality Calculated 303 mOsm/kg (285-295); Phosphorus 3.5 mg/dL (2.5-4.5); Potassium 3.9 mmol/L (3.5-5.1); Sodium 146 mmol/L (136-145); Total Bilirubin 0.4 mg/dL (0.15-1.2); Total Protein 5.4 g/dL (6.6-8.7)
[2022-06-04] MEDS: pantoprazole 40 mg SDV IVP ×2 (06:11→17:44)
[2022-06-04] MEDS: sucralfate 1 gm Tablet PO ×4 (06:11→20:29)
[2022-06-04 07:33] VITALS: BP 154/70; PULSE 59; RESP 18; O2SAT 94
[2022-06-04] MEDS: levothyroxine 125 mcg Tablet PO (08:34)
[2022-06-04] MEDS: cloNIDine 0.1 mg Tablet PO ×2 (08:34→17:44)
[2022-06-04] MEDS: thiamine 100 mg Tablet PO (08:34)
[2022-06-04] MEDS: multivitamin therapeutic Tablet 1 TAB PO (08:35)
[2022-06-04] MEDS: folic acid 1 mg Tablet PO (08:35)
[2022-06-04] MEDS: aspirin 81 mg EC Tablet PO (08:35)
[2022-06-04] MEDS: lisinopril 10 mg Tablet PO (08:36)
[2022-06-04] MEDS: nicotine 21 mg Patch 1 PATCH TRANSDERMA ×2 (08:47)
--- NOTE | 2022-06-04 10:54 | PM.PN ---
Subjective Subjective: Patient was seen this morning, he is alert to person, to place, he follows commands, he did not have much of his breakfast this morning, afebrile overnight, Vitals/I&O/Wt Last Vital Signs Temp 98.6 F 06/04/22 04:00 Pulse 59 L 06/04/22 07:33 Resp 18 06/04/22 07:33 BP 154/70 06/04/22 07:33 Pulse Ox 94 06/04/22 07:33 06/03/22 06/04/22 06/04/22 22:59 06:59 14:59 Intake Total 1120 / 1770 120 / 120 Output Total 450 / 450 Balance 1120 / 1770 -450 / 1320 120 / 120 Physical Exam Const: COMMON NORMALS: no acute distress EXAM LIMITATIONS: altered mental status ORIENTATION/CONSCIOUSNESS: Yes awake and Yes oriented to person Resp: COMMON NORMALS: normal respiratory effort, No retractions, No use of accessory muscles and clear to auscultation bilaterally AUSCULTATION: clear to auscultation bilaterally Cardio: COMMON NORMALS: regular rate, regular rhythm, S1 normal heart sound present and S2 normal heart sound present RATE: regular rate RHYTHM: regular rhythm HEART SOUNDS: S1 normal heart sound present and S2 normal heart sound present GI: COMMON NORMALS: Normal to inspection, nondistended, normoactive bowel sounds present, Soft to palpation and non-tender PALPATION: Yes Soft to palpation Extremity: COMMON NORMALS: no pedal edema Neuro: SENSORIUM/ORIENTATION: Yes oriented to person Urinary Catheter Management: Asencio: Cath Placed During This Visit: yes, but has since been removed by the nurse Reason for Continuing Indwelling Catheter: Acute Urinary Retention or Obstruction Urinary Catheter Date of Insertion: 05/27/22 Urinary Catheter Time of Insertion: 21:00 Date Urinary Catheter Removed: 05/29/22 Time Urinary Catheter Discontinued: 17:35 Suprapubic: Cath Placed During This Visit: yes Reason for Continuing Indwelling Catheter: Other Urinary Catheter Date of Insertion: 05/29/22 Data : 06/04/22 04:00 06/04/22 04:00 A&P Assessment and plan (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 Discussed with his . He states that he drinks quite heavily, and otherwise functional decline, with frequent memory lapses, but has been able to drive himself to the hospital, although recently he been more confused. Per ER report driving aimlessly around town. At the current time he is not able to make safe decisions regarding his care or decision to leave the hospital. Will request one-to-one sitter as he is at risk of wandering or leaving in his confused state, with risk to himself and others if he leaves the hospital including getting lost or injured, or driving again with risk of MVA. Thiamine, folic acid, and VT replacement. Benzodiazepines with [facility] protocol for possibility of withdrawal. Monitor mentation, currently alert to person, not to place, not to time PT, OT assessment Case management consultation. Status: Acute (2) Hyponatremia: Received IV hydration at [facility]. Here sodium is 134. Continue with NaCl tablets. Regular diet. Monitor sodium. Possible progression to liver cirrhosis. TSH is normal. Status: Acute (3) Cholestasis: Possible progression to liver cirrhosis. Possible alcoholic hepatitis. Will check INR to allow Madrey discriminant calculation. Additional assessment by hepatobiliary ultrasound. No abdominal pain. He is afebrile, without leukocytosis or sign of infection. Status: Acute (4) Alcoholic hepatitis: Hyperbilirubinemia, alk phos elevation. Per his drinks heavily. INR within normal limits Status: Acute (5) Alcoholism: With concern for progression to Warnicke encephalopathy. Status: Acute (6) Atrial fibrillation: Metoprolol held Status: Acute (7) S/P AVR (aortic valve replacement): Aspirin currently on hold Status: Acute (8) Hypothyroidism: TSH is normal. Levothyroxine. Status: Acute (9) Hematuria: Status: Acute (10) Bradycardia: Status: Acute (11) Alcohol withdrawal delirium: - CIWA protocol as above Status: Acute Plan Alcohol withdrawal, with delirium, out of alcohol withdrawal window Warnicke's encephalopathy/Korsakoff syndrome CT of the head shows -Brain: There is diffuse cerebral atrophy and chronic microvascular white matter disease. There is no acute intracranial hemorrhage. Cerebral ventricles: There is moderate ex vacuo dilation of the lateral ventricles. Basal cisterns are unremarkable. Paranasal sinuses: Right frontal sinus is opacified. Paranasal sinuses otherwise clear. Mastoid air cells: The mastoid air cells are clear. Bones/joints: The calvarium is intact. Soft tissues: The visible extracranial soft tissues are unremarkable. -MRI brain ordered -Alert to person, not to place, not to time, does not know his birthdate, does not know where he was born, -Has short-term memory loss, long-term memory loss -Also seems to confabulate, coming up with stories due to gaps in his memory -Given his current condition, I am concerned about him going home without appropriate assistance -Patient wants to go home -He has a history of leaving AGAINST MEDICAL ADVICE -Patient's wants him at a detention, they want to pursue guardianship if possible -Currently on concerned that he does not have capacity to make decisions -I Have Consulted Psychiatry, 96-hour hold ordered -Family is working on guardianship through external property disposal manager Acute anemia -Hemoglobin 8.8 -Has received 2 unit PRBC -He does not have any blood or black stools, does have some left flank, and left thigh bruising from fall -Abdominal CT negative for any significant retroperitoneal bleed -Likely multifactorial from alcoholism, hematuria from pulling his Asencio catheter, possible slow GI bleed -Protonix, Carafate -Monitor hemoglobin Hematuria -Patient was pulling on his Asencio catheter 05/28/2022 -Developed hematuria, aspirin held, has not received anticoagulants, INR within normal limits -Started on continuous bladder irrigation, continue to have bloody urine output -Traumatic hematuria, urethral trauma -Status post suprapubic catheter placement for urethral trauma -ct scan shows -1.? Abnormally positioned Asencio catheter. Asencio catheter balloon is distended at the junction of the bulbous and penile urethra. Recommend decompression of the balloon before repositioning. Asencio catheter needs to be advanced into the urinary bladder. 2.? Urinary bladder continues to be distended with urine and now has air which is probably related to the insertion of the Asencio catheter. 3.? Perinephric renal stranding with no renal obstruction, calcification or mass. 4.? Atherosclerosis aorta. -Monitor suprapubic catheter -Urology on consult Bradycardia -Has atrial fibrillation -Beta-shayne held -Serial EKGs, serial troponins, telemetry monitoring -Possible sinus node dysfunction related to alcoholism -We will continue to monitor Right forehead contusion: Denies pain. No acute intracranial abnormality on CT head. Opacification of the right frontal sinus. Probable chronic sinusitis. Lower extremity chronic venous stasis: Compression wraps bilateral lower extremities. He apparently goes to wound care clinic where these are managed for him. We will unwrap History of colon cancer, previously on palliative treatment, then with just monitoring due to refusal of follow-up surveillance colonoscopy. Poor appetite, consult nutrition, dysphagia diet, protein shakes BPH GERD Senile debility Gait instability DVT prophylaxis held due to hematuria, anemia Full code Will replace electrolytes today, encourage p.o. intake Attestations Medical Necessity Statement*: Patient requires hospitalization for Warnicke's encephalopathy Coding Level of Care Code Acute Leather Grainer for [facility] Fwd Diagnoses Wernickes encephalopathy E51.2 Hyponatremia E87.1 Cholestasis K83.1 Alcoholic hepatitis K70.10 Alcoholism F10.20 Atrial fibrillation I48.91 S/P AVR (aortic valve replacement) Z95.2 Hypothyroidism E03.9 Hematuria R31.9 Bradycardia R00.1 Alcohol withdrawal delirium F10.231
[2022-06-04] MEDS: dextrose 5%-sod chloride 0.9% 1,000 ML 75 ML IV (11:06)
[2022-06-04 11:44] VITALS: BP 143/72; PULSE 62; RESP 18; TEMP 36.7; O2SAT 95
[2022-06-04 15:31] VITALS: BP 142/80; PULSE 63; RESP 18; TEMP 36.7; O2SAT 96
[2022-06-04 17:44] VITALS: BP 142/80
[2022-06-04 19:46] VITALS: BP 136/78; PULSE 60; RESP 17; TEMP 36.6; O2SAT 94
[2022-06-05] VITALS (7 sets, daily range): BP systolic 124–147; BP diastolic 67–85; PULSE 59–79; RESP 16–18; TEMP 36.5–37.1; O2SAT 92–96
[2022-06-05 02:57] LABS: Basophils % 0.5 %; Eosinophils # 0.1 10^3/uL (0.0-0.8); Eosinophils % 2.2 %; Hematocrit 24.9 % (42.0-52.0); Hemoglobin 8.2 g/dL (11.7-16.6); Lymphocytes # 0.8 10^3/uL (0.8-4.8); Lymphocytes % 12.9 %; Mean Corpuscular HGB Conc 32.9 g/dL (30.0-36.0); Mean Corpuscular Hemoglobin 33.6 pg (28.0-34.0); Mean Platelet Volume 10.8 fL (7.4-10.4); Monocytes # 0.6 10^3/uL (0.2-0.9); Monocytes % 9.9 %; Neutrophils # 4.57 10^3/uL (1.8-7.7); Neutrophils % 73.1 %; Nucleated Red Blood Cells % 0 %; Platelet Count 161 10^3/cmm (130-400); Red Blood Count 2.44 10^6/uL (4.1-5.3); Red Cell Distribution Width 16.7 % (12.1-15.1); White Blood Count 6.3 10^3/uL (4.0-10.0)
[2022-06-05 03:17] LABS: Alanine Aminotransferase 15 U/L (0-41); Albumin Level 2.9 g/dL (3.5-5.2); Alkaline Phosphatase 83 IU/L (40-130); Anion Gap 11.5 (5-19); Aspartate Amino Transferase 24 U/L (0-40); Blood Urea Nitrogen 9 mg/dL (8-23); Calcium 8.4 mg/dL (8.5-10.5); Carbon Dioxide 26 mmol/L (22-29); Chloride 112 mmol/L (98-107); Globulin 2.4 g/dL (1.3-4.6); Glucose 104 mg/dL (65-115); Magnesium 1.8 mg/dL (1.7-2.3); Osmolality Calculated 301 mOsm/kg (285-295); Phosphorus 3.2 mg/dL (2.5-4.5); Potassium 3.5 mmol/L (3.5-5.1); Sodium 146 mmol/L (136-145); Total Bilirubin 0.4 mg/dL (0.15-1.2); Total Protein 5.3 g/dL (6.6-8.7)
[2022-06-05] MEDS: pantoprazole 40 mg SDV IVP ×2 (06:15→18:18)
[2022-06-05] MEDS: sucralfate 1 gm Tablet PO ×3 (06:16→22:27)
[2022-06-05] MEDS: lisinopril 10 mg Tablet PO (08:46)
[2022-06-05] MEDS: cloNIDine 0.1 mg Tablet PO ×2 (08:46→18:18)
[2022-06-05] MEDS: multivitamin therapeutic Tablet 1 TAB PO (08:46)
[2022-06-05] MEDS: thiamine 100 mg Tablet PO (08:46)
[2022-06-05] MEDS: aspirin 81 mg EC Tablet PO (08:46)
[2022-06-05] MEDS: folic acid 1 mg Tablet PO (08:46)
[2022-06-05] MEDS: nicotine 21 mg Patch 1 PATCH TRANSDERMA (08:47)
[2022-06-05] MEDS: levothyroxine 125 mcg Tablet PO (08:47)
--- NOTE | 2022-06-05 12:50 | P.PN_ITS ---
Subjective Subjective: Patient was seen this morning, he sitting up in a chair, physical therapy is working with him, he is alert to person, not to place, he knows it is a 7-month, he does not know the year, he does follow commands is quite, withdrawn Vitals/I&O/Wt Last Vital Signs Temp 98.0 F 06/05/22 12:00 Pulse 69 06/05/22 12:00 Resp 18 06/05/22 12:00 BP 124/75 06/05/22 12:00 Pulse Ox 96 06/05/22 12:00 06/04/22 06/05/22 06/05/22 22:59 06:59 14:59 Intake Total 240 / 1480 549 / 2029 600 / 600 Output Total 380 / 380 Balance 240 / 1480 169 / 1649 600 / 600 Physical Exam Const: COMMON NORMALS: no acute distress OTHER: Alert to person, not to place, not to time Resp: COMMON NORMALS: normal respiratory effort, No retractions, No use of accessory muscles and clear to auscultation bilaterally AUSCULTATION: clear to auscultation bilaterally Cardio: COMMON NORMALS: regular rate, regular rhythm, S1 normal heart sound present and S2 normal heart sound present RATE: regular rate RHYTHM: regular rhythm HEART SOUNDS: S1 normal heart sound present and S2 normal heart sound present GI: COMMON NORMALS: Normal to inspection, nondistended, normoactive bowel sounds present, Soft to palpation and non-tender PALPATION: Yes Soft to palpation Extremity: COMMON NORMALS: no pedal edema Urinary Catheter Management: Asencio: Cath Placed During This Visit: yes, but has since been removed by the nurse Reason for Continuing Indwelling Catheter: Acute Urinary Retention or Obstruction Urinary Catheter Date of Insertion: 05/27/22 Urinary Catheter Time of Insertion: 21:00 Date Urinary Catheter Removed: 05/29/22 Time Urinary Catheter Discontinued: 17:35 Suprapubic: Cath Placed During This Visit: yes Reason for Continuing Indwelling Catheter: Acute Urinary Retention or Obstruction Urinary Catheter Date of Insertion: 05/29/22 Data : 06/05/22 02:32 06/05/22 02:32 A&P Assessment and plan (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 Discussed with his . He states that he drinks quite heavily, and otherwise functional decline, with frequent memory lapses, but has been able to drive himself to the hospital, although recently he been more confused. Per ER report driving aimlessly around town. At the current time he is not able to make safe decisions regarding his care or decision to leave the hospital. Will request one-to-one sitter as he is at risk of wandering or leaving in his confused state, with risk to himself and others if he leaves the hospital in cluding getting lost or injured, or driving again with risk of MVA. Thiamine, folic acid, and VT replacement. Benzodiazepines with [facility] protocol for possibility of withdrawal. Monitor mentation, currently alert to person, not to place, not to time PT, OT assessment Case management consultation. Status: Acute (2) Hyponatremia: Received IV hydration at [facility]. Here sodium is 134. Continue with NaCl tablets. Regular diet. Monitor sodium. Possible progression to liver cirrhosis. TSH is normal. Status: Acute (3) Cholestasis: Possible progression to liver cirrhosis. Possible alcoholic hepatitis. Will check INR to allow Madrey discriminant calculation. Additional assessment by hepatobiliary ultrasound. No abdominal pain. He is afebrile, without leukocytosis or sign of infection. Status: Acute (4) Alcoholic hepatitis: Hyperbilirubinemia, alk phos elevation. Per his drinks heavily. INR within normal limits Status: Acute (5) Alcoholism: With concern for progression to Warnicke encephalopathy. Status: Acute (6) Atrial fibrillation: Metoprolol held Status: Acute (7) S/P AVR (aortic valve replacement): Aspirin currently on hold Status: Acute (8) Hypothyroidism: TSH is normal. Levothyroxine. Status: Acute (9) Hematuria: Status: Acute (10) Bradycardia: Status: Acute (11) Alcohol withdrawal delirium: - CIWA protocol as above Status: Acute Plan Alcohol withdrawal, with delirium, out of alcohol withdrawal window Warnicke's encephalopathy/Korsakoff syndrome CT of the head shows -Brain: There is diffuse cerebral atrophy and chronic microvascular white matter disease. There is no acute intracranial hemorrhage. Cerebral ventricles: There is moderate ex vacuo dilation of the lateral ventricles. Basal cisterns are unremarkable. Paranasal sinuses: Right frontal sinus is opacified. Paranasal sinuses otherwise clear. Mastoid air cells: The mastoid air cells are clear. Bones/joints: The calvarium is intact. Soft tissues: The visible extracranial soft tissues are unremarkable. -MRI brain ordered -Alert to person, not to place, not to time, does not know his birthdate, does not know where he was born, -Has short-term memory loss, long-term memory loss -Also seems to confabulate, coming up with stories due to gaps in his memory -Given his current condition, I am concerned about him going home without appropriate assistance -Patient wants to go home -He has a history of leaving AGAINST MEDICAL ADVICE -Patient's wants him at a [facility], they want to pursue guardianship if possible -Currently on concerned that he does not have capacity to make decisions -I Have Consulted Psychiatry, 96-hour hold ordered -Family is working on guardianship through external timing adjuster Acute anemia -Hemoglobin 8.8 -Has received 2 unit PRBC -He does not have any blood or black stools, does have some left flank, and left thigh bruising from fall -Abdominal CT negative for any significant retroperitoneal bleed -Likely multifactorial from alcoholism, hematuria from pulling his Asencio catheter, possible slow GI bleed -Protonix, Carafate -Monitor hemoglobin Hematuria -Patient was pulling on his Asencio catheter 05/28/2022 -Developed hematuria, aspirin held, has not received anticoagulants, INR within normal limits -Started on continuous bladder irrigation, continue to have bloody urine output -Traumatic hematuria, urethral trauma -Status post suprapubic catheter placement for urethral trauma -ct scan shows -1.? Abnormally positioned Asencio catheter. Asencio catheter balloon is distended at the junction of the bulbous and penile urethra. Recommend decompression of the balloon before repositioning. Asencio catheter needs to be advanced into the urinary bladder. 2.? Urinary bladder continues to be distended with urine and now has air which is probably related to the insertion of the Asencio catheter. 3.? Perinephric renal stranding with no renal obstruction, calcification or mass. 4.? Atherosclerosis aorta. -Monitor suprapubic catheter -Urology on consult Bradycardia -Has atrial fibrillation -Beta-shayne held -Serial EKGs, serial troponins, telemetry monitoring -Possible sinus node dysfunction related to alcoholism -We will continue to monitor Right forehead contusion: Denies pain. No acute intracranial abnormality on CT head. Opacification of the right frontal sinus. Probable chronic sinusitis. Lower extremity chronic venous stasis: Compression wraps bilateral lower extremities. He apparently goes to wound care clinic where these are managed for him. We will unwrap History of colon cancer, previously on palliative treatment, then with just monitoring due to refusal of follow-up surveillance colonoscopy. Poor appetite, consult nutrition, dysphagia diet, protein shakes BPH GERD Senile debility Gait instability DVT prophylaxis held due to hematuria, anemia Full code Encourage p.o. intake, PT OT Attestations Medical Necessity Statement*: Patient requires hospitalization for Warnicke's encephalopathy, anemia Coding Level of Care Code Acute Mold Sheet Cleaner for g Fwd Diagnoses Wernickes encephalopathy E51.2 Hyponatremia E87.1 Cholestasis K83.1 Alcoholic hepatitis K70.10 Alcoholism F10.20 Atrial fibrillation I48.91 S/P AVR (aortic valve replacement) Z95.2 Hypothyroidism E03.9 Hematuria R31.9 Bradycardia R00.1 Alcohol withdrawal delirium F10.231
[2022-06-05] MEDS: dextrose 5%-sod chloride 0.9% 1,000 ML 75 ML IV (18:27)
[2022-06-06 03:46] LABS: Basophils % 0.4 %; Eosinophils # 0.2 10^3/uL (0.0-0.8); Eosinophils % 2.2 %; Hematocrit 23.2 % (42.0-52.0); Hemoglobin 7.8 g/dL (11.7-16.6); Lymphocytes # 0.7 10^3/uL (0.8-4.8); Lymphocytes % 9.9 %; Mean Corpuscular HGB Conc 33.6 g/dL (30.0-36.0); Mean Corpuscular Hemoglobin 33.8 pg (28.0-34.0); Mean Corpuscular Volume 100.4 fl (80-94); Monocytes # 0.6 10^3/uL (0.2-0.9); Monocytes % 8.1 %; Neutrophils # 5.72 10^3/uL (1.8-7.7); Neutrophils % 78.6 %; Nucleated Red Blood Cells % 0 %; Platelet Count 166 10^3/cmm (130-400); Red Blood Count 2.31 10^6/uL (4.1-5.3); Red Cell Distribution Width 16.7 % (12.1-15.1); White Blood Count 7.3 10^3/uL (4.0-10.0)
[2022-06-06 04:00] VITALS: BP 113/57; PULSE 66; RESP 17; TEMP 38.3; O2SAT 94
[2022-06-06 04:06] LABS: Alanine Aminotransferase 17 U/L (0-41); Albumin Level 2.7 g/dL (3.5-5.2); Alkaline Phosphatase 88 IU/L (40-130); Anion Gap 10.4 (5-19); Aspartate Amino Transferase 22 U/L (0-40); Blood Urea Nitrogen 10 mg/dL (8-23); Calcium 8.3 mg/dL (8.5-10.5); Carbon Dioxide 25 mmol/L (22-29); Chloride 114 mmol/L (98-107); Globulin 2.3 g/dL (1.3-4.6); Glucose 111 mg/dL (65-115); Magnesium 1.8 mg/dL (1.7-2.3); Osmolality Calculated 302 mOsm/kg (285-295); Phosphorus 3.5 mg/dL (2.5-4.5); Potassium 3.4 mmol/L (3.5-5.1); Sodium 146 mmol/L (136-145); Total Bilirubin 0.5 mg/dL (0.15-1.2)
[2022-06-06 07:19] VITALS: BP 128/54; PULSE 62; RESP 16; TEMP 36.8; O2SAT 93
[2022-06-06] MEDS: dextrose 5%-sod chloride 0.9% 1,000 ML 75 ML IV (07:45)
[2022-06-06 09:35] VITALS: BP 144/75
[2022-06-06] MEDS: magnesium lactate 84 mg Tablet PO (09:35)
[2022-06-06] MEDS: potassium chloride ER 20 mEq Tablet 40 MEQ PO (09:35)
[2022-06-06] MEDS: aspirin 81 mg EC Tablet PO (09:35)
[2022-06-06] MEDS: cyanocobalamin 1,000 mcg Tablet 1000 MCG PO (09:35)
[2022-06-06] MEDS: cloNIDine 0.1 mg Tablet PO ×2 (09:35→17:29)
[2022-06-06] MEDS: thiamine 100 mg Tablet PO (09:35)
[2022-06-06] MEDS: folic acid 1 mg Tablet PO (09:35)
[2022-06-06] MEDS: lisinopril 10 mg Tablet PO (09:35)
[2022-06-06] MEDS: levothyroxine 125 mcg Tablet PO (09:35)
[2022-06-06 09:40] LABS: Vitamin B12 796 pg/mL (232-1245)
[2022-06-06] MEDS: nicotine 21 mg Patch 1 PATCH TRANSDERMA (09:43)
[2022-06-06] MEDS: multivitamin therapeutic Tablet 1 TAB PO (09:49)
[2022-06-06 11:22] VITALS: BP 102/64; PULSE 73; RESP 16; TEMP 36.4; O2SAT 97
--- NOTE | 2022-06-06 12:16 | P.PN_ITS ---
Subjective Medications: Medication Review Details: Patient was seen this morning, he is currently in a lifting belt, with physical therapy staff, he tells me he wants to go home, when asked why he tells me he has a lot of stuff to do at home, is but not very specific, asked him where he lives, he does not have a specific answer for me, I asked him where he his currently he just says [place], he tells me it is a 7-month, does not know the year, does not know the president, he can follow commands, Vitals/I&O/Wt Last Vital Signs Temp 97.6 F 06/06/22 11:22 Pulse 73 06/06/22 11:22 Resp 16 06/06/22 11:22 BP 102/64 06/06/22 11:22 Pulse Ox 97 06/06/22 11:22 06/05/22 06/06/22 06/06/22 22:59 06:59 14:59 Intake Total 1610.0 / 1610.0 Output Total 400 / 400 Balance -400 / 771 1610.0 / 1610.0 Physical Exam Const: COMMON NORMALS: no acute distress ORIENTATION/CONSCIOUSNESS: Yes awake and Yes oriented to person; not oriented to place and not oriented to time Resp: COMMON NORMALS: normal respiratory effort, No retractions, No use of accessory muscles and clear to auscultation bilaterally AUSCULTATION: clear to auscultation bilaterally Cardio: COMMON NORMALS: regular rate, regular rhythm, S1 normal heart sound present and S2 normal heart sound present RATE: regular rate RHYTHM: regular rhythm HEART SOUNDS: S1 normal heart sound present and S2 normal heart sound present GI: COMMON NORMALS: Normal to inspection, nondistended, normoactive bowel sounds present, Soft to palpation and non-tender PALPATION: Yes Soft to palpation Extremity: COMMON NORMALS: no pedal edema Neuro: SENSORIUM/ORIENTATION: Yes oriented to person, No oriented to place and No oriented to time Urinary Catheter Management: Asencio: Cath Placed During This Visit: yes, but has since been removed by the nurse Reason for Continuing Indwelling Catheter: Acute Urinary Retention or Obstruction Urinary Catheter Date of Insertion: 05/27/22 Urinary Catheter Time of Insertion: 21:00 Date Urinary Catheter Removed: 05/29/22 Time Urinary Catheter Discontinued: 17:35 Suprapubic: Cath Placed During This Visit: yes Reason for Continuing Indwelling Catheter: Acute Urinary Retention or Obst ruction Urinary Catheter Date of Insertion: 05/29/22 Data : 06/06/22 03:23 06/06/22 03:23 A&P Assessment and plan (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 Discussed with his . He states that he drinks quite heavily, and otherwise functional decline, with frequent memory lapses, but has been able to drive himself to the hospital, although recently he been more confused. Per ER report driving aimlessly around town. At the current time he is not able to make safe decisions regarding his care or decision to leave the hospital. Will request one-to-one sitter as he is at risk of wandering or leaving in his confused state, with risk to himself and others if he leaves the hospital including getting lost or injured, or driving again with risk of MVA. Thiamine, folic acid, and VT replacement. Benzodiazepines with CIWA protocol f or possibility of withdrawal. Monitor mentation, currently alert to person, not to place, not to time PT, OT assessment Case management consultation. Status: Acute (2) Hyponatremia: Received IV hydration at [facility]. Here sodium is 134. Continue with NaCl tablets. Regular diet. Monitor sodium. Possible progression to liver cirrhosis. TSH is normal. Status: Acute (3) Cholestasis: Possible progression to liver cirrhosis. Possible alcoholic hepatitis. Will check INR to allow Madrey discriminant calculation. Additional assessment by hepatobiliary ultrasound. No abdominal pain. He is afebrile, without leukocytosis or sign of infection. Status: Acute (4) Alcoholic hepatitis: Hyperbilirubinemia, alk phos elevation. Per his drinks heavily. INR within normal limits Status: Acute (5) Alcoholism: With concern for progression to Warnicke encephalopathy. Status: Acute (6) Atrial fibrillation: Metoprolol held Status: Acute (7) S/P AVR (aortic valve replacement): Aspirin currently on hold Status: Acute (8) Hypothyroidism: TSH is normal. Levothyroxine. Status: Acute (9) Hematuria: Status: Acute (10) Bradycardia: Status: Acute (11) Alcohol withdrawal delirium: - CIWA protocol as above Status: Acute Plan Alcohol withdrawal, with delirium, out of alcohol withdrawal window Warnicke's encephalopathy/Korsakoff syndrome CT of the head shows -Brain: There is diffuse cerebral atrophy and chronic microvascular white matter disease. There is no acute intracranial hemorrhage. Cerebral ventricles: There is moderate ex vacuo dilation of the lateral ventricles. Basal cisterns are unremarkable. Paranasal sinuses: Right frontal sinus is opacified. Paranasal sinuses otherwise clear. Mastoid air cells: The mastoid air cells are clear. Bones/joints: The calvarium is intact. Soft tissues: The visible extracranial soft tissues are unremarkable. -MRI brain ordered -Alert to person, not to place, not to time -More alert, awake, working with physical therapy today -Has short-term memory loss, long-term memory loss -Also seems to confabulate, coming up with stories due to gaps in his memory -Given his current condition, I am concerned about him going home without appropriate assistance -Patient wants to go home -He has a history of leaving AGAINST MEDICAL ADVICE -Patient's wants him at a penitentiary, they want to pursue guardianship if possible -Currently on concerned that he does not have capacity to make decisions -I Have Consulted Psychiatry, 96-hour hold ordered -Family is working on guardianship through external typesetting machine tender -Currently has been assigned to a local penitentiary Acute anemia -Hemoglobin seven-point -Has received 2 unit PRBC -He does not have any blood or black stools, does have some left flank, and left thigh bruising from fall -Abdominal CT negative for any significant retroperitoneal bleed -Likely multifactorial from alcoholism, hematuria from pulling his Asencio catheter, possible slow GI bleed -Protonix, Carafate -B12, thiamine, folic acid -Monitor hemoglobin Hematuria -Patient was pulling on his Asencio catheter 05/28/2022 -Developed hematuria, aspirin held, has not received anticoagulants, INR within normal limits -Started on continuous bladder irrigation, continue to have bloody urine output -Traumatic hematuria, urethral trauma -Status post suprapubic catheter placement for urethral trauma -ct scan shows -1.? Abnormally positioned Asencio catheter. Asencio catheter balloon is distended at the junction of the bulbous and penile urethra. Recommend decompression of the balloon before repositioning. Asencio catheter needs to be advanced into the urinary bladder. 2.? Urinary bladder continues to be distended with urine and now has air which is probably related to the insertion of the Asencio catheter. 3.? Perinephric renal stranding with no renal obstruction, calcification or mass. 4.? Atherosclerosis aorta. -Monitor suprapubic catheter -Urology on consult Bradycardia -Has atrial fibrillation -Beta-shayne held -Serial EKGs, serial troponins, telemetry monitoring -Possible sinus node dysfunction related to alcoholism -We will continue to monitor Right forehead contusion: Denies pain. No acute intracranial abnormality on CT head. Opacification of the right frontal sinus. Probable chronic sinusitis. Lower extremity chronic venous stasis: Compression wraps bilateral lower extremities. He apparently goes to wound care clinic where these are managed for him. We will unwrap History of colon cancer, previously on palliative treatment, then with just monitoring due to refusal of follow-up surveillance colonoscopy. Poor appetite, consult nutrition, dysphagia diet, protein shakes BPH GERD Senile debility Gait instability DVT prophylaxis held due to hematuria, anemia Full code Encourage p.o. 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 Fwd Diagnoses Wernickes encephalopathy E51.2 Hyponatremia E87.1 Cholestasis K83.1 Alcoholic hepatitis K70.10 Alcoholism F10.20 Atrial fibrillation I48.91 S/P AVR (aortic valve replacement) Z95.2 Hypothyroidism E03.9 Hematuria R31.9 Bradycardia R00.1 Alcohol withdrawal delirium F10.231
[2022-06-06] MEDS: sucralfate 1 gm Tablet PO ×3 (13:33→20:56)
[2022-06-06 15:59] VITALS: BP 128/59; PULSE 58; RESP 16; TEMP 36.6; O2SAT 98
[2022-06-07] VITALS (9 sets, daily range): BP systolic 122–169; BP diastolic 56–70; PULSE 52–82; RESP 16–19; TEMP 36.3–37.2; O2SAT 69–99
[2022-06-07 05:06] LABS: Basophils % 0.3 %; Eosinophils # 0.2 10^3/uL (0.0-0.8); Hematocrit 22.6 % (42.0-52.0); Hemoglobin 7.5 g/dL (11.7-16.6); Lymphocytes # 0.8 10^3/uL (0.8-4.8); Lymphocytes % 11.7 %; Mean Corpuscular HGB Conc 33.2 g/dL (30.0-36.0); Mean Corpuscular Hemoglobin 33.6 pg (28.0-34.0); Mean Corpuscular Volume 101.3 fl (80-94); Mean Platelet Volume 10.9 fL (7.4-10.4); Monocytes # 0.6 10^3/uL (0.2-0.9); Monocytes % 8.5 %; Neutrophils # 4.99 10^3/uL (1.8-7.7); Neutrophils % 75.7 %; Nucleated Red Blood Cells % 0 %; Platelet Count 171 10^3/cmm (130-400); Red Blood Count 2.23 10^6/uL (4.1-5.3); Red Cell Distribution Width 16.7 % (12.1-15.1); White Blood Count 6.6 10^3/uL (4.0-10.0)
[2022-06-07 05:31] LABS: Alanine Aminotransferase 13 U/L (0-41); Albumin Level 2.8 g/dL (3.5-5.2); Alkaline Phosphatase 95 IU/L (40-130); Anion Gap 11.9 (5-19); Aspartate Amino Transferase 19 U/L (0-40); Blood Urea Nitrogen 10 mg/dL (8-23); Calcium 8.3 mg/dL (8.5-10.5); Carbon Dioxide 25 mmol/L (22-29); Chloride 113 mmol/L (98-107); Globulin 2.4 g/dL (1.3-4.6); Glucose 91 mg/dL (65-115); Magnesium 1.8 mg/dL (1.7-2.3); Osmolality Calculated 301 mOsm/kg (285-295); Potassium 3.9 mmol/L (3.5-5.1); Sodium 146 mmol/L (136-145); Total Bilirubin 0.5 mg/dL (0.15-1.2); Total Protein 5.2 g/dL (6.6-8.7)
[2022-06-07] MEDS: multivitamin therapeutic Tablet 1 TAB PO (08:42)
[2022-06-07] MEDS: aspirin 81 mg EC Tablet PO (08:42)
[2022-06-07] MEDS: cloNIDine 0.1 mg Tablet PO ×2 (08:43→17:53)
[2022-06-07] MEDS: cyanocobalamin 1,000 mcg Tablet 1000 MCG PO (08:43)
[2022-06-07] MEDS: lisinopril 10 mg Tablet PO (08:43)
[2022-06-07] MEDS: thiamine 100 mg Tablet PO (08:43)
[2022-06-07] MEDS: levothyroxine 125 mcg Tablet PO (08:44)
[2022-06-07] MEDS: folic acid 1 mg Tablet PO (08:44)
[2022-06-07] MEDS: nicotine 21 mg Patch 1 PATCH TRANSDERMA (08:44)
[2022-06-07] MEDS: magnesium lactate 84 mg Tablet PO (08:46)
[2022-06-07] MEDS: FUROsemide 10 mg/mL SDV 4mL 40 MG IVP (09:15)
--- NOTE | 2022-06-07 09:30 | MRR_ITS ---
PROCEDURE INFORMATION: Exam: MR Head Without Contrast Exam date and time: 06/07/2022 5:17 PM Age: 81 years old Clinical indication: Altered mental status/memory loss; Additional info: Encephalopathy, not done as of 06/05, order date modified TECHNIQUE: Imaging protocol: Magnetic resonance imaging of the head without contrast. COMPARISON: CT head wo con* [id number] 05/27/2022 6:30 PM FINDINGS: Brain: 5 x 4 mm punctate focus of decreased signal intensity on the gradient echo sequence in the subarachnoid space over the posterior right temporal lobe (series 701, image 17). No acute infarct. No intra-axial or extra-axial masses. No midline shift. Mayorga-white matter differentiation is unremarkable. Stable moderate atrophy of the brain parenchyma. Multiple areas of increased signal intensity on T2 and FLAIR in the deep white matter, consistent with moderate microangiopathic change. Normal flow voids are present. Seventh and eighth cranial nerve complexes are unremarkable. No evidence for Chiari 1 malformation. No evidence for mesial temporal sclerosis. Cerebral ventricles: No hydrocephalus. Bones/joints: Unremarkable. Paranasal sinuses: Mild mucoperiosteal thickening in the right frontal and right ethmoid sinuses.Mastoid air cells are clear bilaterally. Mastoid air cells: See Paranasal sinuses finding. Orbital cavities: Globes and lenses, extraocular muscles, and optic nerves are intact bilaterally. No acute intraorbital abnormality. Soft tissues: No acute abnormality of the extracranial soft tissues. MR/MR head wo con* [id number] IMPRESSION: 1. 5 x 4 mm punctate focus of decreased signal intensity on the gradient echo sequence in the subarachnoid space over the posterior right temporal lobe. No abnormality was seen in this area on the prior CT scan, a focal subarachnoid hemorrhage cannot be ruled out. Alternatively, this could represent hemosiderin deposition. Noncontrast CT scan of the head is recommended for further evaluation. 2. Stable moderate atrophy of the brain parenchyma. 3. Moderate white matter microangiopathic change.
--- NOTE | 2022-06-07 11:59 | USR_ITS ---
PROCEDURE INFORMATION: Exam: US Duplex Right Upper Extremity Veins, Limited Exam date and time: 06/07/2022 4:41 PM Age: 81 years old Clinical indication: Swelling (edema) of limb; Upper extremity, right TECHNIQUE: Imaging protocol: Real-time Duplex ultrasound of the Right Upper Extremity with 2-D callahan scale, color Doppler flow and spectral waveform analysis with image documentation. Limited exam focused on the right upper extremity veins. COMPARISON: CTA Chest w Abd/Pel wwo 07/08/2020 8:59 AM FINDINGS: Right deep veins: Unremarkable. Axillary and brachial veins are patent throughout without thrombus. Normal Doppler waveforms. Normal compressibility and/or augmentation response. Visualized internal jugular and subclavian veins are patent. Right superficial veins: Superficial thrombus within the cephalic vein in the forearm. Soft tissues: Unremarkable. US/[place] [id number] IMPRESSION: Superficial thrombus within the cephalic vein in the forearm. No evidence of deep vein thrombosis.
--- NOTE | 2022-06-07 12:00 | P.PN_ITS ---
Subjective Subjective: Patient was seen this morning, he is alert to person, not to place, not to time, he does follow commands, he tells me that he wants to go home, he needs to pay the [employer], he tells me that his can do it, he needs to go home and take care of some things, but cannot tell me exactly what he needs to do, he denies any pain, no abdominal pain, no fevers, no chest pain, Vitals/I&O/Wt Last Vital Signs Temp 98.8 F 06/07/22 11:53 Pulse 64 06/07/22 11:53 Resp 18 06/07/22 11:53 BP 127/65 06/07/22 11:53 Pulse Ox 97 06/07/22 11:53 06/06/22 06/07/22 06/07/22 22:59 06:59 14:59 Intake Total 120 / 120 Output Total 200 / 200 Balance -200 / 1650.0 120 / 120 Physical Exam Const: COMMON NORMALS: no acute distress OTHER: Alert to person, not to place, not to time Resp: COMMON NORMALS: normal respiratory effort, No retractions, No use of accessory muscles and clear to auscultation bilaterally AUSCULTATION: clear to auscultation bilaterally Cardio: COMMON NORMALS: regular rate, regular rhythm, S1 normal heart sound present and S2 normal heart sound present RATE: regular rate RHYTHM: regular rhythm HEART SOUNDS: S1 normal heart sound present and S2 normal heart sound present GI: COMMON NORMALS: Normal to inspection, nondistended, normoactive bowel sounds present, Soft to palpation and non-tender PALPATION: Yes Soft to palpation Extremity: COMMON NORMALS: no calf tenderness NARRATIVE EXTREMITY EXAM: Right arm swelling Bilateral 2+ pitting edema Urinary Catheter Management: Asencio: Cath Placed During This Visit: yes, but has since been removed by the nurse Reason for Continuing Indwelling Catheter: Acute Urinary Retention or Obstruction Urinary Catheter Date of Insertion: 05/27/22 Urinary Catheter Time of Insertion: 21:00 Date Urinary Catheter Removed: 05/29/22 Time Urinary Catheter Discontinued: 17:35 Suprapubic: Cath Placed During This Visit: yes Reason for Continuing Indwelling Catheter: Acute Urinary Retention or Obstruction Urinary Catheter Date of Insertion: 05/29/22 Data : 06/07/22 04:59 06/07/22 04:59 A&P Assessment and plan (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 Discussed with his . He states that he drinks quite heavily, and otherwise functional decline, with frequent memory lapses, but has been able to drive himself to the hospital, although recently he been more confused. Per ER report driving aimlessly around town. At the current time he is not able to make safe decisions regarding his care or decision to leave the hospital. Will request one-to-one sitter as he is at risk of wandering or leaving in his confused state, with risk to himself and others if he leaves the hospital including getting lost or injured, or driving again with risk of MVA. Thiamine, folic acid, and VT replacement. Benzodiazepines with CIVA protocol for possibility of withdrawal. Monitor mentation, currently alert to person, not to place, not to time PT, OT assessment Case management consultation. Status: Acute (2) Hyponatremia: Received IV hydration at [facility]. Here sodium is 134. Continue with NaCl tablets. Regular diet. Monitor sodium. Possible progression to liver cirrhosis. TSH is normal. Status: Acute (3) Cholestasis: Possible progression to liver cirrhosis. Possible alcoholic hepatitis. Will check INR to allow Madrey discriminant calculation. Additional assessment by hepatobiliary ultrasound. No abdominal pain. He is afebrile, without leukocytosis or sign of infection. Status: Acute (4) Alcoholic hepatitis: Hyperbilirubinemia, alk phos elevation. Per his drinks heavily. INR within normal limits Status: Acute (5) Alcoholism: With concern for progression to Warnicke encephalopathy. Status: Acute (6) Atrial fibrillation: Metoprolol held Status: Acute (7) S/P AVR (aortic valve replacement): Aspirin currently on hold Status: Acute (8) Hypothyroidism: TSH is normal. Levothyroxine. Status: Acute (9) Hematuria: Status: Acute (10) Bradycardia: Status: Acute (11) Alcohol withdrawal delirium: - CIWA protocol as above Status: Acute Plan Alcohol withdrawal, with delirium, out of alcohol withdrawal window Warnicke's encephalopathy/Korsakoff syndrome CT of the head shows -Brain: There is diffuse cerebral atrophy and chronic microvascular white matter disease. There is no acute intracranial hemorrhage. Cerebral ventricles: There is moderate ex vacuo dilation of the lateral ventricles. Basal cisterns are unremarkable. Paranasal sinuses: Right frontal sinus is opacified. Paranasal sinuses otherwise clear. Mastoid air cells: The mastoid air cells are clear. Bones/joints: The calvarium is intact. Soft tissues: The visible extracranial soft tissues are unremarkable. -MRI brain ordered -Alert to person, not to place, not to time -More alert, awake, working with physical therapy today -Has short-term memory loss, long-term memory loss -Also seems to confabulate, coming up with stories due to gaps in his memory -Given his current condition, I am concerned about him going home without appropriate assistance -Patient wants to go home -He has a history of leaving AGAINST MEDICAL ADVICE -Patient's wants him at a [facility], they want to pursue guardianship if possible -Currently on concerned that he does not have capacity to make decisions -I Have Consulted Psychiatry, 96-hour hold ordered -Family is working on guardianship through external tone cabinet assembler -Currently has been accepted at a local [facility] Acute anemia -Hemoglobin 7.5 -Has received 2 unit PRBC -He does not have any blood or black stools, does have some left flank, and left thigh bruising from fall -Abdominal CT negative for any significant retroperitoneal bleed -Likely multifactorial from alcoholism, hematuria from pulling his Asencio catheter, possible slow GI bleed -Protonix, Carafate -B12, thiamine, folic acid -Monitor hemoglobin Hematuria -Patient was pulling on his Asencio catheter 05/28/2022 -Developed hematuria, aspirin held, has not received anticoagulants, INR within normal limits -Started on continuous bladder irrigation, continue to have bloody urine output -Traumatic hematuria, urethral trauma -Status post suprapubic catheter placement for urethral trauma -ct scan shows -1.? Abnormally positioned Asencio catheter. Asencio catheter balloon is distended at the junction of the bulbous and penile urethra. Recommend decompression of the balloon before repositioning. Asencio catheter needs to be advanced into the urinary bladder. 2.? Urinary bladder continues to be distended with urine and now has air which is probably related to the insertion of the Asencio catheter. 3.? Perinephric renal stranding with no renal obstruction, calcification or mass. 4.? Atherosclerosis aorta. -Monitor suprapubic catheter -Urology on consult Bradycardia -Has atrial fibrillation -Beta-shayne held -Serial EKGs, serial troponins, telemetry monitoring -Possible sinus node dysfunction related to alcoholism -We will continue to monitor Right forehead contusion: Denies pain. No acute intracranial abnormality on CT head. Opacification of the right frontal sinus. Probable chronic sinusitis. Lower extremity chronic venous stasis: Compression wraps bilateral lower extremities. He apparently goes to wound care clinic where these are managed for him. We will unwrap History of colon cancer, previously on palliative treatment, then with just monitoring due to refusal of follow-up surveillance colonoscopy. Poor appetite, consult nutrition, dysphagia diet, protein shakes BPH GERD Senile debility Gait instability Right arm swelling, venous ultrasound, Lasix Bilateral pitting edema, Lasix DVT prophylaxis held due to hematuria, anemia Full code Encourage p.o. intake, PT OT Attestations Medical Necessity Statement*: Patient requires hospitalization Warnicke's encephalopathy Coding Level of Care Code Acute School Treasurer for g Fwd Diagnoses Wernickes encephalopathy E51.2 Hyponatremia E87.1 Cholestasis K83.1 Alcoholic hepatitis K70.10 Alcoholism F10.20 Atrial fibrillation I48.91 S/P AVR (aortic valve replacement) Z95.2 Hypothyroidism E03.9 Hematuria R31.9 Bradycardia R00.1 Alcohol withdrawal delirium F10.231
[2022-06-07] MEDS: sucralfate 1 gm Tablet PO ×3 (12:06→19:51)
--- NOTE | 2022-06-07 16:49 | PC.SOCIAL ---
IMM Updated Updated pt's on IMM. No questions voiced. Provided pt a copy. Initialed, dated, & timed copy in chart.
[2022-06-07] MEDS: pantoprazole 40 mg SDV IVP (17:55)
--- NOTE | 2022-06-07 18:48 | CTR_ITS ---
PROCEDURE INFORMATION: Exam: CT Head Without Contrast Exam date and time: 06/07/2022 9:25 PM Age: 81 years old Clinical indication: Pain; Other: Rogers headache; Patient HX: Patient extremely kyphotic, best images obtained; Additional info: Futher evaluation mri follow up TECHNIQUE: Imaging protocol: Computed tomography of the head without contrast. Sagittal, oblique axial, and coronal reformatted images were created and reviewed. Radiation optimization: All CT scans at this facility use at least one of these dose optimization techniques: automated exposure control; mA and/or kV adjustment per patient size (includes targeted exams where dose is matched to clinical indication); or iterative reconstruction. COMPARISON: MR head wo con* [id number] 06/07/2022 5:17 PM RADIATION DOSE METRICS: Total DLP (mGy-cm): 1679.86 FINDINGS: Brain: No acute intracranial hemorrhage. No acute infarct. No intra-axial or extra-axial masses. Mayorga-white matter differentiation is preserved. No cerebral edema. No extra-axial fluid collections. No midline shift. No evidence for Chiari 1 malformation. Stable moderate atrophy of the brain parenchyma. Mildly decreased attenuation in the deep white matter, consistent with mild chronic microangiopathic change. Mildly decreased attenuation in the deep white matter, consistent with mild chronic microangiopathic change. Cerebral ventricles: No hydrocephalus. Paranasal sinuses: Visualized paranasal sinuses are clear. Mastoid air cells: Mastoid air cells are clear bilaterally. Orbital cavities: Globes and lenses, extraocular muscles, and optic nerves are intact bilaterally. No acute intraorbital abnormality. Nasal cavity: Mild right nasal septal deviation. Bones/joints: No acute fracture. Soft tissues: The extracranial soft tissues are unremarkable. Vasculature: Moderate atherosclerotic changes in the visualized arteries. CT/CT head wo con* [id number] IMPRESSION: 1. No acute abnormality of the brain. No evidence for hemorrhage to correspond to the finding on prior MRI. The finding on prior MRI likely represented an area of hemosiderin deposition. 2. Stable moderate atrophy of the brain parenchyma. 3. Mild chronic white matter microangiopathic change. 4. Incidental/nonacute findings are listed in the report.
--- NOTE | 2022-06-07 18:55 | PC.NURSE ---
call received from provider with instructions to order a CT head without contrast to follow MRI results
--- NOTE | 2022-06-07 21:51 | PC.NURSE ---
SENIOR MANUFACTURING ENGINEER called this RN to room. Reported when transferring pt from w/c (returning from CT) to bed caught his LLE on the foot peddle. Skin tear noted to LLE. Area cleansed with NS and patted dry. Covered with bandage. Pt denies c/o pain. glue makerStella, made aware.
[2022-06-08 06:07] VITALS: BP 125/77; PULSE 74; RESP 16; TEMP 37.7; O2SAT 95
[2022-06-08] MEDS: pantoprazole 40 mg SDV IVP (06:29)
[2022-06-08] MEDS: sucralfate 1 gm Tablet PO ×4 (06:29→20:03)
[2022-06-08 06:31] LABS: Basophils % 0.6 %; Eosinophils # 0.2 10^3/uL (0.0-0.8); Hematocrit 23.8 % (42.0-52.0); Hemoglobin 7.4 g/dL (11.7-16.6); Lymphocytes # 0.7 10^3/uL (0.8-4.8); Lymphocytes % 11.5 %; Mean Corpuscular HGB Conc 31.1 g/dL (30.0-36.0); Mean Corpuscular Hemoglobin 33.6 pg (28.0-34.0); Mean Corpuscular Volume 108.2 fl (80-94); Mean Platelet Volume 11.4 fL (7.4-10.4); Monocytes # 0.6 10^3/uL (0.2-0.9); Neutrophils % 75.3 %; Nucleated Red Blood Cells % 0 %; Platelet Count 172 10^3/cmm (130-400); Red Cell Distribution Width 16.7 % (12.1-15.1); White Blood Count 6.3 10^3/uL (4.0-10.0)
[2022-06-08 06:49] LABS: Alanine Aminotransferase 13 U/L (0-41); Albumin Level 2.7 g/dL (3.5-5.2); Alkaline Phosphatase 99 IU/L (40-130); Anion Gap 12.4 (5-19); Aspartate Amino Transferase 17 U/L (0-40); Blood Urea Nitrogen 11 mg/dL (8-23); Calcium 8.4 mg/dL (8.5-10.5); Carbon Dioxide 25 mmol/L (22-29); Chloride 110 mmol/L (98-107); Globulin 2.4 g/dL (1.3-4.6); Glucose 91 mg/dL (65-115); Magnesium 1.8 mg/dL (1.7-2.3); Osmolality Calculated 297 mOsm/kg (285-295); Potassium 3.4 mmol/L (3.5-5.1); Sodium 144 mmol/L (136-145); Total Bilirubin 0.5 mg/dL (0.15-1.2); Total Protein 5.1 g/dL (6.6-8.7)
[2022-06-08 07:58] VITALS: BP 113/54; PULSE 72; RESP 16; TEMP 37.2; O2SAT 97
--- NOTE | 2022-06-08 09:38 | PM.PN ---
Subjective Subjective: Patient was seen this morning, no acute confusion episodes overnight, he is alert to person, not to place, does know the year, does not know the president, he sitting up in a chair, he tells me he wants to go home, he as he has a lot of tasks to do at home, he tells me that he can arrange an Uber ride for someone to pick him up and bring him home, denies any bloody or black stools, denies any headache, no blurry vision, no focal weakness I discussed my concerns for his anemia, his bilateral fluid overload, his Warnicke encephalopathy, but he does not seem to understand the importance of diet, or understand the depth of information provided, he all he says he wants to go home Vitals/I&O/Wt Last Vital Signs Temp 99.0 F 06/08/22 07:58 Pulse 72 06/08/22 07:58 Resp 16 06/08/22 07:58 BP 113/54 06/08/22 07:58 Pulse Ox 97 06/08/22 07:58 06/07/22 06/08/22 06/08/22 22:59 06:59 14:59 Intake Total 480 / 720 120 / 120 Output Total 1100 / 1100 100 / 1200 Balance -620 / -380 -100 / -480 120 / 120 Physical Exam Const: COMMON NORMALS: no acute distress OTHER: Alert to person, to place Resp: COMMON NORMALS: normal respiratory effort, No retractions, No use of accessory muscles and clear to auscultation bilaterally AUSCULTATION: clear to auscultation bilaterally Cardio: COMMON NORMALS: regular rate, regular rhythm, S1 normal heart sound present and S2 normal heart sound present RATE: regular rate RHYTHM: regular rhythm HEART SOUNDS: S1 normal heart sound present and S2 normal heart sound present GI: COMMON NORMALS: Normal to inspection, nondistended, normoactive bowel sounds present, Soft to palpation, non-tender and No hepatosplenomegaly present PALPATION: Yes Soft to palpation and Yes No hepatosplenomegaly present Urinary Catheter Management: Asencio: Cath Placed During This Visit: yes, but has since been removed by the nurse Reason for Continuing Indwelling Catheter: Acute Urinary Retention or Obstruction Urinary Catheter Date of Insertion: 05/27/22 Urinary Catheter Time of Insertion: 21:00 Date Urinary Catheter Removed: 05/29/22 Time Urinary Catheter Discontinued: 17:35 Suprapubic: Cath Placed During This Visit: yes Reason for Continuing Indwelling Catheter: Acute Urinary Retention or Obstruction Urinary Catheter Date of Insertion: 05/29/22 Data : 06/08/22 06:07 06/08/22 06:07 A&P Assessment and plan (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 Discussed with his . He states that he drinks quite heavily, and otherwise functional decline, with frequent memory lapses, but has been able to drive himself to the hospital, although recently he been more confused. Per ER report driving aimlessly around town. At the current time he is not able to make safe decisions regarding his care or decision to leave the hospital. Will request one-to-one sitter as he is at risk of wandering or leaving in his confused state, with risk to himself and others if he leaves the hospital including getting lost or injured, or driving again with risk of MVA. Thiamine, folic acid, and VT replacement. Benzodiazepines with CIWA protocol for possibility of withdrawal. Monitor mentation, currently alert to person, not to place, not to time PT, OT assessment Case management consultation. Status: Acute (2) Hyponatremia: Received IV hydration at [facility]. Here sodium is 134. Continue with NaCl tablets. Regular diet. Monitor sodium. Possible progression to liver cirrhosis. TSH is normal. Status: Acute (3) Cholestasis: Possible progression to liver cirrhosis. Possible alcoholic hepatitis. Will check INR to allow Madrey discriminant calculation. Additional assessment by hepatobiliary ultrasound. No abdominal pain. He is afebrile, without leukocytosis or sign of infection. Status: Acute (4) Alcoholic hepatitis: Hyperbilirubinemia, alk phos elevation. Per his drinks heavily. INR within normal limits Status: Acute (5) Alcoholism: With concern for progression to Warnicke encephalopathy. Status: Acute (6) Atrial fibrillation: Metoprolol held Status: Acute (7) S/P AVR (aortic valve replacement): Aspirin currently on hold Status: Acute (8) Hypothyroidism: TSH is normal. Levothyroxine. Status: Acute (9) Hematuria: Status: Acute (10) Bradycardia: Status: Acute (11) Alcohol withdrawal delirium: - CIWA protocol as above Status: Acute Plan Alcohol withdrawal, with delirium, out of alcohol withdrawal window Warnicke's encephalopathy/Korsakoff syndrome CT of the head shows -Brain: There is diffuse cerebral atrophy and chronic microvascular white matter disease. There is no acute intracranial hemorrhage. Cerebral ventricles: There is moderate ex vacuo dilation of the lateral ventricles. Basal cisterns are unremarkable. Paranasal sinuses: Right frontal sinus is opacified. Paranasal sinuses otherwise clear. Mastoid air cells: The mastoid air cells are clear. Bones/joints: The calvarium is intact. Soft tissues: The visible extracranial soft tissues are unremarkable. -MRI brain 1. 5 x 4 mm punctate focus of decreased signal intensity on the gradient echo sequence in the subarachnoid space over the posterior right temporal lobe. No abnormality was seen in this area on the prior CT scan, a focal subarachnoid hemorrhage cannot be ruled out. Alternatively, this could represent hemosiderin deposition. Noncontrast CT scan of the head is recommended for further evaluation. 2. Stable moderate atrophy of the brain parenchyma. 3. Moderate white matter microangiopathic change. Following CT of the head 1. No acute abnormality of the brain. No evidence for hemorrhage to correspond to the finding on prior MRI. The finding on prior MRI likely represented an area of hemosiderin deposition. 2. Stable moderate atrophy of the brain parenchyma. 3. Mild chronic white matter microangiopathic change. 4. Incidental/nonacute findings are listed in the report. -Alert to person, not to place, not to time -More alert, awake, working with physical therapy -Has short-term memory loss, long-term memory loss -Also seems to confabulate, coming up with stories due to gaps in his memory -Given his current condition, I am concerned about him going home without appropriate assistance -Patient wants to go home, but I feel he lacks the capacity to understand the complexity of his medical condition, his work encephalopathy, his anemia, his edema -He has a history of leaving AGAINST MEDICAL ADVICE -Patient's wants him at a half-way, they want to pursue guardianship if possible -Currently on concerned that he does not have capacity to make decisions -I Have Consulted Psychiatry, 96-hour hold ordered -Family is working on guardianship through external medical accounts receivable specialist -Currently has been accepted at a local half-way Acute anemia -Hemoglobin 7.5 -Has received 2 unit PRBC -He does not have any blood or black stools, does have some left flank, and left thigh bruising from fall -Abdominal CT negative for any significant retroperitoneal bleed -Likely multifactorial from alcoholism, hematuria from pulling his Asencio catheter, possible slow GI bleed -Protonix, Carafate -B12, thiamine, folic acid -Monitor hemoglobin Hematuria -Patient was pulling on his Asencio catheter 05/28/2022 -Developed hematuria, aspirin held, has not received anticoagulants, INR within normal limits -Started on continuous bladder irrigation, continue to have bloody urine output -Traumatic hematuria, urethral trauma -Status post suprapubic catheter placement for urethral trauma -ct scan shows -1.? Abnormally positioned Asencio catheter. Asencio catheter balloon is distended at the junction of the bulbous and penile urethra. Recommend decompression of the balloon before repositioning. Asencio catheter needs to be advanced into the urinary bladder. 2.? Urinary bladder continues to be distended with urine and now has air which is probably related to the insertion of the Asencio catheter. 3.? Perinephric renal stranding with no renal obstruction, calcification or mass. 4.? Atherosclerosis aorta. -Monitor suprapubic catheter -Urology on consult Bradycardia -Has atrial fibrillation -Beta-shayne held -Serial EKGs, serial troponins, telemetry monitoring -Possible sinus node dysfunction related to alcoholism -We will continue to monitor Right forehead contusion: Denies pain. No acute intracranial abnormality on CT head. Opacification of the right frontal sinus. Probable chronic sinusitis. Lower extremity chronic venous stasis: Compression wraps bilateral lower extremities. He apparently goes to wound care clinic where these are managed for him. We will unwrap History of colon cancer, previously on palliative treatment, then with just monitoring due to refusal of follow-up surveillance colonoscopy. Poor appetite, consult nutrition, dysphagia diet, protein shakes BPH GERD Senile debility Gait instability Right arm swelling, venous ultrasound, Superficial thrombus within the cephalic vein in the forearm. No evidence of deep vein thrombosis -Cannot anticoagulate due to anemia -Continue conservative management, warm compresses, elevation Bilateral pitting edema, Lasix, with metolazone DVT prophylaxis held due to hematuria, anemia Full code Encourage p.o. 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
[2022-06-08] MEDS: nicotine 21 mg Patch 1 PATCH TRANSDERMA (10:36)
[2022-06-08 10:38] VITALS: BP 120/75
[2022-06-08] MEDS: cloNIDine 0.1 mg Tablet PO ×2 (10:38→18:40)
[2022-06-08] MEDS: multivitamin therapeutic Tablet 1 TAB PO (10:38)
[2022-06-08] MEDS: lisinopril 10 mg Tablet PO (10:39)
[2022-06-08] MEDS: cyanocobalamin 1,000 mcg Tablet 1000 MCG PO (10:39)
[2022-06-08] MEDS: magnesium lactate 84 mg Tablet PO (10:39)
[2022-06-08] MEDS: levothyroxine 125 mcg Tablet PO (10:40)
[2022-06-08] MEDS: folic acid 1 mg Tablet PO (10:40)
[2022-06-08] MEDS: FUROsemide 10 mg/mL SDV 4mL 40 MG IVP (11:04)
[2022-06-08] MEDS: potassium chloride ER 20 mEq Tablet 60 MEQ PO (11:04)
[2022-06-08] MEDS: metOLazone 5 MG Tablet PO (11:05)
[2022-06-08] MEDS: pantoprazole DR 40 mg Tablet PO ×2 (11:05→18:40)
[2022-06-08 11:36] VITALS: BP 106/46; PULSE 75; RESP 12; TEMP 37.1; O2SAT 94
[2022-06-08 15:42] VITALS: BP 107/43; PULSE 69; RESP 16; TEMP 36.8; O2SAT 98
[2022-06-08 20:00] VITALS: BP 115/58; PULSE 81; RESP 14; TEMP 36.6; O2SAT 100
[2022-06-08] MEDS: haloperidol inj 5 mg/mL INJ 1 mL 1 MG IVP (21:58)
[2022-06-09] VITALS (8 sets, daily range): BP systolic 113–156; BP diastolic 54–82; PULSE 55–75; RESP 15–18; TEMP 36.3–37.4; O2SAT 96–99
[2022-06-09 05:10] LABS: Basophils # 0.1 10^3/uL (0.0-0.1); Basophils % 0.7 %; Eosinophils # 0.2 10^3/uL (0.0-0.8); Eosinophils % 2.1 %; Hematocrit 24.7 % (42.0-52.0); Hemoglobin 7.7 g/dL (11.7-16.6); Lymphocytes # 0.8 10^3/uL (0.8-4.8); Lymphocytes % 10.3 %; Mean Corpuscular HGB Conc 31.2 g/dL (30.0-36.0); Mean Corpuscular Hemoglobin 34.5 pg (28.0-34.0); Mean Corpuscular Volume 110.8 fl (80-94); Mean Platelet Volume 11.7 fL (7.4-10.4); Monocytes # 0.5 10^3/uL (0.2-0.9); Monocytes % 7.2 %; Neutrophils # 5.91 10^3/uL (1.8-7.7); Neutrophils % 79.3 %; Nucleated Red Blood Cells % 0 %; Platelet Count 180 10^3/cmm (130-400); Red Blood Count 2.23 10^6/uL (4.1-5.3); Red Cell Distribution Width 16.4 % (12.1-15.1); White Blood Count 7.5 10^3/uL (4.0-10.0)
[2022-06-09 05:27] LABS: Alanine Aminotransferase 13 U/L (0-41); Albumin Level 2.8 g/dL (3.5-5.2); Alkaline Phosphatase 116 IU/L (40-130); Anion Gap 13.8 (5-19); Aspartate Amino Transferase 24 U/L (0-40); Blood Urea Nitrogen 12 mg/dL (8-23); Calcium 8.2 mg/dL (8.5-10.5); Carbon Dioxide 24 mmol/L (22-29); Chloride 109 mmol/L (98-107); Globulin 2.7 g/dL (1.3-4.6); Glucose 98 mg/dL (65-115); Magnesium 1.7 mg/dL (1.7-2.3); Osmolality Calculated 296 mOsm/kg (285-295); Potassium 3.8 mmol/L (3.5-5.1); Sodium 143 mmol/L (136-145); Total Bilirubin 0.4 mg/dL (0.15-1.2); Total Protein 5.5 g/dL (6.6-8.7)
[2022-06-09] MEDS: nicotine 21 mg Patch 1 PATCH TRANSDERMA (10:24)
[2022-06-09] MEDS: magnesium lactate 84 mg Tablet PO (10:26)
[2022-06-09] MEDS: lisinopril 10 mg Tablet PO (10:27)
[2022-06-09] MEDS: multivitamin therapeutic Tablet 1 TAB PO (10:27)
[2022-06-09] MEDS: folic acid 1 mg Tablet PO (10:27)
[2022-06-09] MEDS: levothyroxine 125 mcg Tablet PO (10:28)
[2022-06-09] MEDS: pantoprazole DR 40 mg Tablet PO ×2 (10:28→17:44)
[2022-06-09] MEDS: cyanocobalamin 1,000 mcg Tablet 1000 MCG PO (10:28)
[2022-06-09] MEDS: cloNIDine 0.1 mg Tablet PO ×2 (10:28→17:44)
--- NOTE | 2022-06-09 12:14 | P.PN_ITS ---
Subjective Subjective: Patient was seen this morning, he tells me he wants to go home, he will arrange his own Uber ride, he is not sure about his address, he does not know why he is here in the hospital, he knows his name, he knows that he is in the hospital, does not know the exact time, he does not understand the depth of his current hospitalization or of his medical ailment Vitals/I&O/Wt Last Vital Signs Temp 97.3 F L 06/09/22 11:26 Pulse 71 06/09/22 11:26 Resp 16 06/09/22 11:26 BP 128/63 06/09/22 11:26 Pulse Ox 98 06/09/22 11:26 06/08/22 06/09/22 06/09/22 22:59 06:59 14:59 Intake Total 360 / 480 370 / 370 Output Total 850 / 850 125 / 975 Balance -490 / -370 -125 / -495 370 / 370 Physical Exam Const: COMMON NORMALS: no acute distress and alert Resp: COMMON NORMALS: normal respiratory effort, No retractions, No use of accessory muscles and clear to auscultation bilaterally AUSCULTATION: clear to auscultation bilaterally Cardio: COMMON NORMALS: regular rate, regular rhythm, S1 normal heart sound present and S2 normal heart sound present RATE: regular rate RHYTHM: regular rhythm HEART SOUNDS: S1 normal heart sound present and S2 normal heart sound present GI: COMMON NORMALS: Normal to inspection, nondistended, normoactive bowel sounds present, Soft to palpation, non-tender and No hepatosplenomegaly present PALPATION: Yes Soft to palpation and Yes No hepatosplenomegaly present Extremity: COMMON NORMALS: no pedal edema Neuro: SENSORIUM/ORIENTATION: Yes alert Urinary Catheter Management: Asencio: Cath Placed During This Visit: yes, but has since been removed by the nurse Reason for Continuing Indwelling Catheter: Acute Urinary Retention or Obstruction Urinary Catheter Date of Insertion: 05/27/22 Urinary Catheter Time of Insertion: 21:00 Date Urinary Catheter Removed: 05/29/22 Time Urinary Catheter Discontinued: 17:35 Suprapubic: Cath Placed During This Visit: yes Reason for Continuing Indwelling Catheter: Acute Urinary Retention or Obstruction Urinary Catheter Date of Insertion: 05/29/22 Data : 06/09/22 04:30 06/09/22 04:30 A&P Assessment and plan (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 Discussed with his . He states that he drinks quite heavily, and otherwise functional decline, with frequent memory lapses, but has been able to drive himself to the hospital, although recently he been more confused. Per ER report driving aimlessly around town. At the current time he is not able to make safe decisions regarding his care or decision to leave the hospital. Will request one-to-one sitter as he is at risk of wandering or leaving in his confused state, with risk to himself and others if he leaves the hospital including getting lost or injured, or driving again with risk of MVA. Thiamine, folic acid, and VT replacement. Benzodiazepines with CIMT protocol for possibility of withdrawal. Monitor mentation, currently alert to person, not to place, not to time PT, OT assessment Case management consultation. Status: Acute (2) Hyponatremia: Received IV hydration at [facility]. Here sodium is 134. Continue with NaCl tablets. Regular diet. Monitor sodium. Possible progression to liver cirrhosis. TSH is normal. Status: Acute (3) Cholestasis: Possible progression to liver cirrhosis. Possible alcoholic hepatitis. Will check INR to allow Madrey discriminant calculation. Additional assessment by hepatobiliary ultrasound. No abdominal pain. He is afebrile, without leukocytosis or sign of infection. Status: Acute (4) Alcoholic hepatitis: Hyperbilirubinemia, alk phos elevation. Per his drinks heavily. INR within normal limits Status: Acute (5) Alcoholism: With concern for progression to Warnicke encephalopathy. Status: Acute (6) Atrial fibrillation: Metoprolol held Status: Acute (7) S/P AVR (aortic valve replacement): Aspirin currently on hold Status: Acute (8) Hypothyroidism: TSH is normal. Levothyroxine. Status: Acute (9) Hematuria: Status: Acute (10) Bradycardia: Status: Acute (11) Alcohol withdrawal delirium: - CIWA protocol as above Status: Acute Plan Alcohol withdrawal, with delirium, out of alcohol withdrawal window Warnicke's encephalopathy/Korsakoff syndrome CT of the head shows -Brain: There is diffuse cerebral atrophy and chronic microvascular white matter disease. There is no acute intracranial hemorrhage. Cerebral ventricles: There is moderate ex vacuo dilation of the lateral ventricles. Basal cisterns are unremarkable. Paranasal sinuses: Right frontal sinus is opacified. Paranasal sinuses otherwise clear. Mastoid air cells: The mastoid air cells are clear. Bones/joints: The calvarium is intact. Soft tissues: The visible extracranial soft tissues are unremarkable. -MRI brain 1. 5 x 4 mm punctate focus of decreased signal intensity on the gradient echo sequence in the subarachnoid space over the posterior right temporal lobe. No abnormality was seen in this area on the prior CT scan, a focal subarachnoid hemorrhage cannot be ruled out. Alternatively, this could represent hemosiderin deposition. Noncontrast CT scan of the head is recommended for further evaluation. 2. Stable moderate atrophy of the brain parenchyma. 3. Moderate white matter microangiopathic change. Following CT of the head 1. No acute abnormality of the brain. No evidence for hemorrhage to correspond to the finding on prior MRI. The finding on prior MRI likely represented an area of hemosiderin deposition. 2. Stable moderate atrophy of the brain parenchyma. 3. Mild chronic white matter microangiopathic change. 4. Incidental/nonacute findings are listed in the report. -Alert to person, not to place, not to time -More alert, awake, working with physical therapy -Has short-term memory loss, long-term memory loss -Also seems to confabulate, coming up with stories due to gaps in his memory -Given his current condition, I am concerned about him going home without appropriate assistance -Patient wants to go home, but I feel he lacks the capacity to understand the complexity of his medical condition, his work encephalopathy, his anemia, his edema -He has a history of leaving AGAINST MEDICAL ADVICE -Patient's wants him at a intermediate, they want to pursue guardianship if possible -Currently on concerned that he does not have capacity to make decisions -I Have Consulted Psychiatry, 96-hour hold ordered -Family is working on guardianship through external field technical support consultant -Currently has been accepted at a local intermediate Acute anemia -Hemoglobin 7.7 -Has received 2 unit PRBC -He does not have any blood or black stools, does have some left flank, and left thigh bruising from fall -Abdominal CT negative for any significant retroperitoneal bleed -Likely multifactorial from alcoholism, hematuria from pulling his Asencio cat heter, possible slow GI bleed -Protonix, Carafate -B12, thiamine, folic acid -Monitor hemoglobin Hematuria -Patient was pulling on his Asencio catheter 05/28/2022 -Developed hematuria, aspirin held, has not received anticoagulants, INR within normal limits -Started on continuous bladder irrigation, continue to have bloody urine output -Traumatic hematuria, urethral trauma -Status post suprapubic catheter placement for urethral trauma -ct scan shows -1.? Abnormally positioned Asencio catheter. Asencio catheter balloon is distended at the junction of the bulbous and penile urethra. Recommend decompression of the balloon before repositioning. Asencio catheter needs to be advanced into the urinary bladder. 2.? Urinary bladder continues to be distended with urine and now has air which is probably related to the insertion of the Asencio catheter. 3.? Perinephric renal stranding with no renal obstruction, calcification or mass. 4.? Atherosclerosis aorta. -Monitor suprapubic catheter -Urology on consult Bradycardia -Has atrial fibrillation -Beta-shayne held -Serial EKGs, serial troponins, telemetry monitoring -Possible sinus node dysfunction related to alcoholism -We will continue to monitor Right forehead contusion: Denies pain. No acute intracranial abnormality on CT head. Opacification of the right frontal sinus. Probable chronic sinusitis. Lower extremity chronic venous stasis: Compression wraps bilateral lower extremities. He apparently goes to wound care clinic where these are managed for him. We will unwrap History of colon cancer, previously on palliative treatment, then with just monitoring due to refusal of follow-up surveillance colonoscopy. Poor appetite, consult nutrition, dysphagia diet, protein shakes BPH GERD Senile debility Gait instability Right arm swelling, venous ultrasound, Superficial thrombus within the cephalic vein in the forearm. No evidence of deep vein thrombosis -Cannot anticoagulate due to anemia -Continue conservative management, warm compresses, elevation Bilateral pitting edema, Lasix DVT prophylaxis held due to hematuria, anemia Full code Encourage p.o. intake, PT OT Attestations Medical Necessity Statement*: Patient requires hospitalization for Wernicke's encephalopathy, anemia, superficial cephalic vein thrombus, lower extremity edema, hematuria Coding Level of Care Code Acute [employer] for [facility] Diagnoses Wernickes encephalopathy E51.2 Hyponatremia E87.1 Cholestasis K83.1 Alcoholic hepatitis K70.10 Alcoholism F10.20 Atrial fibrillation I48.91 S/P AVR (aortic valve replacement) Z95.2 Hypothyroidism E03.9 Hematuria R31.9 Bradycardia R00.1 Alcohol withdrawal delirium F10.231
[2022-06-09] MEDS: sucralfate 1 gm Tablet PO ×3 (13:07→20:52)
--- NOTE | 2022-06-09 13:37 | PC.SOCIAL ---
IMM Update pg 2 of IMM updated and reviewed w/ patients . Copy provided and Copy in chart updated.
[2022-06-10] VITALS (7 sets, daily range): BP systolic 124–149; BP diastolic 59–99; PULSE 67–87; RESP 16–18; TEMP 36.7–37; O2SAT 97–100
[2022-06-10 05:20] LABS: Basophils % 0.5 %; Eosinophils # 0.2 10^3/uL (0.0-0.8); Eosinophils % 3.3 %; Hematocrit 24.9 % (42.0-52.0); Hemoglobin 7.9 g/dL (11.7-16.6); Lymphocytes # 0.7 10^3/uL (0.8-4.8); Lymphocytes % 10.2 %; Mean Corpuscular HGB Conc 31.7 g/dL (30.0-36.0); Mean Corpuscular Hemoglobin 33.8 pg (28.0-34.0); Mean Corpuscular Volume 106.4 fl (80-94); Mean Platelet Volume 11.3 fL (7.4-10.4); Monocytes # 0.5 10^3/uL (0.2-0.9); Monocytes % 7.5 %; Neutrophils # 4.97 10^3/uL (1.8-7.7); Neutrophils % 77.7 %; Nucleated Red Blood Cells % 0 %; Platelet Count 186 10^3/cmm (130-400); Red Blood Count 2.34 10^6/uL (4.1-5.3); Red Cell Distribution Width 16.2 % (12.1-15.1); White Blood Count 6.4 10^3/uL (4.0-10.0)
[2022-06-10 05:52] LABS: Alanine Aminotransferase 12 U/L (0-41); Albumin Level 2.9 g/dL (3.5-5.2); Alkaline Phosphatase 122 IU/L (40-130); Anion Gap 12.1 (5-19); Aspartate Amino Transferase 19 U/L (0-40); Blood Urea Nitrogen 16 mg/dL (8-23); Calcium 8.6 mg/dL (8.5-10.5); Carbon Dioxide 27 mmol/L (22-29); Chloride 110 mmol/L (98-107); Globulin 2.7 g/dL (1.3-4.6); Glucose 106 mg/dL (65-115); Magnesium 1.9 mg/dL (1.7-2.3); NT Pro B Type Natriuretic Pept 834 pg/mL (0-450); Osmolality Calculated 302 mOsm/kg (285-295); Phosphorus 3.7 mg/dL (2.5-4.5); Potassium 4.1 mmol/L (3.5-5.1); Sodium 145 mmol/L (136-145); Total Bilirubin 0.5 mg/dL (0.15-1.2); Total Protein 5.6 g/dL (6.6-8.7)
[2022-06-10] MEDS: sucralfate 1 gm Tablet PO ×4 (06:32→20:09)
[2022-06-10] MEDS: pantoprazole DR 40 mg Tablet PO ×2 (08:15→17:22)
[2022-06-10] MEDS: cyanocobalamin 1,000 mcg Tablet 1000 MCG PO (08:15)
[2022-06-10] MEDS: levothyroxine 125 mcg Tablet PO (08:15)
[2022-06-10] MEDS: lisinopril 10 mg Tablet PO (08:15)
[2022-06-10] MEDS: nicotine 21 mg Patch 1 PATCH TRANSDERMA (08:15)
[2022-06-10] MEDS: multivitamin therapeutic Tablet 1 TAB PO (08:15)
[2022-06-10] MEDS: cloNIDine 0.1 mg Tablet PO ×2 (08:15→17:22)
[2022-06-10] MEDS: folic acid 1 mg Tablet PO (08:15)
[2022-06-10] MEDS: magnesium lactate 84 mg Tablet PO (08:40)
[2022-06-10] MEDS: FUROsemide 10 mg/mL SDV 4mL 40 MG IVP ×2 (10:19→17:22)
[2022-06-10] MEDS: metOLazone 5 MG Tablet PO (10:37)
--- NOTE | 2022-06-10 13:16 | PM.PN ---
Subjective Subjective: Patient was seen this morning, he sitting up in a chair, feeling to person, to place, not to time, no shortness of breath, mood good mood continues to have bilateral lower extremity 2+ pitting edema with weeping edema Vitals/I&O/Wt Last Vital Signs Temp 98.4 F 06/10/22 12:00 Pulse 68 06/10/22 12:00 Resp 18 06/10/22 12:00 BP 149/99 06/10/22 12:00 Pulse Ox 98 06/10/22 12:00 06/09/22 06/10/22 06/10/22 22:59 06:59 14:59 Intake Total 730 / 730 Output Total 200 / 200 125 / 325 Balance -200 / 410 -125 / 285 730 / 730 Physical Exam Const: COMMON NORMALS: no acute distress and patient oriented x3 Resp: COMMON NORMALS: normal respiratory effort, No retractions, No use of accessory muscles and clear to auscultation bilaterally AUSCULTATION: clear to auscultation bilaterally Cardio: COMMON NORMALS: regular rate, regular rhythm, S1 normal heart sound present and S2 normal heart sound present RATE: regular rate RHYTHM: regular rhythm HEART SOUNDS: S1 normal heart sound present and S2 normal heart sound present GI: COMMON NORMALS: Normal to inspection, nondistended, normoactive bowel sounds present, Soft to palpation and non-tender PALPATION: Yes Soft to palpation Extremity: NARRATIVE EXTREMITY EXAM: 2+ pitting edema Neuro: COMMON NORMALS: patient oriented x3 Psych: COMMON NORMALS: mental status grossly normal Urinary Catheter Management: Asencio: Cath Placed During This Visit: yes, but has since been removed by the nurse Reason for Continuing Indwelling Catheter: Acute Urinary Retention or Obstruction Urinary Catheter Date of Insertion: 05/27/22 Urinary Catheter Time of Insertion: 21:00 Date Urinary Catheter Removed: 05/29/22 Time Urinary Catheter Discontinued: 17:35 Suprapubic: Cath Placed During This Visit: yes Reason for Continuing Indwelling Catheter: Acute Urinary Retention or Obstruction Urinary Catheter Date of Insertion: 05/29/22 Data : 06/10/22 04:45 06/10/22 04:45 A&P Assessment and plan (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 Discussed with his . He states that he drinks quite heavily, and otherwise functional decline, with frequent memory lapses, but has been able to drive himself to the hospital, although recently he been more confused. Per ER report driving aimlessly around town. At the current time he is not able to make safe decisions regarding his care or decision to leave the hospital. Will request one-to-one sitter as he is at risk of wandering or leaving in his confused state, with risk to himself and others if he leaves the hospital including getting lost or injured, or driving again with risk of MVA. Thiamine, folic acid, and VT replacement. Benzodiazepines with [facility] protocol for possibility of withdrawal. Monitor mentation, currently alert to person, not to place, not to time PT, OT assessment Case management consultation. Status: Acute (2) Hyponatremia: Received IV hydration at [facility]. Here sodium is 134. Continue with NaCl tablets. Regular diet. Monitor sodium. Possible progression to liver cirrhosis. TSH is normal. Status: Acute (3) Cholestasis: Possible progression to liver cirrhosis. Possible alcoholic hepatitis. Will check INR to allow Madrey discriminant calculation. Additional assessment by hepatobiliary ultrasound. No abdominal pain. He is afebrile, without leukocytosis or sign of infection. Status: Acute (4) Alcoholic hepatitis: Hyperbilirubinemia, alk phos elevation. Per his drinks heavily. INR within normal limits Status: Acute (5) Alcoholism: With concern for progression to Warnicke encephalopathy. Status: Acute (6) Atrial fibrillation: Metoprolol held Status: Acute (7) S/P AVR (aortic valve replacement): Aspirin currently on hold Status: Acute (8) Hypothyroidism: TSH is normal. Levothyroxine. Status: Acute (9) Hematuria: Status: Acute (10) Bradycardia: Status: Acute (11) Alcohol withdrawal delirium: - [facility] protocol as above Status: Acute Plan Alcohol withdrawal, with delirium, out of alcohol withdrawal window Warnicke's encephalopathy/Korsakoff syndrome CT of the head shows -Brain: There is diffuse cerebral atrophy and chronic microvascular white matter disease. There is no acute intracranial hemorrhage. Cerebral ventricles: There is moderate ex vacuo dilation of the lateral ventricles. Basal cisterns are unremarkable. Paranasal sinuses: Right frontal sinus is opacified. Paranasal sinuses otherwise clear. Mastoid air cells: The mastoid air cells are clear. Bones/joints: The calvarium is intact. Soft tissues: The visible extracranial soft tissues are unremarkable. -MRI brain 1. 5 x 4 mm punctate focus of decreased signal intensity on the gradient echo sequence in the subarachnoid space over the posterior right temporal lobe. No abnormality was seen in this area on the prior CT scan, a focal subarachnoid hemorrhage cannot be ruled out. Alternatively, this could represent hemosiderin deposition. Noncontrast CT scan of the head is recommended for further evaluation. 2. Stable moderate atrophy of the brain parenchyma. 3. Moderate white matter microangiopathic change. Following CT of the head 1. No acute abnormality of the brain. No evidence for hemorrhage to correspond to the finding on prior MRI. The finding on prior MRI likely represented an area of hemosiderin deposition. 2. Stable moderate atrophy of the brain parenchyma. 3. Mild chronic white matter microangiopathic change. 4. Incidental/nonacute findings are listed in the report. -Alert to person, not to place, not to time -More alert, awake, working with physical therapy -Has short-term memory loss, long-term memory loss -Also seems to confabulate, coming up with stories due to gaps in his memory -Given his current condition, I am concerned about him going home without appropriate assistance -Patient wants to go home, but I feel he lacks the capacity to understand the complexity of his medical condition, his work encephalopathy, his anemia, his edema -He has a history of leaving AGAINST MEDICAL ADVICE -Patient's wants him at a [facility], they want to pursue guardianship if possible -Currently on concerned that he does not have capacity to make decisions -I Have Consulted Psychiatry, 96-hour hold ordered -Family is working on guardianship through external acquisition marketing coordinator -Currently has been accepted at a local [facility] Acute anemia -Hemoglobin 7.9 -Has received 2 unit PRBC -He does not have any blood or black stools, does have some left flank, and left thigh bruising from fall -Abdominal CT negative for any significant retroperitoneal bleed -Likely multifactorial from alcoholism, hematuria from pulling his Asencio catheter, possible slow GI bleed -Protonix, Carafate -B12, thiamine, folic acid -Monitor hemoglobin Hematuria -Patient was pulling on his Asencio catheter 05/28/2022 -Developed hematuria, aspirin held, has not received anticoagulants, INR within normal limits -Started on continuous bladder irrigation, continue to have bloody urine output -Traumatic hematuria, urethral trauma -Status post suprapubic catheter placement for urethral trauma -ct scan shows -1.? Abnormally positioned Asencio catheter. Asencio catheter balloon is distended at the junction of the bulbous and penile urethra. Recommend decompression of the balloon before repositioning. Asencio catheter needs to be advanced into the urinary bladder. 2.? Urinary bladder continues to be distended with urine and now has air which is probably related to the insertion of the Asencio catheter. 3.? Perinephric renal stranding with no renal obstruction, calcification or mass. 4.? Atherosclerosis aorta. -Monitor suprapubic catheter -Urology on consult Bradycardia -Has atrial fibrillation -Beta-shayne held -Serial EKGs, serial troponins, telemetry monitoring -Possible sinus node dysfunction related to alcoholism -We will continue to monitor Right forehead contusion: Denies pain. No acute intracranial abnormality on CT head. Opacification of the right frontal sinus. Probable chronic sinusitis. Lower extremity chronic venous stasis: Compression wraps bilateral lower extremities. He apparently goes to wound care clinic where these are managed for him. We will unwrap History of colon cancer, previously on palliative treatment, then with just monitoring due to refusal of follow-up surveillance colonoscopy. Poor appetite, consult nutrition, dysphagia diet, protein shakes BPH GERD Senile debility Gait instability Right arm swelling, venous ultrasound, Superficial thrombus within the cephalic vein in the forearm. No evidence of deep vein thrombosis -Cannot anticoagulate due to anemia -Continue conservative management, warm compresses, elevation Bilateral pitting edema, Lasix DVT prophylaxis held due to hematuria, anemia Full code Encourage p.o. 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
[2022-06-10] MEDS: potassium chloride ER 20 mEq Tablet PO (17:22)
[2022-06-11] VITALS: BP 151/79; PULSE 89; RESP 17; TEMP 37.1
[2022-06-11 04:00] VITALS: BP 135/60; PULSE 72; RESP 18; TEMP 37.4; O2SAT 95
[2022-06-11 05:43] LABS: Basophils # 0.1 10^3/uL (0.0-0.1); Basophils % 0.7 %; Eosinophils # 0.2 10^3/uL (0.0-0.8); Eosinophils % 2.4 %; Hemoglobin 7.9 g/dL (11.7-16.6); Lymphocytes # 0.7 10^3/uL (0.8-4.8); Lymphocytes % 10.7 %; Mean Corpuscular HGB Conc 32.9 g/dL (30.0-36.0); Mean Corpuscular Hemoglobin 33.6 pg (28.0-34.0); Mean Corpuscular Volume 102.1 fl (80-94); Mean Platelet Volume 11.8 fL (7.4-10.4); Monocytes # 0.5 10^3/uL (0.2-0.9); Neutrophils # 5.27 10^3/uL (1.8-7.7); Neutrophils % 78.6 %; Nucleated Red Blood Cells % 0 %; Platelet Count 205 10^3/cmm (130-400); Red Blood Count 2.35 10^6/uL (4.1-5.3); Red Cell Distribution Width 15.5 % (12.1-15.1); White Blood Count 6.7 10^3/uL (4.0-10.0)
[2022-06-11 06:00] LABS: Alkaline Phosphatase 126 IU/L (40-130); Chloride 104 mmol/L (98-107); Potassium 3.6 mmol/L (3.5-5.1); Sodium 141 mmol/L (136-145)
[2022-06-11] MEDS: sucralfate 1 gm Tablet PO ×4 (06:34→20:33)
[2022-06-11 06:50] LABS: Anion Gap 16.6 (5-19); Aspartate Amino Transferase 17 U/L (0-40); Blood Urea Nitrogen 13 mg/dL (8-23); Calcium 8.4 mg/dL (8.5-10.5); Carbon Dioxide 24 mmol/L (22-29); Globulin 2.8 g/dL (1.3-4.6); Glucose 92 mg/dL (65-115); Magnesium 1.8 mg/dL (1.7-2.3); Osmolality Calculated 292 mOsm/kg (285-295); Phosphorus 3.9 mg/dL (2.5-4.5); Total Bilirubin 0.5 mg/dL (0.15-1.2); Total Protein 5.6 g/dL (6.6-8.7)
[2022-06-11 06:51] LABS: Albumin Level 2.8 g/dL (3.5-5.2)
[2022-06-11 06:53] LABS: Alanine Aminotransferase 11 U/L (0-41)
[2022-06-11 06:54] LABS: NT Pro B Type Natriuretic Pept 799 pg/mL (0-450)
[2022-06-11 07:52] VITALS: BP 128/70; PULSE 77; RESP 18; TEMP 36.9; O2SAT 97
[2022-06-11] MEDS: cyanocobalamin 1,000 mcg Tablet 1000 MCG PO (08:48)
[2022-06-11] MEDS: folic acid 1 mg Tablet PO (08:48)
[2022-06-11] MEDS: multivitamin therapeutic Tablet 1 TAB PO (08:48)
[2022-06-11] MEDS: magnesium lactate 84 mg Tablet PO (08:48)
[2022-06-11] MEDS: levothyroxine 125 mcg Tablet PO (08:48)
[2022-06-11] MEDS: cloNIDine 0.1 mg Tablet PO (08:48)
[2022-06-11] MEDS: nicotine 21 mg Patch 1 PATCH TRANSDERMA (08:49)
[2022-06-11] MEDS: lisinopril 10 mg Tablet PO (08:49)
[2022-06-11] MEDS: pantoprazole DR 40 mg Tablet PO ×2 (08:49→18:08)
--- NOTE | 2022-06-11 11:32 | PC.SOCIAL ---
IMM Updated Updated pt's on IMM. No questions voiced. Provided pt a copy. Initialed, dated, & timed copy in chart.
[2022-06-11 12:00] VITALS: BP 112/53; PULSE 90; RESP 16; TEMP 36.4; O2SAT 99
--- NOTE | 2022-06-11 12:55 | PM.PN ---
Subjective Subjective: This morning patient was sitting in his chair He wanted to go home, we did discuss that it is unsafe for him to return home as his will not be able to take care of him As per the caseworker intake guardianship hearing is on Saturday Hemoglobin has remained stable, no need of an EGD for now No overnight events Vitals/I&O/Wt Last Vital Signs Temp 97.6 F 06/11/22 12:00 Pulse 90 06/11/22 12:00 Resp 16 06/11/22 12:00 BP 112/53 06/11/22 12:00 Pulse Ox 99 06/11/22 12:00 06/10/22 06/11/22 06/11/22 22:59 06:59 14:59 Intake Total 480 / 1210 Output Total 1250 / 2150 550 / 2700 500 / 500 Balance -770 / -940 -550 / -1490 -500 / -500 Physical Exam Narrative: Patient was sitting in a chair saturating well on room air Pleasant and cooperative He does have open wound of left leg, Venous stasis dermatitis Cellulitis of left leg noted as well Patient able to follow commands Nonfocal neuro exam Abdomen soft S1, S2 No audible stridor or wheezing Urinary Catheter Management: Asencio: Cath Placed During This Visit: yes, but has since been removed by the nurse Reason for Continuing Indwelling Catheter: Acute Urinary Retention or Obstruction Urinary Catheter Date of Insertion: 05/27/22 Urinary Catheter Time of Insertion: 21:00 Date Urinary Catheter Removed: 05/29/22 Time Urinary Catheter Discontinued: 17:35 Suprapubic: Cath Placed During This Visit: yes Reason for Continuing Indwelling Catheter: Acute Urinary Retention or Obstruction Urinary Catheter Date of Insertion: 05/29/22 Data : 06/11/22 04:52 06/11/22 04:52 A&P Assessment and plan (1) Pulmonary HTN: Status: Acute (2) Hypothyroidism: Status: Acute (3) S/P AVR (aortic valve replacement): Status: Acute (4) Atrial fibrillation: Status: Acute (5) Venous stasis: Status: Acute (6) Ascending aortic aneurysm: Status: Acute (7) Alcoholism: Status: Acute (8) Wernickes encephalopathy: Status: Acute (9) Alcoholic hepatitis: Status: Acute (10) Asencio catheter problem: Status: Acute (11) Urethral trauma: Status: Acute (12) Anemia: Status: Acute (13) Suprapubic catheter: Status: Acute Plan Hemoglobin has remained stable status post 2 unit PRBC No need of EGD Hemoglobin 7.9 hemodynamically stable Anemia could be hematuria related Warnicke encephalopathy/Korsakoff Continue thiamine and folic acid Family working on guardianship through external information technology internship Hematuria, status post suprapubic catheter placement Bradycardia: Heart rate in 90s today hemodynamically stable Renasys dermatitis, cellulitis of left leg I have requested nurse for dry wound care dressing with Kerlix, ABD noncompression wraps Patient here history of colon cancer he was on palliative treatment which was terminated for lack of surveillance colonoscopy Patient is full code Right arm superficial thrombophlebitis Contraindicated for DVT prophylaxis with anticoagulating agent Full code Continue daily PT Attestations Medical Necessity Statement*: Continue medical management, awaiting guardianship Time Spent in Patient Care: 30 Coding Level of Care Code 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
[2022-06-11 15:56] VITALS: BP 121/57; PULSE 67; RESP 16; TEMP 36.6; O2SAT 96
[2022-06-11 20:00] VITALS: BP 118/65; PULSE 93; RESP 18; TEMP 37.4; O2SAT 97
[2022-06-12] VITALS: BP 137/80; PULSE 96; RESP 18; TEMP 36.9; O2SAT 98
[2022-06-12 03:26] LABS: Basophils # 0.1 10^3/uL (0.0-0.1); Basophils % 0.6 %; Eosinophils # 0.1 10^3/uL (0.0-0.8); Eosinophils % 1.1 %; Hematocrit 25.1 % (42.0-52.0); Hemoglobin 8.6 g/dL (11.7-16.6); Lymphocytes # 0.7 10^3/uL (0.8-4.8); Lymphocytes % 8.1 %; Mean Corpuscular HGB Conc 34.3 g/dL (30.0-36.0); Mean Corpuscular Hemoglobin 34.1 pg (28.0-34.0); Mean Corpuscular Volume 99.6 fl (80-94); Mean Platelet Volume 11.6 fL (7.4-10.4); Monocytes # 0.6 10^3/uL (0.2-0.9); Monocytes % 7.6 %; Neutrophils # 6.81 10^3/uL (1.8-7.7); Neutrophils % 82.1 %; Nucleated Red Blood Cells % 0 %; Platelet Count 212 10^3/cmm (130-400); Red Blood Count 2.52 10^6/uL (4.1-5.3); Red Cell Distribution Width 15.2 % (12.1-15.1); White Blood Count 8.3 10^3/uL (4.0-10.0)
[2022-06-12] MEDS: sucralfate 1 gm Tablet PO ×4 (06:33→20:12)
[2022-06-12 08:00] VITALS: BP 110/62; PULSE 97; RESP 17; TEMP 36.6; O2SAT 98
[2022-06-12] MEDS: nicotine 21 mg Patch 1 PATCH TRANSDERMA (08:32)
[2022-06-12] MEDS: magnesium lactate 84 mg Tablet PO (08:35)
[2022-06-12] MEDS: levothyroxine 125 mcg Tablet PO (08:35)
[2022-06-12] MEDS: multivitamin therapeutic Tablet 1 TAB PO (08:35)
[2022-06-12] MEDS: cyanocobalamin 1,000 mcg Tablet 1000 MCG PO (08:35)
[2022-06-12] MEDS: thiamine 100 mg Tablet PO (08:35)
[2022-06-12] MEDS: pantoprazole DR 40 mg Tablet PO ×2 (08:35→17:53)
[2022-06-12] MEDS: folic acid 1 mg Tablet PO (08:35)
[2022-06-12] MEDS: lisinopril 10 mg Tablet PO (08:35)
--- NOTE | 2022-06-12 12:05 | P.PN_ITS ---
Subjective Subjective: Patient was getting his dressing changed by the nurses Had 2 bowel movements this morning Hemoglobin stable no need of EGD I did speak with his today as well She has consultation with a missing persons investigator tomorrow 10 AM, once we have a court order date will be able to place into a snf Vitals/I&O/Wt Last Vital Signs Temp 98 F 06/12/22 08:00 Pulse 97 06/12/22 08:00 Resp 17 06/12/22 08:00 BP 110/62 06/12/22 08:00 Pulse Ox 98 06/12/22 08:00 06/11/22 06/12/22 06/12/22 22:59 06:59 14:59 Intake Total 170 / 170 50 / 220 Output Total 150 / 850 300 / 1150 Balance 20 / -680 -250 / -930 Physical Exam Narrative: Patient sitting in his chair Currently on room air Awake and alert Does try to confabulate, No speech deficit Nonfocal neuro exam Abdomen soft Asencio catheter draining clear urine Left leg open wound no active signs cellulitis Skin is macerated however showing signs of granulation tissue Urinary Catheter Management: Asencio: Cath Placed During This Visit: yes, but has since been removed by the nurse Reason for Continuing Indwelling Catheter: Acute Urinary Retention or Obstruction Urinary Catheter Date of Insertion: 05/27/22 Urinary Catheter Time of Insertion: 21:00 Date Urinary Catheter Removed: 05/29/22 Time Urinary Catheter Discontinued: 17:35 Suprapubic: Cath Placed During This Visit: yes Reason for Continuing Indwelling Catheter: Acute Urinary Retention or Obstruction Urinary Catheter Date of Insertion: 05/29/22 Data : 06/12/22 02:52 06/11/22 04:52 Micro: Microbiology 06/12/22 09:16 Occult Blood (FIT) - Final Stool - Stool Aspirate A&P Assessment and plan (1) Pulmonary HTN: Status: Acute (2) Hypothyroidism: Status: Acute (3) S/P AVR (aortic valve replacement): Status: Acute (4) Atrial fibrillation: Status: Acute (5) Venous stasis: Status: Acute (6) Prostatic hypertrophy: Status: Acute (7) Ascending aortic aneurysm: Status: Acute (8) Altered mental status: Status: Acute (9) Alcoholism: Status: Acute (10) Wernickes encephalopathy: Status: Acute (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 (12) Suprapubic catheter: Status: Acute Plan Alcohol-related anemia Status post 2 unit PRBC Hemoglobin stable No need of EGD Korsakoff syndrome Patient is unsafe to return home meeting with a missing persons investigator 10 AM tomorrow Once he has a court order date will place him to a snf He does not have capacity to make decision Heart rate is in 90s, bradycardia improved Hematuria improved Patient is full code Carries history of colon cancer updated DVT prophylaxis contraindicated Left leg open wound without active sign of cellulitis, I have kept him on doxycycline, Kerlix ABD noncompression wraps on daily basis Attestations Medical Necessity Statement*: Awaiting placement Time Spent in Patient Care: 35 Coding Level of Care Code 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
[2022-06-12] MEDS: doxycycline 100 mg Tablet PO (17:53)
[2022-06-12 20:00] VITALS: BP 120/73; PULSE 94; RESP 18; TEMP 37.1; O2SAT 97
[2022-06-13] VITALS: BP 112/53; PULSE 93; RESP 15; TEMP 37.5; O2SAT 95
[2022-06-13 04:00] VITALS: BP 118/64; PULSE 91; RESP 15; TEMP 38.7; O2SAT 94
[2022-06-13 04:36] VITALS: TEMP 37.9
[2022-06-13] MEDS: acetaminophen 325 mg Tablet 650 MG PO (05:08)
[2022-06-13] MEDS: sucralfate 1 gm Tablet PO (06:24)
[2022-06-13 07:58] VITALS: BP 108/57; PULSE 85; RESP 20; TEMP 36.8; O2SAT 96
--- NOTE | 2022-06-13 09:30 | PC.SOCIAL ---
IMM Not Updated Pg. 2 of IMM not updated with patient. Patient's pursuing guardianship of patient, not anticipating discharge within the next 48hours.
--- NOTE | 2022-06-13 10:04 | P.PN_ITS ---
Subjective Subjective: Urology follow-up: Now 2 weeks post open suprapubic tube placement. Thankfully the catheter has functioned well and he has not manipulated it unreasonably. Wound looks healthy. [place] removed. Steri-Strips applied over benzoin. Recommendations: 1. Follow-up in my office in about 3 weeks for first suprapubic tube change. Vitals/I&O/Wt Last Vital Signs Temp 98.3 F 06/13/22 07:58 Pulse 85 06/13/22 07:58 Resp 20 H 06/13/22 07:58 BP 108/57 06/13/22 07:58 Pulse Ox 96 06/13/22 07:58 06/12/22 06/13/22 06/13/22 22:59 06:59 14:59 Intake Total 240 / 340 Output Total 100 / 100 Balance 140 / 240 Physical Exam Narrative: Alert, not oriented, somewhat belligerent Respiratory: No labored respirations, no audible wheezes Abdomen: Soft, nontender. Incision is healing well. No evidence of infection. Suprapubic tube is well secured. Genital exam: Normal Extremity, good range of motion Urinary Catheter Management: Asencio: Cath Placed During This Visit: yes, but has since been removed by the nurse Reason for Continuing Indwelling Catheter: Acute Urinary Retention or Obstruction Urinary Catheter Date of Insertion: 05/27/22 Urinary Catheter Time of Insertion: 21:00 Date Urinary Catheter Removed: 05/29/22 Time Urinary Catheter Discontinued: 17:35 Suprapubic: Cath Placed During This Visit: yes Reason for Continuing Indwelling Catheter: Other Urinary Catheter Date of Insertion: 05/29/22 Data : 06/12/22 02:52 06/11/22 04:52 Micro: Microbiology 06/12/22 09:16 Occult Blood (FIT) - Final Stool - Stool Aspirate A&P Assessment and plan (1) Urethral trauma: From forcible catheter withdrawal. Status: Acute (2) Urine retention: Was secondary to urethral trauma from forcible catheter withdrawal Could not find true lumen with cystoscopy prior to suprapubic tube placement. Status: Acute (3) Suprapubic catheter: Functioning well. No complications related to that Status: Acute Plan 1. Maintain suprapubic tube for at least 3 more weeks and then follow-up in my office for for suprapubic tube change. 2. 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
--- NOTE | 2022-06-13 10:26 | PM.PN ---
Subjective Subjective: he was sitting in his chair he asked me the same question if he could go home His suprapubic catheter is in place Draining clear urine Dominique in place Patient is having diarrhea Asked nurse to check for C. difficile Vitals/I&O/Wt Last Vital Signs Temp 98.3 F 06/13/22 07:58 Pulse 85 06/13/22 07:58 Resp 20 H 06/13/22 07:58 BP 108/57 06/13/22 07:58 Pulse Ox 96 06/13/22 07:58 06/12/22 06/13/22 06/13/22 22:59 06:59 14:59 Intake Total 240 / 340 Output Total 100 / 100 Balance 140 / 240 Physical Exam Narrative: Patient was sitting in his chair Suprapubic catheter in place No sign of cellulitis Dominique in place Abdomen is soft Satting well on room air Awake and alert Nonfocal neuro exam Bilateral lower extremity venous stasis dermatitis Clean dressing on left leg Skin wrinkling noticed No significant edema Urinary Catheter Management: Asencio: Cath Placed During This Visit: yes, but has since been removed by the nurse Reason for Continuing Indwelling Catheter: Acute Urinary Retention or Obstruction Urinary Catheter Date of Insertion: 05/27/22 Urinary Catheter Time of Insertion: 21:00 Date Urinary Catheter Removed: 05/29/22 Time Urinary Catheter Discontinued: 17:35 Suprapubic: Cath Placed During This Visit: yes Reason for Continuing Indwelling Catheter: Other Urinary Catheter Date of Insertion: 05/29/22 Data : 06/12/22 02:52 06/11/22 04:52 Micro: Microbiology 06/12/22 09:16 Occult Blood (FIT) - Final Stool - Stool Aspirate A&P Assessment and plan (1) Pulmonary HTN: Status: Acute (2) Hypothyroidism: Status: Acute (3) S/P AVR (aortic valve replacement): Status: Acute (4) Atrial fibrillation: Status: Acute (5) Venous stasis: Status: Acute (6) Ascending aortic aneurysm: Status: Acute (7) Korsakoff disease: Status: Acute (8) Suprapubic catheter: Status: Acute (9) Alcohol withdrawal delirium: Status: Acute (10) Hematuria: Status: Acute (11) Alcoholic hepatitis: Status: Acute (12) Alcoholism: Status: Acute Plan Patient is awaiting placement Suprapubic catheter in place after urethral trauma, appreciate Dr. Carvalho's recommendation [place] to be removed by Dr. Carvalho Nonpurulent cellulitis of left leg, continue doxycycline Kerlix ABD and dry dressing noncompression wraps Diarrhea in the hospital: Check C. 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
[2022-06-13] MEDS: nicotine 21 mg Patch 1 PATCH TRANSDERMA (10:52)
[2022-06-13] MEDS: doxycycline 100 mg Tablet PO (10:54)
[2022-06-13] MEDS: pantoprazole DR 40 mg Tablet PO (10:56)
[2022-06-13] MEDS: thiamine 100 mg Tablet PO (10:56)
[2022-06-13] MEDS: folic acid 1 mg Tablet PO (10:56)
[2022-06-13] MEDS: cyanocobalamin 1,000 mcg Tablet 1000 MCG PO (10:57)
[2022-06-13] MEDS: levothyroxine 125 mcg Tablet PO (10:57)
[2022-06-13 11:23] VITALS: BP 114/63; PULSE 91; RESP 16; TEMP 36.7; O2SAT 98
--- NOTE | 2022-06-13 13:24 | P.DS_ITS ---
Discharge Providers Date of Admission: 05/27/22 18:36 Date of Discharge: June 13, 2022 Attending Provider at Admission: Fredi Caballero Attending Provider at Discharge: Rodríguez Bae MD Primary Care Provider: Sky Ramos Diagnoses at Discharge Discharge Diagnosis (1) Pulmonary HTN: Status: Acute (2) Hypothyroidism: Status: Acute (3) S/P AVR (aortic valve replacement): Status: Acute Permanent problem details: Bioprosthesis (4) Atrial fibrillation: Status: Acute (5) Venous stasis: Status: Acute (6) Ascending aortic aneurysm: Status: Acute (7) Korsakoff disease: Status: Acute (8) Suprapubic catheter: Status: Acute (9) Alcohol withdrawal delirium: Status: Acute (10) Hematuria: Status: Acute (11) Alcoholic hepatitis: Status: Acute (12) Alcoholism: Status: Acute Reason for Visit Reason for Visit: BACK PAIN Hospital Course Hospital Course Patient was admitted on 05/27 He was discharged on 06/13 Dr. Carvalho was consulted during his hospitalization Mr. 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 At baseline he is able to walk and sit up in a chair but confabulates a lot. He has been suffering from deconditioning because of chronic alcoholism. His requested [facility]iary placement. She does have DURABLE POWER OF REGISTERED NURSE CARDIAC for him. He continues to have bilateral lower extremity edema and required IV diuretics initially which was switched to p.o. regimen. He also received 2 units PRBC for his acute on chronic alcohol-related anemia. No active GI bleed. Hemoglobin remained stable. He was also diagnosed with right upper extremity DVT however not a suitable candidate for anticoagulation due to anemia. During his h ospitalization he tried to pull on his old catheter and suffered from urethral injury, Dr. Carvalho had to do a suprapubic catheter. He will see him in the clinic after 10 days to remove dominique and replace his suprapubic catheter after [address] Carvalho has evaluated him and recommended outpatient follow-up. Today he will be discharged to a rehab. has been updated. Hemoglobin at the time of discharge 8.6, Hemoccult positive, will give him referral to see Dr. Tim for colonoscopy. For his left leg open wound he was given doxycycline. He was getting Kerlix, ABD noncompression wraps for his left leg wound. He does have bilateral venous stasis dermatitis. Physical Exam Narrative: Patient was sitting in his chair Suprapubic catheter in place No sign of cellulitis Dominique in place Abdomen is soft Satting well on room air Awake and alert Nonfocal neuro exam Bilateral lower extremity venous stasis dermatitis Clean dressing on left leg Skin wrinkling noticed No significant edema Urinary Catheter Management: Asencio: Cath Placed During This Visit: yes, but has since been removed by the nurse Reason for Continuing Indwelling Catheter: Acute Urinary Retention or Obstruction Urinary Catheter Date of Insertion: 05/27/22 Urinary Catheter Time of Insertion: 21:00 Date Urinary Catheter Removed: 05/29/22 Time Urinary Catheter Discontinued: 17:35 Suprapubic: Cath Placed During This Visit: yes Reason for Continuing Indwelling Catheter: Other Urinary Catheter Date of Insertion: 05/29/22 Discharge Data Studies Completed and Pending Completed Studies During Hospitalization Category Date Time Status CT abdomen pelvis wo/w [id number] Routine Cat Scan 05/29/22 06:[address] head wo con* [id number] Routine Cat Scan 06/07/22 18:[address] head wo con* [id number] Urgent Cat Scan 05/27/22 18:02 Completed MR head wo con* [id number] Routine MRI 06/07/22 09:30 Completed US abdomen limited [id number] Urgent Ultrasound 05/27/22 20:57 Completed US venous duplex upper extremity RT [CV venous duplex Ultrasound 06/07/22 11:59 [place] [id number]] Routine Pending at discharge Category Date Time Status CDIFF [Clostridioides Difficile PCR] Routine Lab 06/13/22 10:32 Uncollected Radiology Impressions Abdomen Ultrasound 05/27/22 20:57 IMPRESSION: 1. No pathologic findings. 2. Decompressed gallbladder. No sign of cholecystitis. Abdomen/Pelvis CT 05/29/22 06:47 IMPRESSION: 1. Abnormally positioned Asencio catheter. Asencio catheter balloon is distended at the junction of the bulbous and penile urethra. Recommend decompression of the balloon before repositioning. Asencio catheter needs to be advanced into the urinary bladder. 2. Urinary bladder continues to be distended with urine and now has air which is probably related to the insertion of the Asencio catheter. 3. Perinephric renal stranding with no renal obstruction, calcification or mass. 4. Atherosclerosis aorta. Head MRI 06/07/22 09:30 IMPRESSION: 1. 5 x 4 mm punctate focus of decreased signal intensity on the gradient echo sequence in the subarachnoid space over the posterior right temporal lobe. No abnormality was seen in this area on the prior CT scan, a focal subarachnoid hemorrhage cannot be ruled out. Alternatively, this could represent hemosiderin deposition. Noncontrast CT scan of the head is recommended for further evaluation. 2. Stable moderate atrophy of the brain parenchyma. 3. Moderate white matter microangiopathic change. ADDENDUM: 06/07/22 [id number] THIS REPORT CONTAINS FINDINGS THAT MAY BE CRITICAL TO PATIENT CARE. The findings were verbally communicated via telephone conference with TREASURE Cueto at 6:50 PM CDT on 06/07/2022. The findings were acknowledged and understood. Venous Duplex 06/07/22 11:59 IMPRESSION: Superficial thrombus within the cephalic vein in the forearm. No evidence of deep vein thrombosis. Head CT 06/07/22 18:48 IMPRESSION: 1. No acute abnormality of the brain. No evidence for hemorrhage to correspond to the finding on prior MRI. The finding on prior MRI likely represented an area of hemosiderin deposition. 2. Stable moderate atrophy of the brain parenchyma. 3. Mild chronic white matter microangiopathic change. 4. Incidental/nonacute findings are listed in the report. Laboratory Results WBC 8.3 10^3/uL (4.0-10.0) 06/12/22 02:52 RBC 2.52 10^6/uL (4.1-5.3) L 06/12/22 02:52 Hgb 8.6 g/dL (11.7-16.6) L 06/12/22 02:52 Hct 25.1 % (42.0-52.0) L 06/12/22 02:52 MCV 99.6 fl (80-94) H 06/12/22 02:52 MCH 34.1 pg (28.0-34.0) H 06/12/22 02:52 MCHC 34.3 g/dL (30.0-36.0) 06/12/22 02:52 RDW 15.2 % (12.1-15.1) H 06/12/22 02:52 Plt Count 212 10^3/cmm (130-400) 06/12/22 02:52 MPV 11.6 fL (7.4-10.4) H 06/12/22 02:52 Neut % (Auto) 82.1 % 06/12/22 02:52 Lymph % (Auto) 8.1 % 06/12/22 02:52 Real % (Auto) 7.6 % 06/12/22 02:52 Eos % (Auto) 1.1 % 06/12/22 02:52 Baso % (Auto) 0.6 % 06/12/22 02:52 Reticulocyte % (Auto) 2.5 % (0.5-2.0) H 05/29/22 21:10 Neut # (Auto) 6.81 10^3/uL (1.8-7.7) 06/12/22 02:52 Lymph # (Auto) 0.7 10^3/uL (0.8-4.8) L 06/12/22 02:52 Real # (Auto) 0.6 10^3/uL (0.2-0.9) 06/12/22 02:52 Eos # (Auto) 0.1 10^3/uL (0.0-0.8) 06/12/22 02:52 Baso # (Auto) 0.1 10^3/uL (0.0-0.1) 06/12/22 02:52 Nucleated RBC % (auto) 0 % 06/12/22 02:52 Nucleated RBCs # 0.0 /100WBC 06/12/22 02:52 Haptoglobin 54.0 mg/L (30-200) 05/29/22 04:42 PT 15.00 SECONDS (12.1-14.9) H 05/31/22 03:09 INR 1.14 (0.8-1.2) 05/31/22 03:09 Sodium 141 mmol/L (136-145) 06/11/22 04:52 Potassium 3.6 mmol/L (3.5-5.1) 06/11/22 04:52 Chloride 104 mmol/L (98-107) 06/11/22 04:52 Carbon Dioxide 24 mmol/L (22-29) 06/11/22 04:52 Anion Gap 16.6 (5-19) 06/11/22 04:52 BUN 13 mg/dL (8-23) 06/11/22 04:52 Creatinine 0.9 mg/dL (0.7-1.2) 06/11/22 04:52 GFR Calculation Not Reportable 06/11/22 04:52 Glucose 92 mg/dL (65-115) 06/11/22 04:52 Calculated Osmolality 292 mOsm/kg (285-295) 06/11/22 04:52 Lactate 0.8 mmol/L (0.5-2.2) 05/31/22 03:09 Calcium 8.4 mg/dL (8.5-10.5) L 06/11/22 04:52 Phosphorus 3.9 mg/dL (2.5-4.5) 06/11/22 04:52 Magnesium 1.8 mg/dL (1.7-2.3) 06/11/22 04:52 Iron 194 ug/dL (59-158) H 05/29/22 21:10 Ferritin 309 ng/mL (30-400) 05/31/22 03:09 Total Bilirubin 0.5 mg/dL (0.15-1.2) 06/11/22 04:52 AST 17 U/L (0-40) 06/11/22 04:52 ALT 11 U/L (0-41) 06/11/22 04:52 Alkaline Phosphatase 126 IU/L (40-130) 06/11/22 04:52 Ammonia 24 umol/L (16-60) 05/31/22 03:09 Lactate Dehydrogenase 288 U/L (135-225) H 05/29/22 04:42 Creatine Kinase 360 U/L (39-308) H* 05/31/22 03:09 Troponin T Baseline 19 ng/L (0-15) H 05/29/22 21:10 Troponin T 120 Minute 18.36 ng/L (0-15) H 05/29/22 22:51 Delta Troponin T -0.64 ABS# (0-10) L 05/29/22 22:51 Troponin T Hi Sens 6Hr 18.24 ng/L (0-15) H 05/30/22 03:44 Troponin T Hi Sens 6Hr Delta -0.76 ng/L (0-12) L 05/30/22 03:44 C-Reactive Protein 78.5 mg/L (0.0-4.9) H 05/31/22 03:09 NT-Pro-B Natriuret Pep 799 pg/mL (0-450) H 06/11/22 04:52 Total Protein 5.6 g/dL (6.6-8.7) L 06/11/22 04:52 Albumin 2.8 g/dL (3.5-5.2) L 06/11/22 04:52 Globulin 2.8 g/dL (1.3-4.6) 06/11/22 04:52 Lipase 27 U/L (13-60) 05/27/22 17:20 Vitamin B12 796 pg/mL (232-1245) 06/06/22 03:23 TSH 3.30 uIU/mL (0.27-4.20) 05/27/22 17:20 Free T4 1.20 ng/dL (0.82-1.77) 05/27/22 17:20 Urine Color Yellow (Yellow) 05/27/22 20:22 Urine Appearance Clear (CLEAR) 05/27/22 20:22 Urine pH 5 (5-7) 05/27/22 20:22 Ur Specific Otis 1.015 (1.005-1.030) 05/27/22 20:22 Urine Protein Neg (Negative) 05/27/22 20:22 Urine Glucose (UA) Norm (Normal) 05/27/22 20: Urine Ketones 2+ (Negative) H 05/27/22 20:22 Urine Blood 2+ (Negative) H 05/27/22 20:22 Urine Nitrate Negative (Negative) 05/27/22 20:22 Urine Bilirubin 1+ (Negative) H 05/27/22 20:22 Urine Urobilinogen 1 mg/dL (Negative) H 05/27/22 20:22 Ur Leukocyte Esterase Negative (Negative) 05/27/22 20:22 Urine RBC 0-4 /hpf (0-2) H 05/27/22 20:22 Urine WBC 0-4 /hpf (0-5) H 05/27/22 20:22 Ur Squamous Epith Cells 0-4 /hpf (0-5) H 05/27/22 20:22 Amorphous Sediment Trace /hpf 05/27/22 20:22 Urine Bacteria Trace /hpf (NONE) 05/27/22 20:22 Urine Mucus 2+ /hpf 06/26/22 20:22 Salicylates < 0.3 mg/dL (3-10) L 05/27/22 17:20 Acetaminophen < 5.0 ug/mL (10-30) L 05/27/22 17:20 Ethyl Alcohol < 10 mg/dL (0-10) 05/27/22 20:20 Blood Type AB Negative 05/29/22 12:55 Rho(D) Type Negative 05/29/22 12:55 Antibody Screen Negative 05/29/22 12:55 Crossmatch See Detail 05/29/22 12:55 Vitals Last Vital Signs Temp 98.1 F 06/13/22 11:23 Pulse 91 06/13/22 11:23 Resp 16 06/13/22 11:23 BP 114/63 06/13/22 11:23 Pulse Ox 98 06/13/22 11:23 Discharge Plan Discharge Patient Disposition: Xfer [facility] Condition: Stable Prescriptions: New doxycycline monohydrate 100 mg Tablet 100 mg PO BID Qty: 14 0RF Vitamin B-1 (mononitrate) 100 mg Tablet 100 mg PO DAILY Qty: 90 3RF Continued omega-3 fatty acids [Fish Oil Concentrate] 1,000 mg capsule 1,000 mg PO BID 0RF tamsulosin 0.4 mg capsule 0.4 mg PO DAILY Qty: 90 2RF potassium chloride [Klor-Con M20] 20 mEq tablet,ER particles/crystals 20 meq PO DAILY Qty: 90 3RF furosemide 40 mg tablet 40 mg PO DAILY Qty: 90 3RF doxazosin 4 mg tablet 4 mg PO DAILY 90 Days Qty: 90 3RF metoprolol tartrate 25 mg tablet 25 mg PO BID Qty: 180 3RF pantoprazole 40 mg tablet,delayed release (DR/EC) 40 mg PO DAILY 0RF Xanax 0.5 mg Tablet 0.5 mg PO DAILY PRN (Reason: Anxiety) 0RF levothyroxine 125 mcg tablet 125 mcg PO DAILY 0RF Discontinued aspirin 325 mg tablet 325 mg PO DAILY 0RF Discharge Orders: Discharge Order (Routine); Ordered 06/13/22 Ordered By: Rodríguez Bae Referrals: Konrad Carvalho MD [Physician] - 7-10 days (Staple removal) Sky Ramos [Primary Care Provider] - Derek Tim DO [Physician] - 1 month (colonoscopy) Discharge Diet: Advance as tolerated Discharge Activity: Increase activity as tolerated Patient Instructions: Opioid Safety Activity Restrictions/Additional Instructions: Come back if you have any new or concerning issues. UROLOGY instructions: 1. The urethra was severely injured when he pulled the catheter out. I could not reestablish continuity of the urethra to the bladder and for that reason he required an open incision to place a suprapubic tube. 2. This tube has been secured with 2 heavy stitches as well as having a balloon inflated inside. It needs to be protected is much as possible to reduce the risk of him trying to pull it out. 3. The tube needs to be changed. The first change will be about 5 weeks postoperatively. We will do that in my office. 4. We will plan on taking the dominique out of his incision in about 7 to 10 days after discharge. Discharge Attestations Time Spent in Discharge Care*: less than 30 min Quality Metrics Clinical Quality Measures [ No reported AMI, CVA or VTE this stay] Coding Level of Care Code Acute Chg FW DC note Diagnoses Pulmonary HTN I27.20 Hypothyroidism E03.9 S/P AVR (aortic valve replacement) Z95.2 Atrial fibrillation I48.91 Venous stasis I87.8 Ascending aortic aneurysm I71.2 Korsakoff disease F04 Suprapubic catheter Z93.59 Alcohol withdrawal delirium F10.231 Hematuria R31.9 Alcoholic hepatitis K70.10 Alcoholism F10.20
--- NOTE | 2022-06-13 15:02 | PC.OT ---
Per RN, pt discharging therefore no OT tx this date.
[2022-06-13 15:40] VITALS: BP 117/66; PULSE 73; RESP 15; TEMP 36.9; O2SAT 98
== END 2022-06-13 19:00 | disposition skilled nursing facility (03) | DRG 981 ==
LOC: ER 18:36 → MEDSURG 20:27
PROVIDERS: Family Medicine; Urology; Admitting Provider Internal Medicine; Emergency Provider Emergency Medicine; PCP Family Medicine; Visit Provider Internal Medicine
PROC: 0TJB8ZZ Inspection of Bladder, Via Natural or Artificial Opening Endoscopic (ICD-10-PCS; CPT 52000; principal; 2022-05-29 18:30)
PROC: 0T9B00Z Drainage of Bladder with Drainage Device, Open Approach (ICD-10-PCS; CPT 51102; 2022-05-29 18:30)
DX: E51.2 Wernicke's encephalopathy (principal); K83.1 Obstruction of bile duct; F10.231 Alcohol dependence with withdrawal delirium; F10.27 Alcohol dependence with alcohol-induced persisting dementia; E87.1 Hypo-osmolality and hyponatremia; I82.611 Acute embolism and thrombosis of superficial veins of right upper extremity; S37.30XA Unspecified injury of urethra, initial encounter; E03.9 Hypothyroidism, unspecified; I10 Essential (primary) hypertension; I48.91 Unspecified atrial fibrillation; I27.20 Pulmonary hypertension, unspecified; I71.4 Abdominal aortic aneurysm, without rupture; Z95.3 Presence of xenogenic heart valve; Z85.038 Personal history of other malignant neoplasm of large intestine; N40.1 Benign prostatic hyperplasia with lower urinary tract symptoms; R33.8 Other retention of urine; Y90.9 Presence of alcohol in blood, level not specified; R26.89 Other abnormalities of gait and mobility; F10.26 Alcohol dependence with alcohol-induced persisting amnestic disorder; K70.10 Alcoholic hepatitis without ascites; R19.7 Diarrhea, unspecified; D64.9 Anemia, unspecified; R31.9 Hematuria, unspecified; T83.021A Displacement of indwelling urethral catheter, initial encounter; X58.XXXA Exposure to other specified factors, initial encounter; I87.8 Other specified disorders of veins
CPT/HCPCS: 36415; 36430; 51701; 51702; 51798; 70450; 70551; 74178; 76705; 80053; 80307; 80503; 81001; 82140; 82274; 82550; 82607; 82728; 83010; 83540; 83605; 83615; 83690; 83735; 83880; 84100; 84439; 84443; 84484; 85014; 85018; 85025; 85045; 85610; 86140; 86850; 86900; 86920; 93005; 93971; 96372; 97110; 97116; 97161; 97166; 97530; 97535; 99285; C9113; J1100; J1630; J1940; J2060; J2370; J2405; J2543; J2704; J3010; J3411; J3475; J3490; J7030; P9016; Q9967